=== PATIENT | male | born 1985 | race Caucasian/White ===

== ENCOUNTER → 2016-04-18 | Outpatient (CLI) | payer BC ==
[2016-04-18 08:45] LABS: ALT 65 U/L (21-72); AST 47 U/L (17-59); Alkaline Phosphatase 71 U/L (38-126); Anion Gap 12 mmol/L; Blood Urea Nitrogen 23 mg/dL (9-20); Calcium 9.8 mg/dL (8.4-10.2); Carbon Dioxide 28 mmol/L (22-30); Chloride 102 mmol/L (98-107); Cholesterol 229 mg/dL (<200); Glucose 282 mg/dL (74-99); HDL Cholesterol 98 mg/dL (40-60); Non-African American GFR(MDRD) >60 (>60 ml/min/1.73 sqM); Potassium 5.4 mmol/L (3.5-5.1); Sodium 142 mmol/L (137-145); Total Bilirubin 0.6 mg/dL (0.2-1.3); Total Protein 7.9 g/dL (6.3-8.2); Triglycerides 69 mg/dL (<150)
== END | disposition home or self-care (01) ==
LOC: LABWHC1 08:11
PROVIDERS: ATTEND Internal Medicine Endocrinology, Diabetes & Metabolism
DX: E11.65 Type 2 diabetes mellitus with hyperglycemia (principal); E03.8 Other specified hypothyroidism
CPT/HCPCS: 36415; 80053; 80061; 82043; 84443

== ENCOUNTER → 2016-09-22 | Outpatient (CLI) | payer BC ==
[2016-09-22 08:31] LABS: Basophils # (A) 0.1 k/uL (0-0.2); Basophils % (A) 1 %; CH 29.6; CHCM 33.6; Eosinophils # (A) 0.4 k/uL (0-0.7); Eosinophils % (A) 7 %; HCT 39.9 % (39.0-53.0); HDW 2.81; HGB 13.4 gm/dL (13.0-17.5); Luc # (Auto) 0.16; Luc % (Auto) 3; Lymphocytes # (A) 1.9 k/uL (1.0-4.8); Lymphocytes % (A) 37 %; MCH 29.7 pg (25.0-35.0); MCHC 33.6 g/dL (31.0-37.0); MCV 88.3 fL (80.0-100.0); Mean Platelet Volume 9.1; Monocytes # (A) 0.3 k/uL (0-1.0); Monocytes % (A) 5 %; Neutrophils # (A) 2.3 k/uL (1.3-7.7); Neutrophils % (A) 46 %; RBC 4.52 m/uL (4.30-5.90); RDW 14.9 % (11.5-15.5); WBC (Perox) 4.96
[2016-09-22 08:38] LABS: Amorphous Sediment,Urine Rare /hpf; Appearance,Urine Cloudy (Clear); Bacteria,Urine Rare /hpf; Bilirubin,Urine Negative (Negative); Glucose,Urine (UA) Negative (Negative); Ketones,Urine Negative (Negative); Leukocyte Esterase,Urine Negative (Negative); Mucus,Urine Rare /hpf; Nitrite,Urine Negative (Negative); PH, Urine 5.5 (5.0-8.0); Particle Count 5966; Protein,Urine 2+ (Negative); Specific Gravity,Urine 1.012 (1.001-1.035); Sperm,Urine Few /hpf; UA Billing (MACRO vs. MICRO) MICRO; Urobilinogen,Urine <2.0 mg/dL (<2.0); WBC,Urine 1 /hpf (0-5)
[2016-09-22 10:33] LABS: Urine Creatinine 100.3 mg/dL
[2016-09-22 14:07] LABS: ALT 44 U/L (21-72); AST 28 U/L (17-59); Alkaline Phosphatase 71 U/L (38-126); Anion Gap 9 mmol/L; Blood Urea Nitrogen 21 mg/dL (9-20); Calcium 9.8 mg/dL (8.4-10.2); Carbon Dioxide 27 mmol/L (22-30); Chloride 105 mmol/L (98-107); Cholesterol 176 mg/dL (<200); Glucose 84 mg/dL (74-99); HDL Cholesterol 84 mg/dL (40-60); Iron 70 ug/dL (49-181); Magnesium 2.4 mg/dL (1.6-2.3); Non-African American GFR(MDRD) >60 (>60 ml/min/1.73 sqM); Phosphorous 3.9 mg/dL (2.5-4.5); Potassium 4.7 mmol/L (3.5-5.1); Sodium 141 mmol/L (137-145); Total Bilirubin 0.4 mg/dL (0.2-1.3); Total Protein 7.4 g/dL (6.3-8.2); Triglycerides 50 mg/dL (<150)
[2016-09-22 14:22] LABS: % Iron Saturation 25.1 % (20-50); Total Iron Binding Capacity 279 ug/dL (261-462)
[2016-09-22 19:02] LABS: ANA w/Reflex to Titer NEGATIVE (NEGATIVE)
[2016-09-23 14:06] LABS: C-ANCA <1:20 Titer (<1:20); P-ANCA <1:20 Titer (<1:20)
[2016-09-24 06:10] LABS: Complement Total (CH50) 95 U/mL (42 - 95)
== END | disposition home or self-care (01) ==
LOC: LABWHC1 07:45
PROVIDERS: ATTEND Internal Medicine Nephrology
DX: E11.65 Type 2 diabetes mellitus with hyperglycemia (principal); N18.2 Chronic kidney disease, stage 2 (mild); E11.22 Type 2 diabetes mellitus with diabetic chronic kidney disease; D63.1 Anemia in chronic kidney disease; R80.9 Proteinuria, unspecified; E21.3 Hyperparathyroidism, unspecified; E55.9 Vitamin D deficiency, unspecified; M10.9 Gout, unspecified; N39.0 Urinary tract infection, site not specified
CPT/HCPCS: 36415; 80053; 80061; 81001; 82043; 82306; 82570; 82728; 83516; 83540; 83550; 83735; 83970; 84100; 84165; 84550; 85025; 86038; 86160; 86162; 86225; 86255; 86335

== ENCOUNTER → 2017-04-07 | Outpatient (CLI) | payer BC ==
[2017-04-07 13:27] LABS: Anion Gap 11 mmol/L; Blood Urea Nitrogen 17 mg/dL (9-20); Calcium 9.9 mg/dL (8.4-10.2); Carbon Dioxide 30 mmol/L (22-30); Chloride 101 mmol/L (98-107); Glucose 68 mg/dL (74-99); Magnesium 2.2 mg/dL (1.6-2.3); Sodium 142 mmol/L (137-145)
[2017-04-07 13:35] LABS: Basophils # (A) 0.1 k/uL (0-0.2); Basophils % (A) 1 %; Eosinophils # (A) 0.2 k/uL (0-0.7); Eosinophils % (A) 3 %; HCT 40.7 % (39.0-53.0); Lymphocytes # (A) 1.6 k/uL (1.0-4.8); Lymphocytes % (A) 27 %; MCH 28.8 pg (25.0-35.0); MCHC 31.9 g/dL (31.0-37.0); MCV 90.2 fL (80.0-100.0); Mean Platelet Volume 7.9; Monocytes # (A) 0.3 k/uL (0-1.0); Monocytes % (A) 5 %; Neutrophils # (A) 3.6 k/uL (1.3-7.7); Neutrophils % (A) 62 %; Platelet Count 155 k/uL (150-450); RBC 4.51 m/uL (4.30-5.90); RDW 13.7 % (11.5-15.5); WBC 5.9 k/uL (3.8-10.6)
== END | disposition home or self-care (01) ==
LOC: LABWHC1 12:31
PROVIDERS: ATTEND Nurse Practitioner Family
DX: N18.1 Chronic kidney disease, stage 1 (principal); D64.9 Anemia, unspecified
CPT/HCPCS: 36415; 80048; 83735; 85025

== ENCOUNTER → 2017-09-15 | Outpatient (CLI) | payer BC ==
[2017-09-15 09:39] LABS: Albumin 4.8 g/dL (3.5-5.0); Potassium 4.8 mmol/L (3.5-5.1); Total Bilirubin 0.7 mg/dL (0.2-1.3); Total Protein 7.8 g/dL (6.3-8.2)
[2017-09-15 20:59] LABS: Hemoglobin A1C 10.6 % (4.0-6.0)
== END | disposition home or self-care (01) ==
LOC: LABWHC1 08:21
PROVIDERS: ATTEND Internal Medicine Endocrinology, Diabetes & Metabolism
DX: E10.65 Type 1 diabetes mellitus with hyperglycemia (principal)
CPT/HCPCS: 36415; 80053; 80061; 82043; 82570; 83036; 84443

== ENCOUNTER 2019-11-11 15:13 | Inpatient (IN) | payer BC ==
[2019-11-11 15:25] VITALS: RESP 16
[2019-11-11 15:31] LABS: Glucose,Whole Blood 514 mg/dL (75-99)
[2019-11-11] MEDS ORDERED: SODIUM CHLORIDE 0.9% 2,000 ML IV ONE (15:38)
[2019-11-11 16:00] LABS: VBG PH 7.34 (7.31-7.41)
[2019-11-11 16:05] LABS: ALT 39 U/L (4-49); AST 30 U/L (17-59); African American GFR (CKD) 62 (>60 ml/min/1.73 sqM); Albumin 5.2 g/dL (3.5-5.0); Alkaline Phosphatase 91 U/L (38-126); Anion Gap 20 mmol/L; Blood Urea Nitrogen 33 mg/dL (9-20); Carbon Dioxide 20 mmol/L (22-30); Chloride 92 mmol/L (98-107); Non-African American GFR(CKD) 53 (>60 ml/min/1.73 sqM); Potassium 5.2 mmol/L (3.5-5.1); Sodium 132 mmol/L (137-145); Total Bilirubin 0.9 mg/dL (0.2-1.3); Total Protein 8.1 g/dL (6.3-8.2)
[2019-11-11 16:13] LABS: Basophils # (A) 0.1 k/uL (0-0.2); Basophils % (A) 1 %; Eosinophils % (A) 0 %; HCT 41.3 % (39.0-53.0); HGB 13.1 gm/dL (13.0-17.5); Lymphocytes # (A) 2.4 k/uL (1.0-4.8); Lymphocytes % (A) 22 %; MCHC 31.7 g/dL (31.0-37.0); MCV 88.4 fL (80.0-100.0); Mean Platelet Volume 9.4; Monocytes # (A) 0.5 k/uL (0-1.0); Monocytes % (A) 4 %; Neutrophils # (A) 7.8 k/uL (1.3-7.7); Neutrophils % (A) 72 %; Platelet Count 170 k/uL (150-450); RBC 4.67 m/uL (4.30-5.90); RDW 13.9 % (11.5-15.5); WBC 10.9 k/uL (3.8-10.6)
[2019-11-11 16:14] LABS: Amorphous Sediment,Urine Rare /hpf; Appearance,Urine Clear (Clear); Bilirubin,Urine Negative (Negative); Blood,Urine Small (Negative); Color,Urine Light Yellow; Glucose 550 mg/dL (74-99); Glucose,Urine (UA) 4+ (Negative); Hyaline Casts,Urine 3 /lpf (0-2); Leukocyte Esterase,Urine Negative (Negative); Mucus,Urine Rare /hpf; Nitrite,Urine Negative (Negative); PH, Urine 5.5 (5.0-8.0); Protein,Urine 1+ (Negative); RBC,Urine <1 /hpf (0-5); Specific Gravity,Urine 1.027 (1.001-1.035); Squamous Epithelial Cell,Urine <1 /hpf (0-4); Urobilinogen,Urine <2.0 mg/dL (<2.0); WBC,Urine 1 /hpf (0-5)
[2019-11-11 16:15] LABS: Ketones,Urine 3+ (Negative)
--- NOTE | 2019-11-11 16:21 | ED ---
General Adult HPI - General Chief complaint: Recheck/Abnormal Lab/Rx Stated complaint: high sugar Time Seen by Provider: 11/11/19 15:37 Source: patient, RN notes reviewed Mode of arrival: ambulatory Limitations: no limitations - History of Present Illness Initial comments: 34-year-old male presents emergency Department chief complaint of elevated blood sugar. Patient is blood sugar has consistently elevated. Patient's blood sugar did not read earlier. Patient did give himself some insulin. Patient states that he's had no recent infections denies any fever, chills, cough, URI symptoms he did have an episode nausea vomiting. Patient denies any chest pain, headache or dizziness. 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 Patient is on insulin injections no insulin pump. Review of Systems ROS Statement: Those systems with pertinent positive or pertinent negative responses have been documented in the HPI. ROS Other: All systems not noted in ROS Statement are negative. Past Medical History Past Medical History: Diabetes Mellitus Additional Past Medical History / Comment(s): T1D History of Any Multi-Drug Resistant Organisms: None Reported Past Surgical History: No Surgical Hx Reported Smoking Status: Never smoker Past Alcohol Use History: Rare Past Drug Use History: None Reported General Exam Limitations: no limitations General appearance: alert, in no apparent distress Head exam: Present: atraumatic, normocephalic, normal inspection Eye exam: Present: normal appearance, PERRL, EOMI. Absent: scleral icterus, conjunctival injection, periorbital swelling ENT exam: Present: normal exam, normal oropharynx, mucous membranes moist Neck exam: Present: normal inspection, full ROM. Absent: tenderness, meningismus, lymphadenopathy Respiratory exam: Present: normal lung sounds bilaterally. Absent: respiratory distress, wheezes, rales, rhonchi, stridor Cardiovascular Exam: Present: regular rate, normal rhythm, normal heart sounds. Absent: systolic murmur, diastolic murmur, rubs, gallop, clicks GI/Abdominal exam: Present: soft, normal bowel sounds. Absent: distended, tenderness, guarding, rebound, rigid Neurological exam: Present: alert, oriented X3 Skin exam: Present: warm, dry, intact, normal color. Absent: rash Course Vital Signs 11/11/19 15:23 Temperature 98.0 F Pulse Rate 66 Respiratory 16 Rate Blood Pressure 134/75 O2 Sat by Pulse 99 Oximetry Procedures - [place] Protocol (Time Out) Nurse: Rosa Belle Medical Decision Making - Medical Decision Making Initially med telemetry for DKA. Patient was given fluid bolus, started on insulin drip with repeat labs. - Lab Data Result diagrams: 11/11/19 15:40 11/11/19 15:40 Lab Results 11/11/19 11/11/19 11/11/19 Range/Units 15:30 15:40 15:40 WBC 10.9 H (3.8-10.6) k/uL RBC 4.67 (4.30-5.90) m/uL Hgb 13.1 (13.0-17.5) gm/dL Hct 41.3 (39.0-53.0) % MCV 88.4 (80.0-100.0) fL MCH 28.0 (25.0-35.0) pg MCHC 31.7 (31.0-37.0) g/dL RDW 13.9 (11.5-15.5) % Plt Count 170 (150-450) k/uL Neutrophils % 72 % Lymphocytes % 22 % Monocytes % 4 % Eosinophils % 0 % Basophils % 1 % Neutrophils # 7.8 H (1.3-7.7) k/uL Lymphocytes # 2.4 (1.0-4.8) k/uL Monocytes # 0.5 (0-1.0) k/uL Eosinophils # 0.0 (0-0.7) k/uL Basophils # 0.1 (0-0.2) k/uL VBG pH (7.31-7.41) VBG pCO2 (37-51) mmHg VBG HCO3 (24-28) mmol/L Sodium (137-145) mmol/L Potassium (3.5-5.1) mmol/L Chloride (98-107) mmol/L Carbon Dioxide (22-30) mmol/L Anion Gap mmol/L BUN (9-20) mg/dL Creatinine (0.66-1.25) mg/dL Est GFR (CKD-EPI)AfAm (>60 ml/min/1.73 sqM) Est GFR (CKD-EPI)NonAf (>60 ml/min/1.73 sqM) Glucose (74-99) mg/dL POC Glucose (mg/dL) 514 H (75-99) mg/dL POC Glu Phone Circuit Operator ID Rosa Belle Plasma Lactic Acid Ben (0.7-2.0) mmol/L Calcium (8.4-10.2) mg/dL Total Bilirubin (0.2-1.3) mg/dL AST (17-59) U/L ALT (4-49) U/L Alkaline Phosphatase (38-126) U/L Total Protein (6.3-8.2) g/dL Albumin (3.5-5.0) g/dL Urine Color Light Yellow Urine Appearance Clear (Clear) Urine pH 5.5 (5.0-8.0) Ur Specific [place] 1.027 (1.001-1.035) Urine Protein 1+ H (Negative) Urine Glucose (UA) 4+ H (Negative) Urine Ketones 3+ H (Negative) Urine Blood Small H (Negative) Urine Nitrite Negative (Negative) Urine Bilirubin Negative (Negative) Urine Urobilinogen <2.0 (<2.0) mg/dL Ur Leukocyte Esterase Negative (Negative) Urine RBC <1 (0-5) /hpf Urine WBC 1 (0-5) /hpf Ur Squamous Epith Cells <1 (0-4) /hpf Amorphous Sediment Rare H (None) /hpf Hyaline Casts 3 H (0-2) /lpf Urine Mucus Rare H (None) /hpf Acetone, Qual (Negative) 11/11/19 11/11/19 11/11/19 Range/Units 15:40 15:40 15:40 WBC (3.8-10.6) k/uL RBC (4.30-5.90) m/uL Hgb (13.0-17.5) gm/dL Hct (39.0-53.0) % MCV (80.0-100.0) fL MCH (25.0-35.0) pg MCHC (31.0-37.0) g/dL RDW (11.5-15.5) % Plt Count (150-450) k/uL Neutrophils % % Lymphocytes % % Monocytes % % Eosinophils % % Basophils % % Neutrophils # (1.3-7.7) k/uL Lymphocytes # (1.0-4.8) k/uL Monocytes # (0-1.0) k/uL Eosinophils # (0-0.7) k/uL Basophils # (0-0.2) k/uL VBG pH 7.34 (7.31-7.41) VBG pCO2 42 (37-51) mmHg VBG HCO3 22 L (24-28) mmol/L Sodium 132 L (137-145) mmol/L Potassium 5.2 H (3.5-5.1) mmol/L Chloride 92 L (98-107) mmol/L Carbon Dioxide 20 L (22-30) mmol/L Anion Gap 20 mmol/L BUN 33 H (9-20) mg/dL Creatinine 1.64 H (0.66-1.25) mg/dL Est GFR (CKD-EPI)AfAm 62 (>60 ml/min/1.73 sqM) Est GFR (CKD-EPI)NonAf 53 (>60 ml/min/1.73 sqM) Glucose 550 H* (74-99) mg/dL POC Glucose (mg/dL) (75-99) mg/dL POC Glu Phone Circuit Operator ID Plasma Lactic Acid Ben 1.8 (0.7-2.0) mmol/L Calcium 10.0 (8.4-10.2) mg/dL Total Bilirubin 0.9 (0.2-1.3) mg/dL AST 30 (17-59) U/L ALT 39 (4-49) U/L Alkaline Phosphatase 91 (38-126) U/L Total Protein 8.1 (6.3-8.2) g/dL Albumin 5.2 H (3.5-5.0) g/dL Urine Color Urine Appearance (Clear) Urine pH (5.0-8.0) Ur Specific [place] (1.001-1.035) Urine Protein (Negative) Urine Glucose (UA) (Negative) Urine Ketones (Negative) Urine Blood (Negative) Urine Nitrite (Negative) Urine Bilirubin (Negative) Urine Urobilinogen (<2.0) mg/dL Ur Leukocyte Esterase (Negative) Urine RBC (0-5) /hpf Urine WBC (0-5) /hpf Ur Squamous Epith Cells (0-4) /hpf Amorphous Sediment (None) /hpf Hyaline Casts (0-2) /lpf Urine Mucus (None) /hpf Acetone, Qual Positive (Negative) 11/11/19 Range/Units 16:43 WBC (3.8-10.6) k/uL RBC (4.30-5.90) m/uL Hgb (13.0-17.5) gm/dL Hct (39.0-53.0) % MCV (80.0-100.0) fL MCH (25.0-35.0) pg MCHC (31.0-37.0) g/dL RDW (11.5-15.5) % Plt Count (150-450) k/uL Neutrophils % % Lymphocytes % % Monocytes % % Eosinophils % % Basophils % % Neutrophils # (1.3-7.7) k/uL Lymphocytes # (1.0-4.8) k/uL Monocytes # (0-1.0) k/uL Eosinophils # (0-0.7) k/uL Basophils # (0-0.2) k/uL VBG pH (7.31-7.41) VBG pCO2 (37-51) mmHg VBG HCO3 (24-28) mmol/L Sodium (137-145) mmol/L Potassium (3.5-5.1) mmol/L Chloride (98-107) mmol/L Carbon Dioxide (22-30) mmol/L Anion Gap mmol/L BUN (9-20) mg/dL Creatinine (0.66-1.25) mg/dL Est GFR (CKD-EPI)AfAm (>60 ml/min/1.73 sqM) Est GFR (CKD-EPI)NonAf (>60 ml/min/1.73 sqM) Glucose (74-99) mg/dL POC Glucose (mg/dL) 472 H (75-99) mg/dL POC Glu Phone Circuit Operator ID [place], Rosa Plasma Lactic Acid Ben (0.7-2.0) mmol/L Calcium (8.4-10.2) mg/dL Total Bilirubin (0.2-1.3) mg/dL AST (17-59) U/L ALT (4-49) U/L Alkaline Phosphatase (38-126) U/L Total Protein (6.3-8.2) g/dL Albumin (3.5-5.0) g/dL Urine Color Urine Appearance (Clear) Urine pH (5.0-8.0) Ur Specific [place] (1.001-1.035) Urine Protein (Negative) Urine Glucose (UA) (Negative) Urine Ketones (Negative) Urine Blood (Negative) Urine Nitrite (Negative) Urine Bilirubin (Negative) Urine Urobilinogen (<2.0) mg/dL Ur Leukocyte Esterase (Negative) Urine RBC (0-5) /hpf Urine WBC (0-5) /hpf Ur Squamous Epith Cells (0-4) /hpf Amorphous Sediment (None) /hpf Hyaline Casts (0-2) /lpf Urine Mucus (None) /hpf Acetone, Qual (Negative) Critical Care Time Critical Care Time: Yes Total Critical Care Time: 35 Critical Care Time: Total 35 minutes of critical care time use to initially used to evaluate regan ent, review past month very, or any labs, reviewing old labs or a fluid bolus and insulin drip. Case discussed with admitting physician. Patiently admitted to telemetry. Disposition Clinical Impression: DKA (diabetic ketoacidoses) Disposition: ADMITTED IP TO THIS HOSP Condition: Fair Referrals: Ale Edwards MD [Primary Care Provider] - 1-2 days
[2019-11-11 16:46] LABS: Glucose,Whole Blood 472 mg/dL (75-99)
[2019-11-11] MEDS ORDERED: SODIUM CHLORIDE 0.9% 1,000 ML IV SCH (17:30)
[2019-11-11] MEDS ORDERED: INSULIN REGULAR 100 UNIT in SODIUM CHLORIDE 0.9% 100 ML IV SCH (17:30)
[2019-11-11 17:49] LABS: Glucose,Whole Blood 372 mg/dL (75-99)
[2019-11-11] MEDS ORDERED: D5-0.45% NACL WITH KCL 20MEQ/L 1,000 ML IV SCH (18:30)
[2019-11-11 19:11] LABS: Glucose,Whole Blood 296 mg/dL (75-99)
[2019-11-11] MEDS ORDERED: ACETAMINOPHEN TAB 325 MG TAB PO PRN (19:27)
[2019-11-11] MEDS ORDERED: NALOXONE 0.4 MG/ML 1 ML VIAL IV PRN (19:27)
[2019-11-11 19:56] LABS: Glucose,Whole Blood 228 mg/dL (75-99)
[2019-11-11] MEDS: HEPARIN SODIUM,PORCINE 5,000 UNIT/ML 1 ML VIAL SQ SCH (20:53)
[2019-11-11 21:08] LABS: Glucose,Whole Blood 221 mg/dL (75-99)
[2019-11-11 21:10] LABS: Potassium 4.2 mmol/L (3.5-5.1)
[2019-11-11] MEDS: DEXTROSE 5%-0.45% NACL 1,000 ML IV SCH (21:26)
[2019-11-11 22:00] LABS: Glucose,Whole Blood 232 mg/dL (75-99)
[2019-11-11 23:03] LABS: Glucose,Whole Blood 192 mg/dL (75-99)
[2019-11-11 23:58] LABS: Glucose,Whole Blood 192 mg/dL (75-99)
[2019-11-12 00:57] LABS: Calcium 8.6 mg/dL (8.4-10.2); Phosphorus 2.9 mg/dL (2.5-4.5); Potassium 4.2 mmol/L (3.5-5.1)
[2019-11-12 01:03] LABS: Glucose,Whole Blood 115 mg/dL (75-99)
[2019-11-12] MEDS ORDERED: INSULIN DETEMIR (LEVEMIR) 100 UNIT/ML SYR SQ SCH (01:19)
[2019-11-12] MEDS: DEXTROSE 5%-0.45% NACL 1,000 ML IV SCH (01:33)
[2019-11-12] MEDS ORDERED: LEVOTHYROXINE 125 MCG TAB PO SCH (06:30)
[2019-11-12 06:49] LABS: Basophils # (A) 0.1 k/uL (0-0.2); Basophils % (A) 1 %; Eosinophils # (A) 0.1 k/uL (0-0.7); Eosinophils % (A) 1 %; HCT 35.1 % (39.0-53.0); HGB 11.4 gm/dL (13.0-17.5); Lymphocytes # (A) 2.1 k/uL (1.0-4.8); Lymphocytes % (A) 34 %; MCH 27.9 pg (25.0-35.0); MCHC 32.5 g/dL (31.0-37.0); MCV 85.9 fL (80.0-100.0); Monocytes # (A) 0.4 k/uL (0-1.0); Monocytes % (A) 6 %; Neutrophils # (A) 3.5 k/uL (1.3-7.7); Neutrophils % (A) 55 %; Platelet Count 154 k/uL (150-450); RBC 4.08 m/uL (4.30-5.90); RDW 14.3 % (11.5-15.5); WBC 6.3 k/uL (3.8-10.6)
[2019-11-12 06:57] LABS: Albumin 3.8 g/dL (3.5-5.0); Calcium 8.8 mg/dL (8.4-10.2); Potassium 4.5 mmol/L (3.5-5.1); Total Bilirubin 0.6 mg/dL (0.2-1.3); Total Protein 6.3 g/dL (6.3-8.2)
[2019-11-12 07:06] LABS: Glucose,Whole Blood 55 mg/dL (75-99)
[2019-11-12] MEDS: INSULIN ASPART (NovoLOG) 100 UNIT/ML VIAL SQ SCH ×2 (07:09→12:56)
[2019-11-12 07:23] LABS: Glucose,Whole Blood 73 mg/dL (75-99)
[2019-11-12] MEDS ORDERED: PRAVASTATIN SODIUM 20 MG TAB PO SCH (09:00)
--- NOTE | 2019-11-12 09:10 | P.HPIM ---
History of Present Illness H&P Date: 11/11/19 34-year-old male with PMH of hypothyroidism, type 1 diabetes mellitus presents to [facility] for nausea and vomiting. Patient states this morning he felt nausea and had one episode of vomiting. He also endorsed abdominal bloating. He attempted to check his blood sugar which his glucometer was not registering. He gave himself 8 units of insulin prior to coming to the ED. Denies any other symptoms. States that his sugars are usually under control. He denies any headache, lower extremity edema, nausea or vomiting, fever chills, cough, chest pain, shortness of breath, palpitations, changes in urination or bowel habits. No changes in appetite away. He denies any dizzines s, numbness/weakness/tingling of extremities. In the ED, his vital signs are stable. CBC showed leukocytosis of 10.9. VBG showed pH of 7.34, pCO2 of 42, bicarb of 22. CMP showed sodium 132, potassium 5.2, chloride 92, bicarb 20, BUN 33, creatinine 1.64, glucose 550. Lactic acid was negative. Urinalysis showed 3+ ketones. Acetone was negative. Patient is admitted for DKA. Review of Systems Pertinent positives and negatives as discussed in HPI, a complete review of systems was performed and all other systems are negative. Past Medical History Past Medical History: Diabetes Mellitus Additional Past Medical History / Comment(s): T1D History of Any Multi-Drug Resistant Organisms: None Reported Past Surgical History: No Surgical Hx Reported Smoking Status: Never smoker Past Alcohol Use History: Rare Past Drug Use History: None Reported - Past Family History Father Family Medical History: Myocardial Infarction (MS) Additional Family Medical History / Comment(s): of a heart attack Medications and Allergies Home Medications Medication Instructions Recorded Confirmed Type INSULIN ASPART (NovoLOG) [NovoLOG 2 units SQ AC-LUNCH 11/11/19 11/11/19 History (formulary)] INSULIN ASPART (NovoLOG) [NovoLOG 3 units SQ AC-BID 11/11/19 11/11/19 History (formulary)] INSULIN ASPART (NovoLOG) [NovoLOG 8 unit SQ ONCE 11/11/19 11/11/19 History (formulary)] Insulin Glargine [Lantus] 16 - 20 units PO HS 11/11/19 11/11/19 History Levothyroxine Sodium [Synthroid] 125 mcg PO QAM 11/11/19 11/11/19 History Mv-Mn/C/Glutamin/Lysin/[id number] 2 tab PO BID 11/11/19 11/11/19 History [Airborne Gummies] Pravastatin Sodium [Pravachol] 10 mg PO QAM 11/11/19 11/11/19 History guaiFENesin-DM 100-10MG/5ML 400 mg PO Q6H PRN 11/11/19 11/11/19 History [Robitussin DM] Allergies Allergy/AdvReac Type Severity Reaction Status Date / Time No Known Allergies Allergy Verified 11/11/19 18:02 Physical Exam Vitals: Vital Signs Temp Pulse Resp BP Pulse Ox 11/11/19 18:01 76 16 118/77 99 11/11/19 15:23 98.0 F 66 16 134/75 99 Intake and Output 11/11/19 11/11/19 11/11/19 06:59 14:59 22:59 Intake Total 7.991 Balance 7.991 Intake: Intake, IV Titration 7.991 Amount Insulin Regular 100 unit 7.991 In Sodium Chloride 0.9% 100 ml @ 0.1 UNITS/KG/HR 7.376 mls/hr IV .[id number] [facility] Rx#:[id number] Other: Weight 73.028 kg General: [non toxic], [no distress], [appears at stated age] Derm: [warm], [dry] Head: [atraumatic], [normocephalic], [symmetric] Eyes: [EOMI], [no lid lag], [anicteric sclera] Mouth: [no lip lesion], [mucus membranes moist] Cardiovascular: [S1S2 reg], [no murmur], [positive posterior tibial pulse bilateral], Lungs: [CTA bilateral], [no rhonchi, no rales] , [no accessory muscle use] Abdominal: [soft], [ nontender to palpation], [no guarding], [no appreciable organomegaly] Ext: [no gross muscle atrophy], [no edema], [no contractures] Neuro: [ CN II-XI grossly intact], [no focal neuro deficits] Psych: [Alert], [oriented], [appropriate affect] Results CBC & Chem 7: 11/12/19 06:16 11/12/19 06:16 Labs: Abnormal Lab Results - Last 24 Hours (Table) 11/11/19 11/11/19 11/11/19 Range/Units 15:30 15:40 15:40 WBC 10.9 H (3.8-10.6) k/uL Neutrophils # 7.8 H (1.3-7.7) k/uL VBG HCO3 (24-28) mmol/L Sodium (137-145) mmol/L Potassium (3.5-5.1) mmol/L Chloride (98-107) mmol/L Carbon Dioxide (22-30) mmol/L BUN (9-20) mg/dL Creatinine (0.66-1.25) mg/dL Glucose (74-99) mg/dL POC Glucose (mg/dL) 514 H (75-99) mg/dL Albumin (3.5-5.0) g/dL Urine Protein 1+ H (Negative) Urine Glucose (UA) 4+ H (Negative) Urine Ketones 3+ H (Negative) Urine Blood Small H (Negative) Amorphous Sediment Rare H (None) /hpf Hyaline Casts 3 H (0-2) /lpf Urine Mucus Rare H (None) /hpf 11/11/19 11/11/19 11/11/19 Range/Units 15:40 15:40 16:43 WBC (3.8-10.6) k/uL Neutrophils # (1.3-7.7) k/uL VBG HCO3 22 L (24-28) mmol/L Sodium 132 L (137-145) mmol/L Potassium 5.2 H (3.5-5.1) mmol/L Chloride 92 L (98-107) mmol/L Carbon Dioxide 20 L (22-30) mmol/L BUN 33 H (9-20) mg/dL Creatinine 1.64 H (0.66-1.25) mg/dL Glucose 550 H* (74-99) mg/dL POC Glucose (mg/dL) 472 H (75-99) mg/dL Albumin 5.2 H (3.5-5.0) g/dL Urine Protein (Negative) Urine Glucose (UA) (Negative) Urine Ketones (Negative) Urine Blood (Negative) Amorphous Sediment (None) /hpf Hyaline Casts (0-2) /lpf Urine Mucus (None) /hpf 11/11/19 Range/Units 17:44 WBC (3.8-10.6) k/uL Neutrophils # (1.3-7.7) k/uL VBG HCO3 (24-28) mmol/L Sodium (137-145) mmol/L Potassium (3.5-5.1) mmol/L Chloride (98-107) mmol/L Carbon Dioxide (22-30) mmol/L BUN (9-20) mg/dL Creatinine (0.66-1.25) mg/dL Glucose (74-99) mg/dL POC Glucose (mg/dL) 372 H (75-99) mg/dL Albumin (3.5-5.0) g/dL Urine Protein (Negative) Urine Glucose (UA) (Negative) Urine Ketones (Negative) Urine Blood (Negative) Amorphous Sediment (None) /hpf Hyaline Casts (0-2) /lpf Urine Mucus (None) /hpf Assessment and Plan Assessment: DKA Leukocytosis Pseudohyponatremia Hyperkalemia Acute kidney injury Hypertension Hypothyroidism Patient appears to be in DKA. He will be started on insulin drip. Patient to be started on D5 half-normal saline at 125 mL per hour. BMP will be repeated every 4 hours. Transition to subcutaneous insulin when anion gap and bicarb normalizes. Telemetry monitoring. Diabetic diet. Diabetic education. Follow A1c. Likely related to the above process. No signs of infection. Plan: Repeat CBC tomorrow morning. Likely related to elevated blood glucose. Plans: Repeat BMP tomorrow morning. Creatinine 1.64. Likely related to dehydration. Plans: IV hydration as above. Repeat BMP tomorrow morning. Avoid nephrotoxins. BP 118/77. Plans: Monitor vitals, adjust medications if necessary. Plans: Restart Synthroid. Patient will be full code.
[2019-11-12] MEDS: HEPARIN SODIUM,PORCINE 5,000 UNIT/ML 1 ML VIAL SQ SCH (09:44)
--- NOTE | 2019-11-12 10:00 | P.DS ---
Providers Date of admission: 11/11/19 17:17 Expected date of discharge: 11/12/19 Attending physician: Camilo Tamez MD [facility] Course: 34-year-old male with PMH of hypothyroidism, type 1 diabetes mellitus presents to [facility] for nausea and vomiting. Patient states this morning he felt nausea and had one episode of vomiting. He also endorsed abdominal bloating. He attempted to check his blood sugar which his glucometer was not registering. He gave himself 8 units of insulin prior to coming to the ED. Denies any other symptoms. States that his sugars are usually under control. He denies any headache, lower extremity edema, nausea or vomiting, fever chills, cough, chest pain, shortness of breath, palpitations, changes in urination or bowel habits. No changes in appetite away. He denies any dizziness, numbness/weakness/tingling of extremities. In the ED, his vital signs are stable. CBC showed leukocytosis of 10.9. VBG showed pH of 7.34, pCO2 of 42, bicarb of 22. CMP showed sodium 132, potassium 5.2, chloride 92, bicarb 20, BUN 33, creatinine 1.64, glucose 550. Lactic acid was negative. Urinalysis showed 3+ ketones. Acetone was negative. Patient is admitted for DKA. Patient was initially started on an insulin drip and D5 half-normal saline. BMP was repeated until electrolytes normalized. He was transitioned to subcutaneous insulin. His anion gap and bicarb normalized. He did have an episode of hypoglycemia for which he was asymptomatic. Patient was seen and examined. No acute events overnight. Patient reports feeling well. He denies any chest pain, shortness breath or palpitations. No nausea or vomiting. No fever chills. No abdominal pain. Wanting to go home. General: [non toxic], [no distress], [appears at stated age] Derm: [warm], [dry] Head: [atraumatic], [normocephalic], [symmetric] Eyes: [EOMI], [no lid lag], [anicteric sclera] Mouth: [no lip lesion], [mucus membranes moist] Cardiovascular: [S1S2 reg], [no murmur], [positive DP pulse bilateral], Lungs: [CTA bilateral], [no rhonchi, no rales] , [no accessory muscle use] Abdominal: [soft], [ nontender to palpation], [no guarding], [no appreciable organomegaly] Ext: [no gross muscle atrophy], [no edema], [no contractures] Neuro: [no focal neuro deficits] Psych: [Alert], [oriented], [appropriate affect] DKA Acute kidney injury Hypertension Hypothyroidism Resolved: Leukocytosis, pseudohyponatremia, hyperkalemia Patient's DKA is resolved. Anion gap normalized. Bicarb normal. Tolerating diet well. Transition to subcutaneous insulin. A1c pending. Creatinine 1.26. Likely related to dehydration. Plans: Encourage hydration by mouth. Avoid nephrotoxins. BP 105/58. Plans: Monitor vitals, adjust medications if necessary. Plans: Restart Synthroid. [DKA has resolved. Patient feeling well. Anticipate DC home today. Has diabetic supplies at home. Complex discharge took about 35 minutes to complete.] Patient Condition at Discharge: Stable Plan - Discharge Summary Discharge Rx Participant: No New Discharge Prescriptions: Continue INSULIN ASPART (NovoLOG) [NovoLOG (formulary)] 3 units SQ AC-BID Pravastatin Sodium [Pravachol] 10 mg PO QAM Levothyroxine Sodium [Synthroid] 125 mcg PO QAM Insulin Glargine [Lantus] 16 - 20 units PO HS #6 vial INSULIN ASPART (NovoLOG) [NovoLOG (formulary)] 2 units SQ AC-LUNCH #3 vial Discontinued Mv-Mn/C/Glutamin/Lysin/Lbvk896 [Airborne Gummies] 2 tab PO BID guaiFENesin-DM 100-10MG/5ML [Robitussin DM] 400 mg PO Q6H PRN PRN Reason: Cough INSULIN ASPART (NovoLOG) [NovoLOG (formulary)] 8 unit SQ ONCE Discharge Medication List INSULIN ASPART (NovoLOG) [NovoLOG (formulary)] 3 units SQ AC-BID 11/11/19 [History] Levothyroxine Sodium [Synthroid] 125 mcg PO QAM 11/11/19 [History] Pravastatin Sodium [Pravachol] 10 mg PO QAM 11/11/19 [History] INSULIN ASPART (NovoLOG) [NovoLOG (formulary)] 2 units SQ AC-LUNCH #3 vial 11/12/19 [Rx] Insulin Glargine [Lantus] 16 - 20 units PO HS #6 vial 11/12/19 [Rx] Follow up Appointment(s)/Referral(s): Ale Edwards MD [Primary Care Provider] - 1-2 days Tamy Pendleton MD [STAFF PHYSICIAN] - 1 Week Activity/Diet/Wound Care/Special Instructions: Diet: Diabetic Follow-up PCP within 3 days of discharge. Follow-up with your mailroom courier within 1 week of discharge. Take all medications as advised. Resume home dose of insulin. Check your blood sugars on a regular basis. Come back to the ED or call 911 for worsening chest pain, shortness breath, palpitations, dizziness, intractable abdominal pain, intractable nausea and vomiting. Discharge Disposition: HOME SELF-CARE
[2019-11-12 11:17] VITALS: BP 118/73; TEMP 98
[2019-11-12 11:36] VITALS: BMI 27.1
[2019-11-12 12:10] LABS: Glucose,Whole Blood 185 mg/dL (75-99)
[2019-11-12 14:20] VITALS: PULSE 91
[2019-11-12 20:55] LABS: Hemoglobin A1C 8.9 % (4.0-6.0)
== END 2019-11-12 14:41 | disposition home or self-care (01) | DRG 638 ==
LOC: EC 15:13 → 3SCARD 17:17
PROVIDERS: ADMIT Family Medicine; ATTEND Family Medicine
DX: E10.10 Type 1 diabetes mellitus with ketoacidosis without coma (principal); N17.9 Acute kidney failure, unspecified; E87.5 Hyperkalemia; E86.0 Dehydration; I10 Essential (primary) hypertension; E03.9 Hypothyroidism, unspecified; D72.829 Elevated white blood cell count, unspecified; Z82.49 Family history of ischemic heart disease and other diseases of the circulatory system; Z79.4 Long term (current) use of insulin; Z79.890 Hormone replacement therapy
CPT/HCPCS: 36415; 80048; 80051; 80053; 81001; 82009; 82565; 82803; 82947; 83036; 83605; 83735; 84100; 84520; 85025; 96361; 96365; 99285

== ENCOUNTER → 2020-02-13 | Outpatient (CLI) | payer BC ==
[2020-02-13 16:01] LABS: Urine Creatinine 85.6 mg/dL
[2020-02-13 16:16] LABS: Chol/HDL Ratio 2.86; Cholesterol 220 mg/dL (0-200); Triglycerides <50.0 mg/dL (0.0-149.0)
[2020-02-13 20:32] LABS: Hemoglobin A1C 6.3 % (4.0-6.0)
== END | disposition home or self-care (01) ==
LOC: LABWHC1 08:03
PROVIDERS: ATTEND Internal Medicine
DX: E10.9 Type 1 diabetes mellitus without complications (principal); E03.9 Hypothyroidism, unspecified
CPT/HCPCS: 36415; 80061; 82043; 82570; 83036; 84439; 84443

== ENCOUNTER 2022-05-16 13:44 | Emergency (ER) | payer BC ==
[2022-05-16 13:55] VITALS: RESP 18; TEMP 97.6
[2022-05-16 14:02] LABS: Glucose,Whole Blood 32 mg/dL (70-110)
[2022-05-16] MEDS ORDERED: DEXTROSE 50% SYRINGE 50 ML IVP STA (14:07)
--- NOTE | 2022-05-16 14:17 | ED ---
General Adult HPI - General Chief complaint: Dizziness Stated complaint: hypoglycemia Time Seen by Provider: 05/16/22 14:01 Source: patient, EMS, RN notes reviewed Mode of arrival: EMS Limitations: no limitations - History of Present Illness Initial comments: Patient is a 36-year-old male presenting to the emergency room via EMS with complaints of just not feeling right and when he checked his glucose levels his level was found to be severely low at 53. He denies any loss of consciousness but he did have cold clammy sensation with some nausea and vomiting. He took his insulin this morning of Lantus 16 units along with 2 units of NovoLog and did report eating breakfast this morning prior to going to work. He has not had issues with hypoglycemia in some time but he was having issues with hyperglycemia during the night which resulted in splitting his Lantus dose since his split dosing he has been doing overall well from a glucose standpoint. He denies any other complaints or concerns including any chest pain, shortness of breath, abdominal pain, altered mental status, focal neurological deficits, fevers or chills. He is a type I diabetic with a continuous glucose monitor on insulin injections. He denies any sick other significant past medical history. - Related Data Home Medications Medication Instructions Recorded Confirmed Levothyroxine Sodium [Synthroid] 125 mcg PO DAILY 11/11/19 05/16/22 Insulin Aspart [NovoLOG Flexpen] See Protocol SQ AC-TID 05/16/22 05/16/22 Insulin Glargine,Hum.rec.anlog 16 units SQ BID 05/16/22 05/16/22 [Lantus Solostar Pen] Allergies Allergy/AdvReac Type Severity Reaction Status Date / Time No Known Allergies Allergy Verified 05/16/22 14:51 Review of Systems ROS Statement: Those systems with pertinent positive or pertinent negative responses have been documented in the HPI. ROS Other: All systems not noted in ROS Statement are negative. Past Medical History Past Medical History: Diabetes Mellitus Additional Past Medical History / Comment(s): T1D History of Any Multi-Drug Resistant Organisms: None Reported Past Surgical History: Tonsillectomy Past Psychological History: No Psychological Hx Reported Smoking Status: Never smoker Past Alcohol Use History: Rare Past Drug Use History: None Reported - Past Family History Father Family Medical History: Myocardial Infarction ([place]) Additional Family Medical History / Comment(s): of a heart attack General Exam - General Exam Comments Initial Comments: GENERAL: No acute distress, well developed, well nourished. Appears fatigued HEENT: Normocephalic, atraumatic. Pupils equal, round, reactive to light. Moist mucous membranes. LUNGS: No respiratory distress. Clear to auscultation, no adventitious sounds, no use of accessory muscles. HEART: Regular rate and rhythm without murmur, rub, or gallop. ABDOMEN: Normal bowel sounds. Soft, non-tender, non-distended. BACK: Normal inspection. EXTREMITIES: No edema. No tenderness. Moves all extremities. NEUROLOGIC: Alert & oriented x 3. CN II-XII grossly intact. PSYCHIATRIC: Normal affect and behavior. DERMATOLOGIC: Skin intact, without rashes or lesions noted. Limitations: no limitations Course Vital Signs 05/16/22 05/16/22 13:48 16:06 Temperature 97.6 F Pulse Rate 96 94 Respiratory 18 18 Rate Blood Pressure 141/81 134/84 O2 Sat by Pulse 95 96 Oximetry Medical Decision Making - Medical Decision Making Was pt. sent in by a medical professional or institution (, PA, VIDEOTAPE SALES REPRESENTATIVE, urgent care, hospital, or care home...) When possible be specific @ -No Did you speak to anyone other than the patient for history (EMS, parent, family, police, friend...)? What history was obtained from this source @ -EMS and sister Did you review nursing and triage notes (agree or disagree)? Why? @ -I reviewed and agree with nursing and triage notes Were old charts reviewed (outside hosp., previous admission, EMS record, old EKG, old radiological studies, urgent care reports/EKG's, care home records)? Report findings @ -No old charts were reviewed Differential Diagnosis (chest pain, altered mental status, abdominal pain women, abdominal pain men, vaginal bleeding, weakness, fever, dyspnea, syncope, headache, dizziness, GI bleed, back pain, seizure, CVA, palpatations, mental health, musculoskeletal)? @ -Differential Weakness: Hypoglycemia, shock, sepsis, hyponatremia, anemia, infection, NC, ETOH, adverse medicine reaction, overdose, stroke, this is not meant to be an all-inclusive list. EKG interpreted by me (3pts min.). @ -None done X-rays interpreted by me (1pt min.). @ -None done CT interpreted by me (1pt min.). @ -None done U/S interpreted by me (1pt. min.). @ -None done What testing was considered but not performed or refused? (CT, X-rays, U/S, labs)? Why? @ -None What meds were considered but not given or refused? Why? @ -Continuous dextrose infusion considered but deferred due to response from 1 amp D50 along with tolerated oral intake. Did you discuss the management of the patient with other professionals (professionals i.e. , PA, VIDEOTAPE SALES REPRESENTATIVE, lab, RT, psych nurse, social studies teacher, cad drafter, teacher, program officer, case resource manager)? Give summary @ -No Was smoking cessation discussed for >3mins.? @ -No Was critical care preformed (if so, how long)? @ -No Were there social determinants of health that impacted care today? How? (Homelessness, low income, unemployed, alcoholism, drug addiction, transportation, low edu. Level, literacy, decrease access to med. care, residential, rehab)? @ -No Was there de-escalation of care discussed even if they declined (Discuss DNR or withdrawal of care, Hospice)? DNR status @ -No What co-morbidities impacted this encounter? (DM, HTN, Smoking, COPD, CAD, Cancer, CVA, ARF, Chemo, Hep., AIDS, mental health diagnosis, sleep apnea, morbid obesity)? @ -None Was patient admitted / discharged? Hospital course, mention meds given and route, prescriptions, significant lab abnormalities, going to OR and other pertinent info. @ -[age]-year-old male presenting to the emergency room with generalized unwell feeling and feeling off with known hypoglycemia according his prescription to his continuous glucose monitor. EMS gave juice which he tolerated his glucose continues to be low at 32 upon arrival 1 amp of glucose given. Will monitor closely and if continued low glucose readings will need dextrose infusion. Will obtain laboratory studies of CBC CMP and urinalysis to rule out electrolyte derailment, infection and ketosis. Will monitor blood sugars every 30 minutes or more frequently if needed. Will give juice and food as tolerated as well. CBC unremarkable without abnormalities CMP demonstrates hypoglycemia otherwise no abnormalities. Urinalysis with +2 protein, +3 glucose, rare mucus rare, amorphous sediment, no leukocyte Estrace, bacteria, nitrates or ketones. Repeat glucose close levels trending upwards and maintaining with glucose reading of 81 and then 96 no episodes of rebound hypoglycemia. No indication for further diagnostic imaging or laboratory studies. Findings discussed with patient at length. Encouraged follow-up with primary care provider and practicing urologist for possible adjustment of insulin regimen if needed. Questions and concerns answe red. Strict return parameters to the emergency room discussed. Will discharge home in stable condition after treatment for hypoglycemia and a type I diabetic advising follow-up with practicing urologist and primary care provider. Undiagnosed new problem with uncertain prognosis? @ -No Drug Therapy requiring intensive monitoring for toxicity (Heparin, Nitro, Insulin, Cardizem)? @ -No Were any procedures done? @ -No Diagnosis/symptom? @ -Hypoglycemia and a type I diabetic Acute, or Chronic, or Acute on Chronic? @ -Acute on chronic Uncomplicated (without systemic symptoms) or Complicated (systemic symptoms)? @ -Uncomplicated Side effects of treatment? @ -No Exacerbation, Progression, or Severe Exacerbation? @ -No Poses a threat to life or bodily function? How? (Chest pain, USA, [place], pneumonia, PE, COPD, DKA, ARF, appy, cholecystitis, CVA, Diverticulitis, Homicidal, Suicidal, threat to staff... and all critical care pts) @ -Yes, potential threat however glucose levels stabilize no threat upon discharge. Case discussed with Dr. Roche. - Lab Data Result diagrams: 05/16/22 14:00 05/16/22 14:00 Lab Results 05/16/22 05/16/22 05/16/22 Range/Units 13:59 14:00 14:00 WBC 6.1 (3.8-10.6) k/uL RBC 5.14 (4.30-5.90) m/uL Hgb 14.6 (13.0-17.5) gm/dL Hct 44.9 (39.0-53.0) % MCV 87.4 (80.0-100.0) fL MCH 28.5 (25.0-35.0) pg MCHC 32.6 (31.0-37.0) g/dL RDW 14.2 (11.5-15.5) % Plt Count 151 (150-450) k/uL MPV 9.2 Neutrophils % 57 % Lymphocytes % 30 % Monocytes % 6 % Eosinophils % 5 % Basophils % 1 % Neutrophils # 3.4 (1.3-7.7) k/uL Lymphocytes # 1.8 (1.0-4.8) k/uL Monocytes # 0.3 (0-1.0) k/uL Eosinophils # 0.3 (0-0.7) k/uL Basophils # 0.0 (0-0.2) k/uL Sodium 139 (137-145) mmol/L Potassium 4.8 (3.5-5.1) mmol/L Chloride 102 (98-107) mmol/L Carbon Dioxide 28 (22-30) mmol/L Anion Gap 9 mmol/L BUN 17 (9-20) mg/dL Creatinine 1.24 (0.66-1.25) mg/dL Est GFR (CKD-EPI)AfAm 86 (>60 ml/min/1.73 sqM) Est GFR (CKD-EPI)NonAf 74 (>60 ml/min/1.73 sqM) Glucose 28 L* (74-99) mg/dL POC Glucose (mg/dL) 32 L (70-110) mg/dL POC Glu Dictaphone Transcriber ID Ken Genao Calcium 9.1 (8.4-10.2) mg/dL Total Bilirubin 0.5 (0.2-1.3) mg/dL AST 42 (17-59) U/L ALT 39 (4-49) U/L Alkaline Phosphatase 59 (38-126) U/L Total Protein 7.8 (6.3-8.2) g/dL Albumin 4.6 (3.5-5.0) g/dL Urine Color Urine Appearance (Clear) Urine pH (5.0-8.0) Ur Specific [place] (1.001-1.035) Urine Protein (Negative) Urine Glucose (UA) (Negative) Urine Ketones (Negative) Urine Blood (Negative) Urine Nitrite (Negative) Urine Bilirubin (Negative) Urine Urobilinogen (<2.0) mg/dL Ur Leukocyte Esterase (Negative) Urine WBC (0-5) /hpf Ur Squamous Epith Cells (0-4) /hpf Amorphous Sediment (None) /hpf Urine Mucus (None) /hpf 05/16/22 05/16/22 05/16/22 Range/Units 14:19 15:18 16:03 WBC (3.8-10.6) k/uL RBC (4.30-5.90) m/uL Hgb (13.0-17.5) gm/dL Hct (39.0-53.0) % MCV (80.0-100.0) fL MCH (25.0-35.0) pg MCHC (31.0-37.0) g/dL RDW (11.5-15.5) % Plt Count (150-450) k/uL MPV Neutrophils % % Lymphocytes % % Monocytes % % Eosinophils % % Basophils % % Neutrophils # (1.3-7.7) k/uL Lymphocytes # (1.0-4.8) k/uL Monocytes # (0-1.0) k/uL Eosinophils # (0-0.7) k/uL Basophils # (0-0.2) k/uL Sodium (137-145) mmol/L Potassium (3.5-5.1) mmol/L Chloride (98-107) mmol/L Carbon Dioxide (22-30) mmol/L Anion Gap mmol/L BUN (9-20) mg/dL Creatinine (0.66-1.25) mg/dL Est GFR (CKD-EPI)AfAm (>60 ml/min/1.73 sqM) Est GFR (CKD-EPI)NonAf (>60 ml/min/1.73 sqM) Glucose (74-99) mg/dL POC Glucose (mg/dL) 81 96 (70-110) mg/dL POC Glu Dictaphone Transcriber Ken Pickard John Calcium (8.4-10.2) mg/dL Total Bilirubin (0.2-1.3) mg/dL AST (17-59) U/L ALT (4-49) U/L Alkaline Phosphatase (38-126) U/L Total Protein (6.3-8.2) g/dL Albumin (3.5-5.0) g/dL Urine Color Light Yellow Urine Appearance Clear (Clear) Urine pH 7.0 (5.0-8.0) Ur Specific [place] 1.012 (1.001-1.035) Urine Protein 2+ H (Negative) Urine Glucose (UA) 3+ H (Negative) Urine Ketones Negative (Negative) Urine Blood Negative (Negative) Urine Nitrite Negative (Negative) Urine Bilirubin Negative (Negative) Urine Urobilinogen <2.0 (<2.0) mg/dL Ur Leukocyte Esterase Negative (Negative) Urine WBC <1 (0-5) /hpf Ur Squamous Epith Cells 1 (0-4) /hpf Amorphous Sediment Rare H (None) /hpf Urine Mucus Rare H (None) /hpf Disposition Clinical Impression: Hypoglycemia due to type 1 diabetes mellitus Disposition: HOME SELF-CARE Condition: Stable Instructions (If sedation given, give patient instructions): Hypoglycemia in a Person with Diabetes (ED) Is patient prescribed a controlled substance at d/c from ED?: No Referrals: Jose Espinoza MD [Primary Care Provider] - 1-2 days Time of Disposition: 15:48
[2022-05-16 14:50] LABS: Basophils % (A) 1 %; Eosinophils # (A) 0.3 k/uL (0-0.7); Eosinophils % (A) 5 %; HCT 44.9 % (39.0-53.0); HGB 14.6 gm/dL (13.0-17.5); Lymphocytes # (A) 1.8 k/uL (1.0-4.8); Lymphocytes % (A) 30 %; MCH 28.5 pg (25.0-35.0); MCHC 32.6 g/dL (31.0-37.0); MCV 87.4 fL (80.0-100.0); Mean Platelet Volume 9.2; Monocytes # (A) 0.3 k/uL (0-1.0); Monocytes % (A) 6 %; Neutrophils # (A) 3.4 k/uL (1.3-7.7); Neutrophils % (A) 57 %; Platelet Count 151 k/uL (150-450); RBC 5.14 m/uL (4.30-5.90); RDW 14.2 % (11.5-15.5); WBC 6.1 k/uL (3.8-10.6)
[2022-05-16 14:55] LABS: Amorphous Sediment,Urine Rare /hpf; Appearance,Urine Clear (Clear); Bilirubin,Urine Negative (Negative); Blood,Urine Negative (Negative); Color,Urine Light Yellow; Glucose,Urine (UA) 3+ (Negative); Ketones,Urine Negative (Negative); Leukocyte Esterase,Urine Negative (Negative); Mucus,Urine Rare /hpf; Nitrite,Urine Negative (Negative); Protein,Urine 2+ (Negative); Specific Gravity,Urine 1.012 (1.001-1.035); Squamous Epithelial Cell,Urine 1 /hpf (0-4); Urobilinogen,Urine <2.0 mg/dL (<2.0); WBC,Urine <1 /hpf (0-5)
[2022-05-16 15:05] LABS: Albumin 4.6 g/dL (3.5-5.0); Calcium 9.1 mg/dL (8.4-10.2); Potassium 4.8 mmol/L (3.5-5.1); Total Bilirubin 0.5 mg/dL (0.2-1.3); Total Protein 7.8 g/dL (6.3-8.2)
[2022-05-16 15:20] LABS: Glucose,Whole Blood 81 mg/dL (70-110)
[2022-05-16 16:06] LABS: Glucose,Whole Blood 96 mg/dL (70-110)
[2022-05-16 16:07] VITALS: BP 134/84; PULSE 94
== END 2022-05-16 16:14 | disposition home or self-care (01) ==
LOC: EC 13:44
DX: E10.649 Type 1 diabetes mellitus with hypoglycemia without coma (principal); Z79.4 Long term (current) use of insulin; Z90.89 Acquired absence of other organs
CPT/HCPCS: 36415; 80053; 81001; 85025; 96374; 99284

== ENCOUNTER 2023-02-14 12:23 | Inpatient (IN) | payer BC ==
[2023-02-14] MEDS ORDERED: FAMOTIDINE 20 MG/2 ML VIAL IV STA (13:03)
[2023-02-14] MEDS ORDERED: SODIUM CHLORIDE 0.9% 1,000 ML IV STA (13:03)
[2023-02-14] MEDS ORDERED: ONDANSETRON 4 MG/2 ML VIAL IVP STA (13:03)
[2023-02-14 13:06] LABS: Glucose,Whole Blood 429 mg/dL (70-110)
--- NOTE | 2023-02-14 13:08 | ED ---
General Adult HPI - General Chief complaint: Recheck/Abnormal Lab/Rx Stated complaint: high blood sugar vomiting Time Seen by Provider: 02/14/23 12:53 Source: patient, RN notes reviewed Mode of arrival: ambulatory Limitations: no limitations - History of Present Illness Initial comments: Patient is a pleasant 37-year-old male presenting to the emergency department with concerns for nausea and vomiting. Onset was 5 days ago. Patient has also had a cough for a week. No dyspnea. Patient tested negative at home for COVID- 19 infection. No fevers. Patient's blood sugar has been running high, 400 today. - Related Data Home Medications Medication Instructions Recorded Confirmed Levothyroxine Sodium [Synthroid] 125 mcg PO DAILY 11/11/19 05/16/22 Insulin Aspart [NovoLOG Flexpen] See Protocol SQ AC-TID 05/16/22 05/16/22 Insulin Glargine,Hum.rec.anlog 16 units SQ BID 05/16/22 05/16/22 [Lantus Solostar Pen] Allergies Allergy/AdvReac Type Severity Reaction Status Date / Time No Known Allergies Allergy Verified 02/14/23 12:31 Review of Systems ROS Statement: Those systems with pertinent positive or pertinent negative responses have been documented in the HPI. ROS Other: All systems not noted in ROS Statement are negative. Constitutional: Denies: fever Eyes: Denies: eye pain ENT: Denies: ear pain Respiratory: Reports: cough. Denies: dyspnea Cardiovascular: Denies: chest pain Endocrine: Reports: fatigue, polydipsia Gastrointestinal: Reports: nausea, vomiting. Denies: abdominal pain Genitourinary: Denies: urgency, dysuria Past Medical History Past Medical History: Diabetes Mellitus Additional Past Medical History / Comment(s): T1D History of Any Multi-Drug Resistant Organisms: None Reported Past Surgical History: Tonsillectomy Past Psychological History: No Psychological Hx Reported Smoking Status: Never smoker Past Alcohol Use History: Rare Past Drug Use History: None Reported - Past Family History Father Family Medical History: Myocardial Infarction ([place]) Additional Family Medical History / Comment(s): of a heart attack General Exam Limitations: no limitations General appearance: alert, in no apparent distress Head exam: Present: normocephalic Eye exam: Present: normal appearance ENT exam: Present: mucous membranes dry Neck exam: Present: normal inspection Respiratory exam: Present: normal lung sounds bilaterally Cardiovascular Exam: Present: regular rate, normal rhythm GI/Abdominal exam: Present: soft. Absent: tenderness Extremities exam: Present: normal inspection Neurological exam: Present: alert Psychiatric exam: Present: normal affect, normal mood Skin exam: Present: normal color Course Vital Signs 02/14/23 02/14/23 12:29 14:25 Temperature 98.6 F Pulse Rate 73 85 Respiratory 20 18 Rate Blood Pressure 110/66 95/76 O2 Sat by Pulse 99 98 Oximetry Medical Decision Making - Medical Decision Making Was pt. sent in by a medical professional or institution (, PA, [employer] MK 2 ADVANCED OPERATOR, urgent care, hospital, or [place] health care facility...) When possible be specific @ -No Did you speak to anyone other than the patient for history (EMS, parent, family, police, friend...)? What history was obtained from this source @ -No Did you review nursing and triage notes (agree or disagree)? Why? @ -I reviewed and agree with nursing and triage notes Were old charts reviewed (outside hosp., previous admission, EMS record, old EKG, old radiological studies, urgent care reports/EKG's, [place] health [facility] facility records)? Report findings @ -Previous labs reviewed, especially renal function and creatinine Differential Diagnosis (chest pain, altered mental status, abdominal pain women, abdominal pain men, vaginal bleeding, weakness, fever, dyspnea, syncope, headach e, dizziness, GI bleed, back pain, seizure, CVA, palpatations, mental health, musculoskeletal)? @ -Differential Abdominal Pain Men: Appendicitis, cholecystitis, diverticulosis, ischemic bowel, pancreatitis, hepatitis, UTI, gastroenteritis, AAA, incarcerated hernia, bowel obstruction, constipation, inflammatory bowel, hepatitis, peptic ulcer disease, splenic infarction, perforated viscus, testicular torsion, this is not meant to be an all-inclusive list EKG interpreted by me (3pts min.). @ -As above X-rays interpreted by me (1pt min.). @ -Chest x-ray has questionable right lower lobe infiltrate CT interpreted by me (1pt min.). @ -None done U/S interpreted by me (1pt. min.). @ -None done What testing was considered but not performed or refused? (CT, X-rays, U/S, labs)? Why? @ -None What meds were considered but not given or refused? Why? @ -Patient has influenza and chest x-ray findings are consistent with viral pneumonia. Tamiflu started. Did you discuss the management of the patient with other professionals (narcisa leslie i.e. , PA, [employer] ADVANCED OPERATOR, lab, RT, psych nurse, drug abuse social worker, plastic extruding machine operator, teacher, armed security officer, test case developer)? Give summary @ -Case was discussed with Dr. Torres, who will admit covering for Dr. Knott Was smoking cessation discussed for >3mins.? @ -No Was critical care preformed (if so, how long)? @ -31 minutes care time. Were there social determinants of health that impacted care today? How? (Homelessness, low income, unemployed, alcoholism, drug addiction, transportation, low edu. Level, literacy, decrease access to med. care, skilled nursing, rehab)? @ -No Was there de-escalation of care discussed even if they declined (Discuss DNR or withdrawal of care, Hospice)? DNR status @ -No What co-morbidities impacted this encounter? (DM, HTN, Smoking, COPD, CAD, Cancer, CVA, ARF, Chemo, Hep., AIDS, mental health diagnosis, sleep apnea, morbid obesity)? @ -None Was patient admitted / discharged? Hospital course, mention meds given and route, prescriptions, significant lab abnormalities, going to OR and other pertinent info. @ -Patient reevaluated. Patient is updated on results and plan. Patient has no acute kidney injury and influenza. Patient will be admitted with nephrology consult and further evaluation and IV fluids. Undiagnosed new problem with uncertain prognosis? @ -No Drug Therapy requiring intensive monitoring for toxicity (Heparin, Nitro, Insulin, Cardizem)? @ -No Were any procedures done? @ -No Diagnosis/symptom? @ -Acute kidney injury, influenza Acute, or Chronic, or Acute on Chronic? @ -Acute, acute Uncomplicated (without systemic symptoms) or Complicated (systemic symptoms)? @ -default Side effects of treatment? @ -No Exacerbation, Progression, or Severe Exacerbation? @ -No Poses a threat to life or bodily function? How? (Chest pain, [place], [place], pneumonia, PE, COPD, DKA, ARF, appy, cholecystitis, CVA, Diverticulitis, Homicidal, Suicidal, threat to staff... and all critical care pts) @ -No - Lab Data Result diagrams: 02/14/23 13:07 02/14/23 13:07 Lab Results 02/14/23 02/14/23 02/14/23 Range/Units 12:56 13:07 13:07 WBC 5.6 (3.8-10.6) k/uL RBC 3.87 L (4.30-5.90) m/uL Hgb 11.8 L (13.0-17.5) gm/dL Hct 34.7 L (39.0-53.0) % MCV 89.8 (80.0-100.0) fL MCH 30.5 (25.0-35.0) pg MCHC 34.0 (31.0-37.0) g/dL RDW 14.1 (11.5-15.5) % Plt Count 149 L (150-450) k/uL MPV 9.4 Neutrophils % 79 % Lymphocytes % 15 % Monocytes % 5 % Eosinophils % 0 % Basophils % 0 % Neutrophils # 4.4 (1.3-7.7) k/uL Lymphocytes # 0.8 L (1.0-4.8) k/uL Monocytes # 0.3 (0-1.0) k/uL Eosinophils # 0.0 (0-0.7) k/uL Basophils # 0.0 (0-0.2) k/uL Sodium (137-145) mmol/L Potassium (3.5-5.1) mmol/L Chloride (98-107) mmol/L Carbon Dioxide (22-30) mmol/L Anion Gap mmol/L BUN (9-20) mg/dL Creatinine (0.66-1.25) mg/dL Est GFR (CKD-EPI)AfAm (>60 ml/min/1.73 sqM) Est GFR (CKD-EPI)NonAf (>60 ml/min/1.73 sqM) Glucose (74-99) mg/dL POC Glucose (mg/dL) 429 H (70-110) mg/dL POC Glu Carbon Rod Inserter CHARLES Bryanon Sejal Calcium (8.4-10.2) mg/dL Total Bilirubin (0.2-1.3) mg/dL AST (17-59) U/L ALT (4-49) U/L Alkaline Phosphatase (38-126) U/L Total Protein (6.3-8.2) g/dL Albumin (3.5-5.0) g/dL Amylase (30-110) U/L Lipase (23-300) U/L Urine Color Urine Appearance (Clear) Urine pH (5.0-8.0) Ur Specific [place] (1.001-1.035) Urine Protein (Negative) Urine Glucose (UA) (Negative) Urine Ketones (Negative) Urine Blood (Negative) Urine Nitrite (Negative) Urine Bilirubin (Negative) Urine Urobilinogen (<2.0) mg/dL Ur Leukocyte Esterase (Negative) Urine RBC (0-5) /hpf Urine WBC (0-5) /hpf Amorphous Sediment (None) /hpf Urine Bacteria (None) /hpf Influenza Type A (PCR) Detected A (Not Detectd) Influenza Type B (PCR) Not Detected (Not Detectd) RSV (PCR) Not Detected (Not Detectd) SARS-CoV-2 (PCR) Not Detected (Not Detectd) 02/14/23 02/14/23 02/14/23 Range/Units 13:07 13:07 14:24 WBC (3.8-10.6) k/uL RBC (4.30-5.90) m/uL Hgb (13.0-17.5) gm/dL Hct (39.0-53.0) % MCV (80.0-100.0) fL MCH (25.0-35.0) pg MCHC (31.0-37.0) g/dL RDW (11.5-15.5) % Plt Count (150-450) k/uL MPV Neutrophils % % Lymphocytes % % Monocytes % % Eosinophils % % Basophils % % Neutrophils # (1.3-7.7) k/uL Lymphocytes # (1.0-4.8) k/uL Monocytes # (0-1.0) k/uL Eosinophils # (0-0.7) k/uL Basophils # (0-0.2) k/uL Sodium 130 L (137-145) mmol/L Potassium 4.9 (3.5-5.1) mmol/L Chloride 93 L (98-107) mmol/L Carbon Dioxide 15 L (22-30) mmol/L Anion Gap 22 mmol/L BUN 95 H (9-20) mg/dL Creatinine 9.35 H* (0.66-1.25) mg/dL Est GFR (CKD-EPI)AfAm 7 (>60 ml/min/1.73 sqM) Est GFR (CKD-EPI)NonAf 6 (>60 ml/min/1.73 sqM) Glucose 395 H (74-99) mg/dL POC Glucose (mg/dL) 234 H (70-110) mg/dL POC Glu Carbon Rod Inserter ID Zafar Paul Calcium 7.8 L (8.4-10.2) mg/dL Total Bilirubin 0.7 (0.2-1.3) mg/dL AST 36 (17-59) U/L ALT 53 H (4-49) U/L Alkaline Phosphatase 65 (38-126) U/L Total Protein 6.8 (6.3-8.2) g/dL Albumin 3.9 (3.5-5.0) g/dL Amylase 56 (30-110) U/L Lipase 57 (23-300) U/L Urine Color Colorless Urine Appearance Clear (Clear) Urine pH 5.5 (5.0-8.0) Ur Specific [place] 1.005 (1.001-1.035) Urine Protein 1+ H (Negative) Urine Glucose (UA) 4+ H (Negative) Urine Ketones Trace H (Negative) Urine Blood Small H (Negative) Urine Nitrite Negative (Negative) Urine Bilirubin Negative (Negative) Urine Urobilinogen <2.0 (<2.0) mg/dL Ur Leukocyte Esterase Negative (Negative) Urine RBC <1 (0-5) /hpf Urine WBC 1 (0-5) /hpf Amorphous Sediment Rare H (None) /hpf Urine Bacteria Rare H (None) /hpf Influenza Type A (PCR) (Not Detectd) Influenza Type B (PCR) (Not Detectd) RSV (PCR) (Not Detectd) SARS-CoV-2 (PCR) (Not Detectd) Critical Care Time Critical Care Time: Yes Total Critical Care Time: 31 Disposition Clinical Impression: KIMMIE (acute kidney injury), Influenza Disposition: ADMITTED IP TO THIS HOSP Is patient prescribed a controlled substance at d/c from ED?: No Referrals: Jose Espinoza MD [Primary Care Provider] - 1-2 days Time of Disposition: 14:50
[2023-02-14 13:36] LABS: Basophils % (A) 0 %; Eosinophils % (A) 0 %; HCT 34.7 % (39.0-53.0); HGB 11.8 gm/dL (13.0-17.5); Lymphocytes # (A) 0.8 k/uL (1.0-4.8); Lymphocytes % (A) 15 %; MCH 30.5 pg (25.0-35.0); MCV 89.8 fL (80.0-100.0); Mean Platelet Volume 9.4; Monocytes # (A) 0.3 k/uL (0-1.0); Monocytes % (A) 5 %; Neutrophils # (A) 4.4 k/uL (1.3-7.7); Neutrophils % (A) 79 %; Platelet Count 149 k/uL (150-450); RBC 3.87 m/uL (4.30-5.90); RDW 14.1 % (11.5-15.5); WBC 5.6 k/uL (3.8-10.6)
[2023-02-14 13:44] LABS: ALT 53 U/L (4-49); AST 36 U/L (17-59); African American GFR (CKD) 7 (>60 ml/min/1.73 sqM); Albumin 3.9 g/dL (3.5-5.0); Alkaline Phosphatase 65 U/L (38-126); Amylase 56 U/L (30-110); Anion Gap 22 mmol/L; Blood Urea Nitrogen 95 mg/dL (9-20); Calcium 7.8 mg/dL (8.4-10.2); Carbon Dioxide 15 mmol/L (22-30); Chloride 93 mmol/L (98-107); Glucose 395 mg/dL (74-99); Lipase 57 U/L (23-300); Non-African American GFR(CKD) 6 (>60 ml/min/1.73 sqM); Potassium 4.9 mmol/L (3.5-5.1); Sodium 130 mmol/L (137-145); Total Bilirubin 0.7 mg/dL (0.2-1.3); Total Protein 6.8 g/dL (6.3-8.2)
[2023-02-14] MEDS ORDERED: INSULIN REGULAR 100 UNIT/ML VIAL (IV) IV ONE (13:44)
[2023-02-14 13:45] LABS: Amorphous Sediment,Urine Rare /hpf; Appearance,Urine Clear (Clear); Bacteria,Urine Rare /hpf; Bilirubin,Urine Negative (Negative); Blood,Urine Small (Negative); Color,Urine Colorless; Glucose,Urine (UA) 4+ (Negative); Ketones,Urine Trace (Negative); Leukocyte Esterase,Urine Negative (Negative); Nitrite,Urine Negative (Negative); PH, Urine 5.5 (5.0-8.0); Protein,Urine 1+ (Negative); RBC,Urine <1 /hpf (0-5); Specific Gravity,Urine 1.005 (1.001-1.035); Urobilinogen,Urine <2.0 mg/dL (<2.0); WBC,Urine 1 /hpf (0-5)
--- NOTE | 2023-02-14 13:57 | XR ---
EXAMINATION TYPE: XR chest 2V DATE OF EXAM: 02/14/2023 1:28 PM CLINICAL INDICATION:Male, 37 years old with history of cough; [facility] COMPARISON: Chest radiographs from 11/03/2013 TECHNIQUE: XR chest 2V Frontal and lateral views of the chest. FINDINGS: Lungs/Pleura: Increased airspace opacities in the right middle lobe. There is no evidence of pleural effusion, focal consolidation, or pneumothorax. Pulmonary vascularity: Unremarkable. Heart/mediastinum: Cardiomediastinal silhouette is unremarkable. Musculoskeletal: No acute osseous pathology. Other findings: None IMPRESSION: Right middle lobe airspace opacities correlate for pneumonia.
[2023-02-14 14:25] LABS: Glucose,Whole Blood 234 mg/dL (70-110)
[2023-02-14] MEDS ORDERED: IBUPROFEN 400 MG TAB PO PRN (14:50)
[2023-02-14] MEDS ORDERED: NALOXONE 0.4 MG/ML 1 ML VIAL IV PRN (14:50)
[2023-02-14] MEDS ORDERED: ACETAMINOPHEN TAB 325 MG TAB PO PRN (14:50)
[2023-02-14] MEDS ORDERED: SODIUM CHLORIDE 0.9% 1,000 ML IV SCH (15:00)
[2023-02-14] MEDS ORDERED: OSELTAMIVIR 60 MG/10 ML ORAL SYRINGE PO SCH (15:00)
[2023-02-14] MEDS: PANTOPRAZOLE 40 MG/10 ML VIAL IV SCH (15:03)
--- NOTE | 2023-02-14 16:18 | P.HPIM ---
History of Present Illness H&P Date: 02/14/23 Patient is a 37-year-old male with history of hypertension, dyslipidemia, type 1 diabetes, hypothyroidism presenting with nausea and vomiting. He's also been having cough for about 1 week as well. His and his children are also having upper respiratory symptoms. Tested negative for COVID-19 at home. He claims that he's been having about 5 emesis per day but has been urinating and drinking water well. She has not been able to eat much. He denies any other GI symptoms. He denies any lightheadedness, shortness of breath, chest pain, or travel history. In the ED, temperature was 98.6, respiratory rate 73, blood pressure 110/66, saturating at 99% on room air. WBC 5.6, hemoglobin 11.8, platelet 149, sodium 1:30, chloride 93, bicarbonate 15, creatinine 9.35, BUN 95, blood sugars 429, urinalysis shows 4+ glucose, negative nitrites and leukocyte esterase, acetone negative, influenza A positive. Chest x-ray independently interpreted, no significant opacities noted. Patient being admitted for acute kidney injury and influenza infection. Nephrology has been consulted. Pertinent positives and negatives as discussed in HPI, a complete review of systems was performed and all other systems are negative. Patient seen and examined at bedside. Vital signs reviewed General: nontoxic, no distress, appears at stated age Derm: warm, dry Head: atraumatic, normocephalic, symmetric Eyes: EOMI, no lid lag, anicteric sclera, pupils equal round reactive to light ENT: Nose and ears atraumatic Neck: No thyromegaly, supple Mouth: no lip lesion, mucus membranes dry Cardiovascular: S1S2 reg, no murmur, no edema Lungs: clear to auscultation bilateral, no rhonchi, no rales, no wheeze, no accessory muscle use Abdominal: soft, nontender to palpation, no guarding, no appreciable organomegaly Ext: no gross muscle atrophy, muscle strength muscle strength 5 out of 5 in all 4 extremities, no contractures Neuro: CN II-XII grossly intact Psych: Alert, oriented, appropriate affect Assessment/Plan: Active: Severe acute kidney injury Metabolic acidosis, anion gap Severe dehydration Nausea and vomiting Acute influenza infection -Continue hydration with LR 1 30 mL an hour -bladder scan and renal US -Nephrology consulted -Repeat BMP tomorrow -Zofran 4 mg IV every 8 hours as needed -Due to creatinine clearance less than 10, Tamiflu discontinued -Currently on room air -Hold lisinopril Type 1 diabetes with hyperglycemia -Continue Lantus 15 units daily, sliding scale insulin, monitor for hypoglycemia -Ketone negative Chronic: Dyslipidemia Hypothyroidism The patient is admitted with an anticipated greater than 2 midnight stay as inpatient status for evaluation of KIMMIE. Surrogate decision-maker: CODE STATUS: Full code DVT prophylaxis: Subcu heparin Anticipated discharge date: Pending clinical course Anticipated discharge place: Pending clinical course A total of 55 minutes was spent on the care of this complex patient more than 50% of the time was spent in counseling and care coordination. Past Medical History Past Medical History: Diabetes Mellitus Additional Past Medical History / Comment(s): T1D History of Any Multi-Drug Resistant Organisms: None Reported Past Surgical History: Tonsillectomy Past Anesthesia/Blood Transfusion Reactions: No Reported Reaction Past Psychological History: No Psychological Hx Reported Smoking Status: Never smoker Past Alcohol Use History: Rare Past Drug Use History: None Reported - Past Family History Father Family Medical History: Myocardial Infarction ([place]) Additional Family Medical History / Comment(s): of a heart attack Medications and Allergies Home Medications Medication Instructions Recorded Confirmed Type Insulin Aspart [NovoLOG Flexpen] 3 units SQ TID-W/MEALS 05/16/22 02/14/23 History Insulin Glargine,Hum.rec.anlog 15 units SQ DAILY 05/16/22 02/14/23 History [Lantus Solostar Pen] Azithromycin [Zithromax] See Taper PO DIRECTED 02/14/23 02/14/23 History Glucagon Emergency Kit 1 mg SQ ONCE PRN 02/14/23 02/14/23 History Levothyroxine Sodium [Synthroid] 175 mcg PO DAILY 02/14/23 02/14/23 History Lisinopril (Unknown Strength) 1 dose PO DAILY 02/14/23 02/14/23 History Rosuvastatin Calcium 5 mg PO DAILY 02/14/23 02/14/23 History Allergies Allergy/AdvReac Type Severity Reaction Status Date / Time No Known Allergies Allergy Verified 02/14/23 12:31 Physical Exam Vitals: Vital Signs Temp Pulse Resp BP Pulse Ox 02/14/23 15:39 99.0 F 90 18 92/65 96 02/14/23 14:25 85 18 95/76 98 02/14/23 12:29 98.6 F 73 20 110/66 99 Intake and Output 02/14/23 02/14/23 02/14/23 06:59 14:59 22:59 Other: Weight 73.936 kg 73.936 kg Results CBC & Chem 7: 02/14/23 13:07 02/14/23 13:07 Labs: Abnormal Lab Results - Last 24 Hours (Table) 02/14/23 02/14/23 02/14/23 Range/Units 12:56 13:07 13:07 RBC 3.87 L (4.30-5.90) m/uL Hgb 11.8 L (13.0-17.5) gm/dL Hct 34.7 L (39.0-53.0) % Plt Count 149 L (150-450) k/uL Lymphocytes # 0.8 L (1.0-4.8) k/uL Sodium (137-145) mmol/L Chloride (98-107) mmol/L Carbon Dioxide (22-30) mmol/L BUN (9-20) mg/dL Creatinine (0.66-1.25) mg/dL Glucose (74-99) mg/dL POC Glucose (mg/dL) 429 H (70-110) mg/dL Calcium (8.4-10.2) mg/dL ALT (4-49) U/L Urine Protein (Negative) Urine Glucose (UA) (Negative) Urine Ketones (Negative) Urine Blood (Negative) Amorphous Sediment (None) /hpf Urine Bacteria (None) /hpf Influenza Type A (PCR) Detected A (Not Detectd) 02/14/23 02/14/23 02/14/23 Range/Units 13:07 13:07 14:24 RBC (4.30-5.90) m/uL Hgb (13.0-17.5) gm/dL Hct (39.0-53.0) % Plt Count (150-450) k/uL Lymphocytes # (1.0-4.8) k/uL Sodium 130 L (137-145) mmol/L Chloride 93 L (98-107) mmol/L Carbon Dioxide 15 L (22-30) mmol/L BUN 95 H (9-20) mg/dL Creatinine 9.35 H* (0.66-1.25) mg/dL Glucose 395 H (74-99) mg/dL POC Glucose (mg/dL) 234 H (70-110) mg/dL Calcium 7.8 L (8.4-10.2) mg/dL ALT 53 H (4-49) U/L Urine Protein 1+ H (Negative) Urine Glucose (UA) 4+ H (Negative) Urine Ketones Trace H (Negative) Urine Blood Small H (Negative) Amorphous Sediment Rare H (None) /hpf Urine Bacteria Rare H (None) /hpf Influenza Type A (PCR) (Not Detectd) Thrombosis Risk Factor Assmnt - Choose All That Apply Any of the Below Risk Factors Present?: No Other Risk Factors: No Thrombosis Risk Factor Assessment Level: Very Low Risk
[2023-02-14] MEDS: LACTATED RINGERS 1,000 ML IV SCH (16:46)
--- NOTE | 2023-02-14 17:40 | US ---
EXAMINATION TYPE: US kidneys/renal and bladder DATE OF EXAM: 02/14/2023 COMPARISON: NONE CLINICAL INDICATION: Male, 37 years old with history of kimmie; KIMMIE, Covid EXAM MEASUREMENTS: Right Kidney: 8.8 x 5.4 x 4.6 cm Left Kidney: 10.3 x 5.1 x 6.2 cm Right Kidney: smaller in size, otherwise wnl Left Kidney: tiny anechoic area on superior pole measuring 1.0 x 0.9 x 0.9cm Bladder: not fully distended There is no evidence for hydronephrosis at this point in time. No nephrolithiasis is seen. No rand s are identified IMPRESSION: No hydronephrosis, renal calcification or solid renal mass. Limited evaluation of the urinary bladder dimension.
[2023-02-14 20:26] LABS: Glucose,Whole Blood 83 mg/dL (70-110)
[2023-02-15] MEDS: LACTATED RINGERS 1,000 ML IV SCH ×2 (00:22→09:22)
[2023-02-15 05:09] LABS: Glucose,Whole Blood 366 mg/dL (70-110)
[2023-02-15 05:29] LABS: Basophils % (A) 1 %; Eosinophils % (A) 0 %; HGB 10.3 gm/dL (13.0-17.5); Lymphocytes # (A) 1.7 k/uL (1.0-4.8); Lymphocytes % (A) 31 %; MCH 30.1 pg (25.0-35.0); MCHC 33.4 g/dL (31.0-37.0); MCV 90.3 fL (80.0-100.0); Mean Platelet Volume 9.6; Monocytes # (A) 0.3 k/uL (0-1.0); Monocytes % (A) 6 %; Neutrophils # (A) 3.4 k/uL (1.3-7.7); Neutrophils % (A) 60 %; Platelet Count 142 k/uL (150-450); RBC 3.43 m/uL (4.30-5.90); RDW 14.2 % (11.5-15.5); WBC 5.7 k/uL (3.8-10.6)
[2023-02-15 05:39] LABS: ALT 24 U/L (4-49); AST 26 U/L (17-59); African American GFR (CKD) 7 (>60 ml/min/1.73 sqM); Albumin 3.1 g/dL (3.5-5.0); Albumin/Globulin Ratio 1.1; Alkaline Phosphatase 63 U/L (38-126); Anion Gap 14 mmol/L; Blood Urea Nitrogen 85 mg/dL (9-20); Calcium 7.1 mg/dL (8.4-10.2); Carbon Dioxide 16 mmol/L (22-30); Chloride 98 mmol/L (98-107); Globulin 2.7 g/dL; Glucose 328 mg/dL (74-99); Magnesium 2.6 mg/dL (1.6-2.3); Non-African American GFR(CKD) 6 (>60 ml/min/1.73 sqM); Phosphorus 6.1 mg/dL (2.5-4.5); Sodium 128 mmol/L (137-145); Total Bilirubin 0.6 mg/dL (0.2-1.3); Total Protein 5.8 g/dL (6.3-8.2)
[2023-02-15] MEDS: INSULIN DETEMIR (LEVEMIR) 100 UNIT/ML SYR SQ SCH (06:28)
[2023-02-15] MEDS: LEVOTHYROXINE 88 MCG TAB PO SCH (06:28)
[2023-02-15] MEDS ORDERED: SODIUM BICARB 8.4% 50 ML SYR (1 MEQ/ML) IV STA (08:28)
[2023-02-15] MEDS ORDERED: CALCIUM GLUCONATE IN NACL 2 GM in SALINE 1 100ML.BAG IVPB ONE (08:45)
[2023-02-15] MEDS ORDERED: SODIUM ZIRCONIUM CYCLOSILICATE 10 GM PACKET PO ONE (08:45)
[2023-02-15] MEDS: PANTOPRAZOLE 40 MG/10 ML VIAL IV SCH (09:04)
[2023-02-15] MEDS: ATORVASTATIN 10 MG TAB PO SCH (09:05)
[2023-02-15] MEDS: SODIUM BICARBONATE TAB 650 MG TAB PO SCH ×3 (09:05→21:16)
--- NOTE | 2023-02-15 11:30 | P.NPCON ---
History of Present Illness - Reason for Consult acute renal failure - History of Present Illness Patient is a 37-year-old male with history of type 1 diabetes for about 25 years who is admitted to the hospital with complaints of nausea and vomiting and increased weakness for the past 5-6 days. Patient denies any abdominal pain or diarrhea. Serum creatinine was 9.3 mg/dL yesterday and it is 9.7 today. Previous creatinine was 1.7 on 06/05/2022 and 1.2 on 05/16/2022. Patient admitted to use of Advil recently. He is maintained on lisinopril at home. Blood pressure has not been significantly low with low as blood pressure at 100/64. Patient states he has been voiding well. Ultrasound shows no evidence of hydronephrosis. Potassium was 6.0 today. CO2 is 16. Blood sugar was elevated at 429 on initial admission. Serum acetone was negative. Patient tested positive for influenza A. Review of Systems As per HPI Past Medical History Past Medical History: Diabetes Mellitus Additional Past Medical History / Comment(s): T1D History of Any Multi-Drug Resistant Organisms: None Reported Past Surgical History: Tonsillectomy Past Anesthesia/Blood Transfusion Reactions: No Reported Reaction Past Psychological History: No Psychological Hx Reported Smoking Status: Never smoker Past Alcohol Use History: Rare Past Drug Use History: None Reported - Past Family History Father Family Medical History: Myocardial Infarction ([place]) Additional Family Medical History / Comment(s): of a heart attack Medications and Allergies Home Medications Medication Instructions Recorded Confirmed Type Insulin Aspart [NovoLOG Flexpen] 3 units SQ TID-W/MEALS 05/16/22 02/14/23 History Insulin Glargine,Hum.rec.anlog 15 units SQ DAILY 05/16/22 02/14/23 History [Lantus Solostar Pen] Azithromycin [Zithromax] See Taper PO DIRECTED 02/14/23 02/14/23 History Glucagon Emergency Kit 1 mg SQ ONCE PRN 02/14/23 02/14/23 History Levothyroxine Sodium [Synthroid] 175 mcg PO DAILY 02/14/23 02/14/23 History Lisinopril (Unknown Strength) 1 dose PO DAILY 02/14/23 02/14/23 History Rosuvastatin Calcium 5 mg PO DAILY 02/14/23 02/14/23 History Allergies Allergy/AdvReac Type Severity Reaction Status Date / Time No Known Allergies Allergy Verified 02/14/23 12:31 Physical Exam Vitals: Vital Signs Temp Pulse Pulse Resp BP BP Pulse Ox 02/15/23 10:08 89 20 02/15/23 07:35 98.1 F 89 19 115/73 93 L 02/15/23 01:00 98.0 F 75 18 100/64 94 L 02/14/23 19:00 98.0 F 84 18 108/65 95 02/14/23 15:55 98.1 F 67 20 107/73 97 02/14/23 15:39 99.0 F 90 18 92/65 96 02/14/23 14:25 85 18 95/76 98 02/14/23 12:29 98.6 F 73 20 110/66 99 Intake and Output 02/14/23 02/15/23 02/15/23 22:59 06:59 14:59 Intake Total 500 1560 Output Total 90 600 Balance 410 960 Intake: Intake, IV Titration 500 1560 Amount Lactated Ringers 1,000 ml 500 1560 @ 130 mls/hr IV .Q7H42M [facility] Rx#:[id number] Output: Urine 90 600 Other: Voiding Method Urinal Urinal # Voids 1 1 Weight 73.936 kg Patient is awake, comfortable, no acute distress Alert oriented 3 Examination of the heart S1 and S2 Examination of the lungs bilateral breath sounds are heard Abdomen is soft nontender Examination of lower extremity shows no significant edema 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 Acute kidney injury ATN currently nonoliguric. UA is fairly benign with 1+ protein small blood and no WBCs or RBCs. Ultrasound shows no evidence of obstruction. Patient will be started on IV fluids. 2. Hyperkalemia associated with acute kidney injury metabolic acidosis and use of JOON inhibitor as prior to admission along with NSAIDs. 3. Anion gap metabolic acidosis secondary to acute kidney injury. No DKA noted. 4. Hyponatremia, hypovolemic and associated with acute kidney injury. 5. Hyperphosphatemia associated with acute kidney injury 6. Chronic kidney disease NKF stage IIIa with previous creatinine as low as 1.2 in April 2022. UA shows 1+ proteins suggesting underlying diabetic kidney disease. 7. Nausea and vomiting possibly related to uremia versus influenza infection 8. Influenza A infection Plan: Aggressive IV hydration Repeat labs in a.m. If renal function is not improved patient will be dialyzed. Patient is agreeable. No asterixis noted. Continue off of JOON inhibitor's Continue to avoid NSAIDs Add PhosLo Check 25 hydroxy vitamin D Avoid any other nephrotoxic agents. Repeat labs this evening next Thank you for the consultation. We will continue to follow the patient with you during his hospitalization
[2023-02-15 11:39] LABS: Glucose,Whole Blood 518 mg/dL (70-110)
[2023-02-15] MEDS ORDERED: DEXTROSE 50% SYRINGE 50 ML IVP PRN ×2 (11:52)
[2023-02-15] MEDS: INSULIN ASPART (NovoLOG) 100 UNIT/ML VIAL SQ SCH ×3 (12:27→21:16)
[2023-02-15] MEDS: CALCIUM ACETATE 667 MG TAB PO SCH ×2 (12:30→17:13)
[2023-02-15] MEDS: DEXTROSE 5% IN WATER 1,000 ML with SODIUM BICARB (1 MEQ/ML) 150 ML IV SCH ×2 (14:09→17:13)
--- NOTE | 2023-02-15 14:14 | P.PN ---
Subjective Progress Note Date: 02/15/23 Hospital Course: 37-year-old male with history of hypertension, dyslipidemia, type 1 diabetes, hypothyroidism presenting with nausea and vomiting. In the ED, temperature was 98.6, respiratory rate 73, blood pressure 110/66, saturating at 99% on room air. WBC 5.6, hemoglobin 11.8, platelet 149, sodium 1:30, chloride 93, bicarbonate 15, creatinine 9.35, BUN 95, blood sugars 429, urinalysis shows 4+ glucose, negative nitrites and leukocyte esterase, acetone negative, influenza A posit emre. Chest x-ray independently interpreted, no significant opacities noted. Patient being admitted for acute kidney injury and influenza infection. Nephrology has been consulted. On IV fluids. Subjective: Patient is seen and examined at bedside. No acute events overnight. Patient feeling nauseous, and slightly lethargic. Pertinent positives and negatives as discussed above, a complete review of systems was performed and all other systems are negative. Vitals Signs Reviewed. General: nontoxic, no distress, appears at stated age Derm: warm, dry Head: atraumatic, normocephalic, symmetric Eyes: EOMI, no lid lag, anicteric sclera Mouth: no lip lesion, mucus membranes moist Cardiovascular: S1S2 reg, no murmur Lungs: CTA bilateral, no rhonchi, no rales , no accessory muscle use Abdominal: soft, nontender to palpation, no guarding, no appreciable organomegaly Ext: no gross muscle atrophy, no edema, no contractures Neuro: CN II-XI grossly intact, no focal neuro deficits Psych: Alert, oriented, appropriate affect Data Reviewed Today: Pertinent Labs: Hemoglobin 10.3, WBC 4.7, platelet 142, sodium 128, potassium 6.0, bicarb 16, anion gap 14, BUN 85, creatinine 9.7, blood sugars range between 83-328, phosphorus 6.1, calcium 7.1, magnesium 2.6 Imaging: Renal ultrasound showed no hydronephrosis Assessment and Plan: Patient is critically ill. May need dialysis. Severe acute kidney injury Metabolic acidosis, high anion gap Nausea and vomitting 2/2 uremia Severe dehydration Nausea and vomiting Hypovolemic hyponatremia Hyperkalemia Hypocalcemia Acute influenza infection -Nephro note reviewed, on sodium bicarb 150 cc/hr, started on phoslo -Repeat BMP this afternoon -Zofran 4 mg IV every 8 hours as needed -calcium gluconate 2g given -loklma and oral bicarb 650 PO TID given -Due to creatinine clearance less than 10, Tamiflu discontinued -Currently on room air -Hold lisinopril Type 1 diabetes with hyperglycemia -Continue Lantus 15 units daily, sliding scale insulin, monitor for hypoglycemia -Ketone negative Chronic: Dyslipidemia Hypothyroidism DVT ppx: heparin sq Code status: Anticipated discharge place: pending clinical course Anticipated discharge time: pending clinical course Objective - Vital Signs Vital signs: Vital Signs Temp 98.1 F 02/15/23 07:35 Pulse 89 02/15/23 10:08 Resp 20 02/15/23 10:08 BP 115/73 02/15/23 07:35 Pulse Ox 93 L 02/15/23 07:35 FiO2 Intake & Output 02/14/23 02/15/23 02/15/23 18:59 06:59 18:59 Intake Total 500 1560 Output Total 690 Balance 500 870 Weight 73.936 kg Intake: Intake, IV Titration 500 1560 Amount Lactated Ringers 1,000 ml 500 1560 @ 130 mls/hr IV .Q7H42M [facility] Rx#:[id number] Output: Urine 690 Other: Voiding Method Urinal Urinal # Voids 1 - Labs CBC & Chem 7: 02/15/23 04:37 02/15/23 04:37 Labs: Abnormal Lab Results - Last 24 Hours (Table) 02/14/23 02/14/23 02/14/23 Range/Units 13:07 13:07 14:24 RBC (4.30-5.90) m/uL Hgb (13.0-17.5) gm/dL Hct (39.0-53.0) % Plt Count (150-450) k/uL Sodium 130 L (137-145) mmol/L Potassium (3.5-5.1) mmol/L Chloride 93 L (98-107) mmol/L Carbon Dioxide 15 L (22-30) mmol/L BUN 95 H (9-20) mg/dL Creatinine 9.35 H* (0.66-1.25) mg/dL Glucose 395 H (74-99) mg/dL POC Glucose (mg/dL) 234 H (70-110) mg/dL Calcium 7.8 L (8.4-10.2) mg/dL Phosphorus (2.5-4.5) mg/dL Magnesium (1.6-2.3) mg/dL ALT 53 H (4-49) U/L Total Protein (6.3-8.2) g/dL Albumin (3.5-5.0) g/dL Influenza Type A (PCR) Detected A (Not Detectd) 02/15/23 02/15/23 02/15/23 Range/Units 04:37 04:37 05:08 RBC 3.43 L (4.30-5.90) m/uL Hgb 10.3 L (13.0-17.5) gm/dL Hct 31.0 L (39.0-53.0) % Plt Count 142 L (150-450) k/uL Sodium 128 L (137-145) mmol/L Potassium 6.0 H (3.5-5.1) mmol/L Chloride (98-107) mmol/L Carbon Dioxide 16 L (22-30) mmol/L BUN 85 H (9-20) mg/dL Creatinine 9.70 H* (0.66-1.25) mg/dL Glucose 328 H (74-99) mg/dL POC Glucose (mg/dL) 366 H (70-110) mg/dL Calcium 7.1 L (8.4-10.2) mg/dL Phosphorus 6.1 H (2.5-4.5) mg/dL Magnesium 2.6 H (1.6-2.3) mg/dL ALT (4-49) U/L Total Protein 5.8 L (6.3-8.2) g/dL Albumin 3.1 L (3.5-5.0) g/dL Influenza Type A (PCR) (Not Detectd) 02/15/23 Range/Units 11:37 RBC (4.30-5.90) m/uL Hgb (13.0-17.5) gm/dL Hct (39.0-53.0) % Plt Count (150-450) k/uL Sodium (137-145) mmol/L Potassium (3.5-5.1) mmol/L Chloride (98-107) mmol/L Carbon Dioxide (22-30) mmol/L BUN (9-20) mg/dL Creatinine (0.66-1.25) mg/dL Glucose (74-99) mg/dL POC Glucose (mg/dL) 518 H (70-110) mg/dL Calcium (8.4-10.2) mg/dL Phosphorus (2.5-4.5) mg/dL Magnesium (1.6-2.3) mg/dL ALT (4-49) U/L Total Protein (6.3-8.2) g/dL Albumin (3.5-5.0) g/dL Influenza Type A (PCR) (Not Detectd)
[2023-02-15 14:19] LABS: Glucose,Whole Blood 337 mg/dL (70-110)
[2023-02-15 16:56] LABS: African American GFR (CKD) 7 (>60 ml/min/1.73 sqM); Anion Gap 17 mmol/L; Blood Urea Nitrogen 88 mg/dL (9-20); Calcium 7.9 mg/dL (8.4-10.2); Carbon Dioxide 18 mmol/L (22-30); Chloride 98 mmol/L (98-107); Glucose 315 mg/dL (74-99); Non-African American GFR(CKD) 6 (>60 ml/min/1.73 sqM); Potassium 5.2 mmol/L (3.5-5.1); Sodium 133 mmol/L (137-145)
[2023-02-15 17:10] LABS: Glucose,Whole Blood 286 mg/dL (70-110)
[2023-02-15 20:25] LABS: Glucose,Whole Blood 168 mg/dL (70-110)
[2023-02-16] MEDS: DEXTROSE 5% IN WATER 1,000 ML with SODIUM BICARB (1 MEQ/ML) 150 ML IV SCH ×4 (01:21→23:42)
[2023-02-16 05:54] LABS: Glucose,Whole Blood 213 mg/dL (70-110)
[2023-02-16] MEDS: CALCIUM ACETATE 667 MG TAB PO SCH ×3 (07:03→17:59)
[2023-02-16] MEDS: INSULIN DETEMIR (LEVEMIR) 100 UNIT/ML SYR SQ SCH (07:03)
[2023-02-16] MEDS: LEVOTHYROXINE 88 MCG TAB PO SCH (07:03)
[2023-02-16] MEDS: INSULIN ASPART (NovoLOG) 100 UNIT/ML VIAL SQ SCH ×4 (07:03→21:36)
[2023-02-16] MEDS: SODIUM BICARBONATE TAB 650 MG TAB PO SCH ×3 (08:10→22:06)
[2023-02-16] MEDS: PANTOPRAZOLE 40 MG/10 ML VIAL IV SCH (08:10)
[2023-02-16] MEDS: ATORVASTATIN 10 MG TAB PO SCH (08:10)
[2023-02-16 09:00] LABS: Basophils # (A) 0.03 X 10*3/uL (0.00-0.10); Basophils % (A) 0.5 %; Eosinophils # (A) 0.08 X 10*3/uL (0.04-0.35); Eosinophils % (A) 1.3 %; HCT 29.4 % (39.6-50.0); Lymphocytes # (A) 1.83 X 10*3/uL (0.90-5.00); Lymphocytes % (A) 29.8 %; MCH 29.2 pg (27.0-32.0); MCV 85.7 FL (80.0-97.0); Mean Platelet Volume 11.7 FL (9.5-12.2); Monocytes # (A) 0.39 X 10*3/uL (0.20-1.00); Monocytes % (A) 6.4 %; NRBC Per 100 WBC 0 X 10*3/uL (0.00-0.01); Neutrophils # (A) 3.78 X 10*3/uL (1.80-7.70); Neutrophils % (A) 61.5 %; Platelet Count 166 X 10*3/uL (140-440); RBC 3.43 X 10*6/uL (4.40-5.60); RDW 13.9 % (11.5-14.5); WBC 6.14 X 10*3/uL (4.50-10.00)
--- NOTE | 2023-02-16 11:23 | P.PN ---
Subjective Patient is seen for follow-up for acute kidney injury. He was admitted to the hospital with complaints of nausea and increased weakness. Patient tested positive for influenza A. Serum creatinine was significantly elevated at 9.3 and increased to 10.1 yesterday. Previous creatinine 1.2 on 05/16/2022 and 1.7 on 06/05/2022. Patient continues to have nausea. He has had good urine output. 24 hour output documented at 2 L. Discussed renal replacement therapy and patient is agreeable to start dialysis. Hopefully this will be temporary as he has good urine output and we will continue to monitor for recovery of renal function. Objective - Vital Signs Vital signs: Vital Signs Temp 98.9 F 02/16/23 07:39 Pulse 80 02/16/23 07:39 Resp 20 02/16/23 07:39 BP 123/81 02/16/23 07:39 Pulse Ox 94 L 02/16/23 07:39 FiO2 Intake & Output 02/15/23 02/16/23 02/16/23 18:59 06:59 18:59 Intake Total 1800 Output Total 1800 800 Balance -1800 1000 Intake: Intake, IV Titration 1800 Amount Dextrose 5% in Water 1, 1800 000 ml @ 150 mls/hr IV . 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 No asterixis - Labs CBC & Chem 7: 02/16/23 04:26 02/15/23 15:59 Labs: Abnormal Lab Results - Last 24 Hours (Table) 02/15/23 02/15/23 02/15/23 Range/Units 04:37 11:37 14:17 RBC (4.40-5.60) X 10*6/uL Hgb (13.0-17.0) g/dL Hct (39.6-50.0) % Sodium (137-145) mmol/L Potassium (3.5-5.1) mmol/L Carbon Dioxide (22-30) mmol/L BUN (9-20) mg/dL Creatinine (0.66-1.25) mg/dL Glucose (74-99) mg/dL POC Glucose (mg/dL) 518 H 337 H (70-110) mg/dL Hemoglobin A1c (<=6.0) % Calcium (8.4-10.2) mg/dL Magnesium (1.5-2.4) mg/dL Vitamin D 25-Hydroxy 13.5 L (30.0-100.0) ng/mL 02/15/23 02/15/23 02/15/23 Range/Units 15:59 17:09 20:24 RBC (4.40-5.60) X 10*6/uL Hgb (13.0-17.0) g/dL Hct (39.6-50.0) % Sodium 133 L (137-145) mmol/L Potassium 5.2 H (3.5-5.1) mmol/L Carbon Dioxide 18 L (22-30) mmol/L BUN 88 H (9-20) mg/dL Creatinine 10.14 H* (0.66-1.25) mg/dL Glucose 315 H (74-99) mg/dL POC Glucose (mg/dL) 286 H 168 H (70-110) mg/dL Hemoglobin A1c (<=6.0) % Calcium 7.9 L (8.4-10.2) mg/dL Magnesium (1.5-2.4) mg/dL Vitamin D 25-Hydroxy (30.0-100.0) ng/mL 02/16/23 02/16/23 02/16/23 Range/Units 04:26 04:26 04:26 RBC 3.43 L (4.40-5.60) X 10*6/uL Hgb 10.0 L (13.0-17.0) g/dL Hct 29.4 L (39.6-50.0) % Sodium (137-145) mmol/L Potassium (3.5-5.1) mmol/L Carbon Dioxide (22-30) mmol/L BUN (9-20) mg/dL Creatinine (0.66-1.25) mg/dL Glucose (74-99) mg/dL POC Glucose (mg/dL) (70-110) mg/dL Hemoglobin A1c 9.6 H (<=6.0) % Calcium (8.4-10.2) mg/dL Magnesium 2.6 H (1.5-2.4) mg/dL Vitamin D 25-Hydroxy (30.0-100.0) ng/mL 02/16/23 Range/Units 05:53 RBC (4.40-5.60) X 10*6/uL Hgb (13.0-17.0) g/dL Hct (39.6-50.0) % Sodium (137-145) mmol/L Potassium (3.5-5.1) mmol/L Carbon Dioxide (22-30) mmol/L BUN (9-20) mg/dL Creatinine (0.66-1.25) mg/dL Glucose (74-99) mg/dL POC Glucose (mg/dL) 213 H (70-110) mg/dL Hemoglobin A1c (<=6.0) % Calcium (8.4-10.2) mg/dL Magnesium (1.5-2.4) mg/dL Vitamin D 25-Hydroxy (30.0-100.0) ng/mL Assessment and Plan Assessment: 1. Acute kidney injury ATN currently nonoliguric. UA is fairly benign with 1+ protein small blood and no WBCs or RBCs. Ultrasound shows no evidence of obstruction. Maintained on IV fluids with no significant improvement in renal function. We will proceed with renal replacement therapy as patient is symptomatic. 2. Hyperkalemia associated with acute kidney injury metabolic acidosis and use of JOON inhibitor as prior to admission along with NSAIDs. 3. Anion gap metabolic acidosis secondary to acute kidney injury. No DKA noted. 4. Hyponatremia, hypovolemic and associated with acute kidney injury. 5. Hyperphosphatemia associated with acute kidney injury 6. Chronic kidney disease NKF stage IIIa with previous creatinine as low as 1.2 in April 2022. UA shows 1+ proteins suggesting underlying diabetic kidney disease. 7. Nausea and vomiting possibly related to uremia versus influenza infection 8. Influenza A infection Plan: Proceed with starting renal replacement therapy. Consult vascular surgery and we will plan for first treatment today.
[2023-02-16 11:25] LABS: Glucose,Whole Blood 166 mg/dL (70-110)
--- NOTE | 2023-02-16 14:28 | P.GSCN ---
History of Present Illness History of present illness: 37-year-old white male patient came with nausea vomiting with acute chronic renal failure with high potassium and and creatinine creatinine is increasing 2 0.1 patient has history of diabetes no history of coronary disease Medical history history of diabetes chronic renal failure Neck is supple no bruit appreciated Chest is clear good and both lungs first second sound present Abdomen soft nontender Femorals are 1+ and graft plan is placement of a dialysis catheter risk and complication discussed Past Medical History Past Medical History: Diabetes Mellitus Additional Past Medical History / Comment(s): T1D History of Any Multi-Drug Resistant Organisms: None Reported Past Surgical History: Tonsillectomy Past Anesthesia/Blood Transfusion Reactions: No Reported Reaction Past Psychological History: No Psychological Hx Reported Smoking Status: Never smoker Past Alcohol Use History: Rare Past Drug Use History: None Reported - Past Family History Father Family Medical History: Myocardial Infarction ([place]) Additional Family Medical History / Comment(s): of a heart attack Medications and Allergies Home Medications Medication Instructions Recorded Confirmed Type Insulin Aspart [NovoLOG Flexpen] 3 units SQ TID-W/MEALS 05/16/22 02/14/23 History Insulin Glargine,Hum.rec.anlog 15 units SQ DAILY 05/16/22 02/14/23 History [Lantus Solostar Pen] Azithromycin [Zithromax] See Taper PO DIRECTED 02/14/23 02/14/23 History Glucagon Emergency Kit 1 mg SQ ONCE PRN 02/14/23 02/14/23 History Levothyroxine Sodium [Synthroid] 175 mcg PO DAILY 02/14/23 02/14/23 History Rosuvastatin Calcium 5 mg PO DAILY 02/14/23 02/14/23 History lisinopriL [Zestril] 5 mg PO DAILY 02/16/23 02/16/23 History Allergies Allergy/AdvReac Type Severity Reaction Status Date / Time No Known Allergies Allergy Verified 02/14/23 12:31 Surgical - Exam Vital Signs Temp Pulse Resp BP Pulse Ox 98.6 F 73 20 110/66 99 02/14/23 12:29 02/14/23 12:29 02/14/23 12:29 02/14/23 12:29 02/14/23 12:29 Results - Labs 02/16/23 04:26 02/15/23 15:59 Abnormal Lab Results - Last 24 Hours (Table) 02/15/23 02/15/23 02/15/23 Range/Units 04:37 14:17 15:59 RBC (4.40-5.60) X 10*6/uL Hgb (13.0-17.0) g/dL Hct (39.6-50.0) % Sodium 133 L (137-145) mmol/L Potassium 5.2 H (3.5-5.1) mmol/L Carbon Dioxide 18 L (22-30) mmol/L BUN 88 H (9-20) mg/dL Creatinine 10.14 H* (0.66-1.25) mg/dL Glucose 315 H (74-99) mg/dL POC Glucose (mg/dL) 337 H (70-110) mg/dL Hemoglobin A1c (<=6.0) % Calcium 7.9 L (8.4-10.2) mg/dL Magnesium (1.5-2.4) mg/dL Vitamin D 25-Hydroxy 13.5 L (30.0-100.0) ng/mL 02/15/23 02/15/23 02/16/23 Range/Units 17:09 20:24 04:26 RBC (4.40-5.60) X 10*6/uL Hgb (13.0-17.0) g/dL Hct (39.6-50.0) % Sodium (137-145) mmol/L Potassium (3.5-5.1) mmol/L Carbon Dioxide (22-30) mmol/L BUN (9-20) mg/dL Creatinine (0.66-1.25) mg/dL Glucose (74-99) mg/dL POC Glucose (mg/dL) 286 H 168 H (70-110) mg/dL Hemoglobin A1c 9.6 H (<=6.0) % Calcium (8.4-10.2) mg/dL Magnesium (1.5-2.4) mg/dL Vitamin D 25-Hydroxy (30.0-100.0) ng/mL 02/16/23 02/16/23 02/16/23 Range/Units 04:26 04:26 05:53 RBC 3.43 L (4.40-5.60) X 10*6/uL Hgb 10.0 L (13.0-17.0) g/dL Hct 29.4 L (39.6-50.0) % Sodium (137-145) mmol/L Potassium (3.5-5.1) mmol/L Carbon Dioxide (22-30) mmol/L BUN (9-20) mg/dL Creatinine (0.66-1.25) mg/dL Glucose (74-99) mg/dL POC Glucose (mg/dL) 213 H (70-110) mg/dL Hemoglobin A1c (<=6.0) % Calcium (8.4-10.2) mg/dL Magnesium 2.6 H (1.5-2.4) mg/dL Vitamin D 25-Hydroxy (30.0-100.0) ng/mL 02/16/23 Range/Units 11:24 RBC (4.40-5.60) X 10*6/uL Hgb (13.0-17.0) g/dL Hct (39.6-50.0) % Sodium (137-145) mmol/L Potassium (3.5-5.1) mmol/L Carbon Dioxide (22-30) mmol/L BUN (9-20) mg/dL Creatinine (0.66-1.25) mg/dL Glucose (74-99) mg/dL POC Glucose (mg/dL) 166 H (70-110) mg/dL Hemoglobin A1c (<=6.0) % Calcium (8.4-10.2) mg/dL Magnesium (1.5-2.4) mg/dL Vitamin D 25-Hydroxy (30.0-100.0) ng/mL Diabetes panel 02/15/23 02/16/23 Range/Units 15:59 04:26 Sodium 133 L (137-145) mmol/L Potassium 5.2 H (3.5-5.1) mmol/L Chloride 98 (98-107) mmol/L Carbon Dioxide 18 L (22-30) mmol/L BUN 88 H (9-20) mg/dL Creatinine 10.14 H* (0.66-1.25) mg/dL Glucose 315 H (74-99) mg/dL Hemoglobin A1c 9.6 H (<=6.0) % Calcium 7.9 L (8.4-10.2) mg/dL Calcium panel 02/15/23 Range/Units 15:59 Calcium 7.9 L (8.4-10.2) mg/dL Pituitary panel 02/15/23 Range/Units 15:59 Sodium 133 L (137-145) mmol/L Potassium 5.2 H (3.5-5.1) mmol/L Chloride 98 (98-107) mmol/L Carbon Dioxide 18 L (22-30) mmol/L BUN 88 H (9-20) mg/dL Creatinine 10.14 H* (0.66-1.25) mg/dL Glucose 315 H (74-99) mg/dL Calcium 7.9 L (8.4-10.2) mg/dL Adrenal panel 02/15/23 Range/Units 15:59 Sodium 133 L (137-145) mmol/L Potassium 5.2 H (3.5-5.1) mmol/L Chloride 98 (98-107) mmol/L Carbon Dioxide 18 L (22-30) mmol/L BUN 88 H (9-20) mg/dL Creatinine 10.14 H* (0.66-1.25) mg/dL Glucose 315 H (74-99) mg/dL Calcium 7.9 L (8.4-10.2) mg/dL
[2023-02-16 15:27] LABS: ALT 25 U/L (10-49); AST 20 U/L (14-35); Albumin 3.2 g/dL (3.8-4.9); Albumin/Globulin Ratio 1.33 Ratio (1.60-3.17); Alkaline Phosphatase 56 U/L (41-126); BUN/Creat Ratio 8.22 Ratio (12.00-20.00); Blood Urea Nitrogen 81.4 mg/dL (9.0-27.0); Calcium 8.1 mg/dL (8.7-10.3); Carbon Dioxide 22.3 mmol/L (21.6-31.8); Chloride 96 mmol/L (96-109); Globulin 2.4 g/dL (1.6-3.3); Glucose 196 mg/dL (70-110); Potassium 4.5 mmol/L (3.5-5.5); Sodium 138 mmol/L (135-145); Total Bilirubin 0.3 mg/dL (0.3-1.2); Total Protein 5.6 g/dL (6.2-8.2)
[2023-02-16] MEDS ORDERED: SODIUM CHLORIDE 0.9% 250 ML IV ONE (16:19)
[2023-02-16] MEDS: LIDOCAINE 1% INJ 10MG/ML (20 ML MDV) SQ ONE ×2 (16:28→16:38)
[2023-02-16] MEDS ORDERED: MIDAZOLAM 2 MG/2 ML VIAL IVP ONE (16:28)
[2023-02-16] MEDS ORDERED: fentaNYL (PF) 50 MCG/ML 2 ML AMP IVP ONE (16:30)
--- NOTE | 2023-02-16 17:14 | P.PN ---
Subjective Progress Note Date: 02/16/23 (tamanna charting seen at 1130) Patient is a 29-year-old male with type 1 diabetes, dyslipidemia, hypertension, and hypothyroidism who initially presented to the ER with nausea and vomiting. Patient was ultimately found to be influenza A positive and had significant acute renal failure. Patient seen and examined at bedside. He is having some nausea and overall body aches. He has a slight cough. He denies any fever. We discussed the plan for dialysis today and he has no additional questions. Vital signs reviewed General: nontoxic, no distress, appears at stated age Cardiovascular: S1S2 reg, no murmur, positive posterior tibial pulse bilateral, Lungs: CTA bilateral, no rhonchi, no rales , no accessory muscle use Abdominal: soft, nontender to palpation, no guarding, no appreciable organomegaly Ext: no gross muscle atrophy, no edema b/l lower extremities, no contractures Neuro: CN II-XI grossly intact, no focal neuro deficits Psych: Alert, oriented, appropriate affect Assessment/Plan: Influenza A infection Acute kidney injury on chronic kidney disease stage IIIA High anion gap metabolic acidosis, hyperphosphatemia Nausea and vomiting secondary to uremia Severe dehydration Vitamin D deficiency - Neurology note reviewed. Plan is for hemodialysis today. Vascular surgery has been consulted for permacath placement. -Asymptomatic from influenza A infection. Continue with supportive care. -PhosLo 667 mg oral 3 times daily with meals -Sodium bicarb 650 mg oral daily with meals -Hold JOON inhibitor DM 1 -Hemoglobin A1c 9.6 -Given that patient will be starting dialysis will continue Levemir 15 units daily and sliding scale. We'll review blood sugars tomorrow and if they continue to be greater than 200 will make appropriate adjustments. Dyslipidemia-continue with statin Hypothyroidism -Continue with Synthroid 175 g daily Results: Hyponatremia Hyperkalemia Hypocalcemia Imaging: None new Data Review: Labs reviewed from today include CBC and basic metabolic profile which are remarkable for BUN 81, creatinine 9.9, magnesium 2.6. DVT prophylaxis:start heparin Anticipated discharge date: Pending Clinical Course Anticipated discharge place: Pending Clinical Course This dictation was prepared using [employer] voice recognition software. Though every attempt is made to correct errors during dictation some may still exist. Objective - Vital Signs Vital signs: Vital Signs Temp 98.6 F 02/16/23 12:50 Pulse 63 02/16/23 12:50 Resp 18 02/16/23 12:50 BP 102/65 02/16/23 12:50 Pulse Ox 92 L 02/16/23 12:50 FiO2 Intake & Output 02/15/23 02/16/23 02/16/23 18:59 06:59 18:59 Intake Total 1800 50 Output Total 1800 800 625 Balance -1800 1000 -575 Intake: IV 50 Intake, IV Titration 1800 Amount Dextrose 5% in Water 1, 1800 000 ml @ 150 mls/hr IV . Q7H40M FAVIAN with Sodium Bicarb (1 Meq/ml) 150 ml Rx#:[id number] Output: Urine 1200 800 625 Post Void Residual 600 Other: Voiding Method Urinal Urinal Urinal # Voids 1 - Labs CBC & Chem 7: 02/16/23 04:26 02/16/23 04:26 Labs: Abnormal Lab Results - Last 24 Hours (Table) 02/15/23 02/15/23 02/16/23 Range/Units 15:59 20:24 04:26 RBC (4.40-5.60) X 10*6/uL Hgb (13.0-17.0) g/dL Hct (39.6-50.0) % Sodium 133 L (137-145) mmol/L Potassium 5.2 H (3.5-5.1) mmol/L Carbon Dioxide 18 L (22-30) mmol/L Anion Gap (4.00-12.00) mmol/L BUN 88 H (9-20) mg/dL Creatinine 10.14 H* (0.66-1.25) mg/dL Est GFR (CKD-EPI) (>=60) BUN/Creatinine Ratio (12.00-20.00) Ratio Glucose 315 H (74-99) mg/dL POC Glucose (mg/dL) 168 H (70-110) mg/dL Hemoglobin A1c 9.6 H (<=6.0) % Calcium 7.9 L (8.4-10.2) mg/dL Magnesium (1.5-2.4) mg/dL Total Protein (6.2-8.2) g/dL Albumin (3.8-4.9) g/dL Albumin/Globulin Ratio (1.60-3.17) Ratio 02/16/23 02/16/23 02/16/23 Range/Units 04:26 04:26 04:26 RBC 3.43 L (4.40-5.60) X 10*6/uL Hgb 10.0 L (13.0-17.0) g/dL Hct 29.4 L (39.6-50.0) % Sodium (137-145) mmol/L Potassium (3.5-5.1) mmol/L Carbon Dioxide (22-30) mmol/L Anion Gap 19.70 H (4.00-12.00) mmol/L BUN 81.4 H (9-20) mg/dL Creatinine 9.9 A* (0.66-1.25) mg/dL Est GFR (CKD-EPI) 6 L (>=60) BUN/Creatinine Ratio 8.22 L (12.00-20.00) Ratio Glucose 196 H (74-99) mg/dL POC Glucose (mg/dL) (70-110) mg/dL Hemoglobin A1c (<=6.0) % Calcium 8.1 L (8.4-10.2) mg/dL Magnesium 2.6 H (1.5-2.4) mg/dL Total Protein 5.6 L (6.2-8.2) g/dL Albumin 3.2 L (3.8-4.9) g/dL Albumin/Globulin Ratio 1.33 L (1.60-3.17) Ratio 02/16/23 02/16/23 Range/Units 05:53 11:24 RBC (4.40-5.60) X 10*6/uL Hgb (13.0-17.0) g/dL Hct (39.6-50.0) % Sodium (137-145) mmol/L Potassium (3.5-5.1) mmol/L Carbon Dioxide (22-30) mmol/L Anion Gap (4.00-12.00) mmol/L BUN (9-20) mg/dL Creatinine (0.66-1.25) mg/dL Est GFR (CKD-EPI) (>=60) BUN/Creatinine Ratio (12.00-20.00) Ratio Glucose (74-99) mg/dL POC Glucose (mg/dL) 213 H 166 H (70-110) mg/dL Hemoglobin A1c (<=6.0) % Calcium (8.4-10.2) mg/dL Magnesium (1.5-2.4) mg/dL Total Protein (6.2-8.2) g/dL Albumin (3.8-4.9) g/dL Albumin/Globulin Ratio (1.60-3.17) Ratio
[2023-02-16 17:15] LABS: Glucose,Whole Blood 108 mg/dL (70-110)
--- NOTE | 2023-02-16 18:30 | XR ---
EXAMINATION TYPE: XR chest 1V confirm line [facility] DATE OF EXAM: 02/16/2023 COMPARISON: 02/14/2023 INDICATION: Right line placement TECHNIQUE: Single frontal view of the chest is obtained. FINDINGS: The heart size is normal. The pulmonary vasculature is normal. The lungs are clear. No pneumothorax is evident. Right double-lumen catheter has tips within the proximal right atrium. IMPRESSION: 1. No acute pulmonary process. 2. No pneumothorax post right-sided catheter placement, tips within the proximal right atrium.
[2023-02-16 20:30] LABS: Glucose,Whole Blood 117 mg/dL (70-110)
--- NOTE | 2023-02-16 22:35 | OP ---
OPERATIVE REPORT DATE OF SERVICE : PREOPERATIVE DIAGNOSIS: Acute on chronic renal failure. POSTOPERATIVE DIAGNOSIS: Acute on chronic renal failure. PROCEDURE PERFORMED: Ultrasound-guided 23 cm dialysis catheter placed through right jugular approach. DESCRIPTION OF PROCEDURE: The patient was brought to the clinical laboratory aides teacher. Right side of the neck and chest was prepped and drapes applied in a sterile manner. 1% lidocaine was infiltrated with IV sedation. Ultrasound-guided micropuncture introduced in right jugular vein, micropuncture guidewire was passed and 4-Moz[place]ican dilator on the top of the guidewire. Then we created a tunnel. Through the tunnel, we brought 23 cm dialysis catheter. Dilator was advanced on top of the guidewire, then we placed a sheath under fluoroscopic control on the top of the guidewire. Through the sheath, we introduced the dialysis catheter. Tip of the catheter in superior vena junction flushed with heparin saline and hep- locked, secured with 3-0 nylon. Dressing applied. The patient tolerated the procedure well. MMODL / IJN: [id number] /
[2023-02-16] MEDS: HEPARIN SODIUM,PORCINE 5,000 UNIT/ML 1 ML VIAL SQ SCH (23:42)
[2023-02-17 04:27] LABS: Hepatitis B Surface Antigen Nonreactive
[2023-02-17 04:38] LABS: HCT 32.7 % (39.0-53.0); MCHC 33.7 g/dL (31.0-37.0); MCV 89.1 fL (80.0-100.0); Mean Platelet Volume 9.7; Platelet Count 190 k/uL (150-450); RBC 3.67 m/uL (4.30-5.90); WBC 5.5 k/uL (3.8-10.6)
[2023-02-17 04:49] LABS: African American GFR (CKD) 11 (>60 ml/min/1.73 sqM); Anion Gap 8 mmol/L; Blood Urea Nitrogen 45 mg/dL (9-20); Calcium 7.9 mg/dL (8.4-10.2); Carbon Dioxide 32 mmol/L (22-30); Chloride 95 mmol/L (98-107); Glucose 209 mg/dL (74-99); Non-African American GFR(CKD) 9 (>60 ml/min/1.73 sqM); Potassium 4.4 mmol/L (3.5-5.1); Sodium 135 mmol/L (137-145)
[2023-02-17 04:50] LABS: Hepatitis B Surface AB- Quant 3.5 mIU/mL
[2023-02-17 06:36] LABS: Glucose,Whole Blood 235 mg/dL (70-110)
[2023-02-17] MEDS: CALCIUM ACETATE 667 MG TAB PO SCH ×3 (06:56→17:11)
[2023-02-17] MEDS: DEXTROSE 5% IN WATER 1,000 ML with SODIUM BICARB (1 MEQ/ML) 150 ML IV SCH (06:56)
[2023-02-17] MEDS: INSULIN ASPART (NovoLOG) 100 UNIT/ML VIAL SQ SCH ×4 (06:56→21:06)
[2023-02-17] MEDS: LEVOTHYROXINE 88 MCG TAB PO SCH (06:56)
[2023-02-17] MEDS: INSULIN DETEMIR (LEVEMIR) 100 UNIT/ML SYR SQ SCH (06:56)
[2023-02-17] MEDS: HEPARIN SODIUM,PORCINE 5,000 UNIT/ML 1 ML VIAL SQ SCH ×3 (09:05→21:21)
[2023-02-17] MEDS: ATORVASTATIN 10 MG TAB PO SCH (09:05)
[2023-02-17] MEDS: ONDANSETRON 4 MG/2 ML VIAL IVP PRN ×2 (09:05→17:14)
[2023-02-17] MEDS: PANTOPRAZOLE 40 MG/10 ML VIAL IV SCH (09:05)
[2023-02-17] MEDS: SODIUM BICARBONATE TAB 650 MG TAB PO SCH (09:05)
--- NOTE | 2023-02-17 09:09 | IR ---
EXAMINATION TYPE: IR cvc insert central tunneled DATE OF EXAM: 02/16/2023 COMPARISON: NONE HISTORY: Fluoroscopy time. Fluoroscopy was provided to the referring clinician.
[2023-02-17 11:07] LABS: Glucose,Whole Blood 155 mg/dL (70-110)
--- NOTE | 2023-02-17 11:44 | P.PN ---
Subjective Patient is seen for follow-up for acute kidney injury. He was admitted to the hospital with complaints of nausea and increased weakness. Patient tested positive for influenza A. Serum creatinine was significantly elevated at 9.3 and increased to 10.1 . Previous creatinine 1.2 on 05/16/2022 and 1.7 on 06/05/2022. 24 hour output documented at 2 L. Started hemodialysis 02/16/2023. Patient tolerated his first treatment well. He is seen receiving hemodialysis currently. Patient states nausea has improved. No other complaints today. Objective - Vital Signs Vital signs: Vital Signs Temp 98.2 F 02/17/23 07:27 Pulse 73 02/17/23 07:27 Resp 18 02/17/23 07:27 BP 133/84 02/17/23 07:27 Pulse Ox 91 L 02/17/23 07:27 FiO2 Intake & Output 02/16/23 02/17/23 02/17/23 18:59 06:59 18:59 Intake Total 50 [id number] Output Total 1275 750 Balance -1225 316111 Intake: IV 50 Intake, IV Titration 090861 Amount Dextrose 5% in Water 1, 919272 000 ml @ 150 mls/hr IV . 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 exam grossly intact No asterixis - Labs CBC & Chem 7: 02/17/23 04:17 02/17/23 04:17 Labs: Abnormal Lab Results - Last 24 Hours (Table) 02/16/23 02/16/23 02/17/23 Range/Units 04:26 20:29 04:17 RBC 3.67 L (4.30-5.90) m/uL Hgb 11.0 L (13.0-17.5) gm/dL Hct 32.7 L (39.0-53.0) % Sodium (137-145) mmol/L Chloride (98-107) mmol/L Carbon Dioxide (22-30) mmol/L Anion Gap 19.70 H (4.00-12.00) mmol/L BUN 81.4 H (9.0-27.0) mg/dL Creatinine 9.9 A* (0.6-1.5) mg/dL Est GFR (CKD-EPI) 6 L (>=60) BUN/Creatinine Ratio 8.22 L (12.00-20.00) Ratio Glucose 196 H (70-110) mg/dL POC Glucose (mg/dL) 117 H (70-110) mg/dL Calcium 8.1 L (8.7-10.3) mg/dL Total Protein 5.6 L (6.2-8.2) g/dL Albumin 3.2 L (3.8-4.9) g/dL Albumin/Globulin Ratio 1.33 L (1.60-3.17) Ratio 02/17/23 02/17/23 02/17/23 Range/Units 04:17 06:34 11:05 RBC (4.30-5.90) m/uL Hgb (13.0-17.5) gm/dL Hct (39.0-53.0) % Sodium 135 L (137-145) mmol/L Chloride 95 L (98-107) mmol/L Carbon Dioxide 32 H (22-30) mmol/L Anion Gap (4.00-12.00) mmol/L BUN 45 H (9.0-27.0) mg/dL Creatinine 6.76 H (0.6-1.5) mg/dL Est GFR (CKD-EPI) (>=60) BUN/Creatinine Ratio (12.00-20.00) Ratio Glucose 209 H (70-110) mg/dL POC Glucose (mg/dL) 235 H 155 H (70-110) mg/dL Calcium 7.9 L (8.7-10.3) mg/dL Total Protein (6.2-8.2) g/dL Albumin (3.8-4.9) g/dL Albumin/Globulin Ratio (1.60-3.17) Ratio Assessment and Plan Assessment: 1. Acute kidney injury ATN currently nonoliguric. UA is fairly benign with 1+ protein small blood and no WBCs or RBCs. Ultrasound shows no evidence of obstruction. Maintained on IV fluids with no significant improvement in renal function. Started hemodialysis on 02/16/2023 due to symptoms of uremia and worsening renal function. Urine output at about 2 L. Currently maintained on IV fluids. 2. Hyperkalemia associated with acute kidney injury metabolic acidosis and use of JOON inhibitor as prior to admission along with NSAIDs. 3. Anion gap metabolic acidosis secondary to acute kidney injury. No DKA noted. 4. Hyponatremia, hypovolemic and associated with acute kidney injury. 5. Hyperphosphatemia associated with acute kidney injury 6. Chronic kidney disease NKF stage IIIa with previous creatinine as low as 1.2 in April 2022. UA shows 1+ proteins suggesting underlying diabetic kidney disease. 7. Nausea and vomiting possibly related to uremia versus influenza infection 8. Influenza A infection Plan: Repeat hemodialysis in a.m. DC bicarb drip Add normal saline at 70 mL an hour. Continue to avoid nephrotoxic agents.
[2023-02-17] MEDS: SODIUM CHLORIDE 0.9% 1,000 ML IV SCH (11:52)
--- NOTE | 2023-02-17 14:21 | P.PN ---
Subjective Progress Note Date: 02/17/23 (tamanna charting seen at 1015) Patient is a 37-year-old male with type 1 diabetes, dyslipidemia, hypertension, and hypothyroidism who initially presented to the ER with nausea and vomiting. Department he underwent an extensive evaluation. On arrival his vital signs were within normal limits. Laboratory analysis was remarkable for hemoglobin 11.8, sodium 130, bicarb 15, creatinine 9.35, BUN 95, and blood sugar of 429. Patient was ultimately found to be influenza A positive and had significant acute renal failure. Arrangements were made for admission. Patient was started on IV fluids and nephrology was consulted area despite aggressive fluid resuscitation the patient continued to have worsening renal function. Patient had a permacath placed on 02/16/23 and underwent his first round of hemodialysis. Patient seen and examined at bedside. He reports he is feeling okay. He continues to have an intermittent cough. No shortness of breath which was painful lightheadedness, dizziness, or nausea. He tolerated his first 2 rounds of dialysis with some fatigue but otherwise well. Vital signs reviewed General: nontoxic, no distress, appears at stated age Cardiovascular: S1S2 reg, no murmur, positive posterior tibial pulse bilateral, Lungs: CTA bilateral, no rhonchi, no rales , no accessory muscle use Abdominal: soft, nontender to palpation, no guarding, no appreciable organomegaly Ext: no gross muscle atrophy, no edema b/l lower extremities, no contractures Neuro: CN II-XI grossly intact, no focal neuro deficits Psych: Alert, oriented, appropriate affect Assessment/Plan: Influenza A infection Acute kidney injury on chronic kidney disease stage IIIA High anion gap metabolic acidosis, hyperphosphatemia Nausea and vomiting secondary to uremia Severe dehydration Vitamin D deficiency -Nephrology note reviewed: Repeat hemodialysis again on 02/18. Off bicarb drip. Add normal saline at 70 mL/h. Avoid nephrotoxic agents. -Asymptomatic from influenza A infection. Continue with supportive care. -PhosLo 667 mg oral 3 times daily with meals -Sodium bicarb 650 mg oral daily with meals -Hold JOON inhibitor DM 1 -Hemoglobin A1c 9.6 -Given that patient will be starting dialysis will Increase Levemir to 16 units daily and sliding scale. Continue to follow blood sugars. Dyslipidemia-continue with statin Hypothyroidism -Continue with Synthroid 175 g daily Results: Hyponatremia Hyperkalemia Hypocalcemia Imaging: None new Data Review: Labs reviewed from today include CBC and basic metabolic profile which are remarkable for hemoglobin 11 with sodium 135, BUN 45, creatinine 6.76, and blood sugar 209. DVT prophylaxis:start heparin Anticipated discharge date: Pending Clinical Course Anticipated discharge place: Pending Clinical Course This dictation was prepared using [employer] voice recognition software. Though every attempt is made to correct errors during dictation some may still exist. Objective - Vital Signs Vital signs: Vital Signs Temp 98.2 F 02/17/23 13:15 Pulse 65 02/17/23 13:15 Resp 19 02/17/23 13:15 BP 127/89 02/17/23 13:15 Pulse Ox 91 L 02/17/23 07:27 FiO2 Intake & Output 02/16/23 02/17/23 02/17/23 18:59 06:59 18:59 Intake Total 50 672981 400 Output Total 1275 750 400 Balance -1225 392409 0 Intake: IV 50 Intake, IV Titration 061066 Amount Dextrose 5% in Water 1, 966090 000 ml @ 150 mls/hr IV . Q7H40M FAVIAN with Sodium Bicarb (1 Meq/ml) 150 ml Rx#:[id number] Hemodialysis 400 Output: Urine 1275 750 Hemodialysis 400 Other: Voiding Method Urinal Urinal # Voids 2 - Labs CBC & Chem 7: 02/17/23 04:17 02/17/23 04:17 Labs: Abnormal Lab Results - Last 24 Hours (Table) 02/16/23 02/16/23 02/17/23 Range/Units 04:26 20:29 04:17 RBC 3.67 L (4.30-5.90) m/uL Hgb 11.0 L (13.0-17.5) gm/dL Hct 32.7 L (39.0-53.0) % Sodium (137-145) mmol/L Chloride (98-107) mmol/L Carbon Dioxide (22-30) mmol/L Anion Gap 19.70 H (4.00-12.00) mmol/L BUN 81.4 H (9.0-27.0) mg/dL Creatinine 9.9 A* (0.6-1.5) mg/dL Est GFR (CKD-EPI) 6 L (>=60) BUN/Creatinine Ratio 8.22 L (12.00-20.00) Ratio Glucose 196 H (70-110) mg/dL POC Glucose (mg/dL) 117 H (70-110) mg/dL Calcium 8.1 L (8.7-10.3) mg/dL Total Protein 5.6 L (6.2-8.2) g/dL Albumin 3.2 L (3.8-4.9) g/dL Albumin/Globulin Ratio 1.33 L (1.60-3.17) Ratio 02/17/23 02/17/23 02/17/23 Range/Units 04:17 06:34 11:05 RBC (4.30-5.90) m/uL Hgb (13.0-17.5) gm/dL Hct (39.0-53.0) % Sodium 135 L (137-145) mmol/L Chloride 95 L (98-107) mmol/L Carbon Dioxide 32 H (22-30) mmol/L Anion Gap (4.00-12.00) mmol/L BUN 45 H (9.0-27.0) mg/dL Creatinine 6.76 H (0.6-1.5) mg/dL Est GFR (CKD-EPI) (>=60) BUN/Creatinine Ratio (12.00-20.00) Ratio Glucose 209 H (70-110) mg/dL POC Glucose (mg/dL) 235 H 155 H (70-110) mg/dL Calcium 7.9 L (8.7-10.3) mg/dL Total Protein (6.2-8.2) g/dL Albumin (3.8-4.9) g/dL Albumin/Globulin Ratio (1.60-3.17) Ratio
[2023-02-17 16:10] VITALS: BMI 29.8
[2023-02-17 16:35] LABS: Glucose,Whole Blood 70 mg/dL (70-110)
[2023-02-17] MEDS: CHOLECALCIFEROL 25 MCG (1000 IU) TABLET PO SCH (17:11)
[2023-02-17 21:12] LABS: Glucose,Whole Blood 94 mg/dL (70-110)
[2023-02-18] MEDS: SODIUM CHLORIDE 0.9% 1,000 ML IV SCH ×2 (00:41→09:08)
[2023-02-18] MEDS: ONDANSETRON 4 MG/2 ML VIAL IVP PRN (01:05)
[2023-02-18 06:20] LABS: Glucose,Whole Blood 117 mg/dL (70-110)
[2023-02-18] MEDS: INSULIN ASPART (NovoLOG) 100 UNIT/ML VIAL SQ SCH ×4 (06:25→22:15)
[2023-02-18] MEDS: CALCIUM ACETATE 667 MG TAB PO SCH ×3 (06:35→17:42)
[2023-02-18] MEDS: LEVOTHYROXINE 88 MCG TAB PO SCH (06:35)
[2023-02-18] MEDS ORDERED: INSULIN DETEMIR (LEVEMIR) 100 UNIT/ML SYR SQ SCH (07:00)
[2023-02-18 09:20] LABS: HCT 31.8 % (39.6-50.0); HGB 10.4 g/dL (13.0-17.0); MCH 29.5 pg (27.0-32.0); MCHC 32.7 g/dL (32.0-37.0); MCV 90.1 FL (80.0-97.0); Mean Platelet Volume 12.5 FL (9.5-12.2); NRBC Per 100 WBC 0 X 10*3/uL (0.00-0.01); Platelet Count 229 X 10*3/uL (140-440); RBC 3.53 X 10*6/uL (4.40-5.60); RDW 13.6 % (11.5-14.5); WBC 5.98 X 10*3/uL (4.50-10.00)
[2023-02-18 09:22] LABS: BUN/Creat Ratio 4.06 Ratio (12.00-20.00); Blood Urea Nitrogen 21.5 mg/dL (9.0-27.0); Calcium 8.2 mg/dL (8.7-10.3); Chloride 102 mmol/L (96-109); Glucose 96 mg/dL (70-110); Potassium 4.4 mmol/L (3.5-5.5); Sodium 141 mmol/L (135-145)
[2023-02-18 10:59] LABS: Glucose,Whole Blood 177 mg/dL (70-110)
[2023-02-18] MEDS: ATORVASTATIN 10 MG TAB PO SCH (12:16)
[2023-02-18] MEDS: CHOLECALCIFEROL 25 MCG (1000 IU) TABLET PO SCH (12:16)
[2023-02-18] MEDS: HEPARIN SODIUM,PORCINE 5,000 UNIT/ML 1 ML VIAL SQ SCH ×3 (12:18→22:16)
[2023-02-18] MEDS: METOCLOPRAMIDE 5 MG/ML 2 ML VIAL IVP SCH ×2 (12:18→18:37)
[2023-02-18] MEDS: PANTOPRAZOLE 40 MG/10 ML VIAL IV SCH (12:18)
--- NOTE | 2023-02-18 12:39 | P.PN ---
Subjective Patient is seen for follow-up for acute kidney injury. He was admitted to the hospital with complaints of nausea and increased weakness. Patient tested positive for influenza A. Serum creatinine was significantly elevated at 9.3 and increased to 10.1 . Previous creatinine 1.2 on 05/16/2022 and 1.7 on 06/05/2022. Started hemodialysis 02/16/2023. Receiving third treatment today. Patient is seen on hemodialysis. Tolerating his treatment well. Patient states nausea persists. Possible underlying diabetic gastroparesis. is present at bedside. Urine output at 2.3 L for 24 hours. Objective - Vital Signs Vital signs: Vital Signs Temp 97.6 F 02/18/23 12:27 Pulse 68 02/18/23 12:27 Resp 18 02/18/23 12:27 BP 148/94 02/18/23 12:27 Pulse Ox 96 02/18/23 07:21 FiO2 Intake & Output 02/17/23 02/18/23 02/18/23 18:59 06:59 18:59 Intake Total 400 900 Output Total 1600 1150 900 Balance -1200 -1150 0 Weight 73.936 kg Intake: Hemodialysis 400 900 Output: Urine 1200 1150 Hemodialysis 400 900 Other: Voiding Method Urinal - Exam Patient is awake, comfortable, no acute distress Examination of the heart S1 and S2 Examination of the lungs bilateral breath sounds are heard Abdomen is soft nontender Examination of lower extremities shows no significant edema 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 No asterixis - Labs CBC & Chem 7: 02/18/23 04:24 02/18/23 04:24 Labs: Abnormal Lab Results - Last 24 Hours (Table) 02/18/23 02/18/23 02/18/23 Range/Units 04:24 04:24 06:19 RBC 3.53 L (4.40-5.60) X 10*6/uL Hgb 10.4 L (13.0-17.0) g/dL Hct 31.8 L (39.6-50.0) % MPV 12.5 H (9.5-12.2) FL Creatinine 5.3 H (0.6-1.5) mg/dL Est GFR (CKD-EPI) 13 L (>=60) BUN/Creatinine Ratio 4.06 L (12.00-20.00) Ratio POC Glucose (mg/dL) 117 H (70-110) mg/dL Calcium 8.2 L (8.7-10.3) mg/dL 02/18/23 Range/Units 10:57 RBC (4.40-5.60) X 10*6/uL Hgb (13.0-17.0) g/dL Hct (39.6-50.0) % MPV (9.5-12.2) FL Creatinine (0.6-1.5) mg/dL Est GFR (CKD-EPI) (>=60) BUN/Creatinine Ratio (12.00-20.00) Ratio POC Glucose (mg/dL) 177 H (70-110) mg/dL Calcium (8.7-10.3) mg/dL Assessment and Plan Assessment: 1. Acute kidney injury ATN currently nonoliguric. UA is fairly benign with 1+ protein small blood and no WBCs or RBCs. Ultrasound shows no evidence of obstru ction. Maintained on IV fluids with no significant improvement in renal function. Started hemodialysis on 02/16/2023 due to symptoms of uremia and worsening renal function. Urine output at about 2 L. Currently maintained on IV fluids. 2. Hyperkalemia associated with acute kidney injury metabolic acidosis and use of JOON inhibitor as prior to admission along with NSAIDs. 3. Anion gap metabolic acidosis secondary to acute kidney injury. No DKA noted. 4. Hyponatremia, hypovolemic and associated with acute kidney injury. 5. Hyperphosphatemia associated with acute kidney injury 6. Chronic kidney disease NKF stage IIIa with previous creatinine as low as 1.2 in April 2022. UA shows 1+ proteins suggesting underlying diabetic kidney disease. 7. Nausea and vomiting possibly related to uremia versus influenza infection versus diabetic gastroparesis 8. Influenza A infection Plan: Hold hemodialysis in a.m. and monitor for recovery of renal function Continue IV fluids at 70 mL an hour. Continue to avoid nephrotoxic agents. repeat labs in a.m. Agree with Jerrod
[2023-02-18 14:39] LABS: Glucose,Whole Blood 391 mg/dL (70-110)
--- NOTE | 2023-02-18 15:28 | P.PN ---
Subjective Progress Note Date: 02/18/23 (delayed charting seen at 1030) Patient is a 37-year-old male with type 1 diabetes, dyslipidemia, hypertension, and hypothyroidism who initially presented to the ER with nausea and vomiting. Department he underwent an extensive evaluation. On arrival his vital signs were within normal limits. Laboratory analysis was remarkable for hemoglobin 11.8, sodium 130, bicarb 15, creatinine 9.35, BUN 95, and blood sugar of 429. Patient was ultimately found to be influenza A positive and had significant acute renal failure. Arrangements were made for admission. Patient was started on IV fluids and nephrology was consulted area despite aggressive fluid resuscitation the patient continued to have worsening renal function. Patient had a permacath placed on 02/16/23 and underwent his first round of hemodialysis. Patient seen and examined at bedside. present at bedside. Updated on course of care. Patient is still having intermittent nausea and vomiting. No abdominal pain. Cough is better. No shortness of breath. N abdominal pain, no diarrhea, no constipation. Vital signs reviewed General: nontoxic, no distress, appears at stated age Cardiovascular: S1S2 reg, no murmur, positive posterior tibial pulse bilateral, Lungs: CTA bilateral, no rhonchi, no rales , no accessory muscle use Abdominal: soft, nontender to palpation, no guarding, no appreciable organomegaly Ext: no gross muscle atrophy, no edema b/l lower extremities, no contractures Neuro: CN II-XI grossly intact, no focal neuro deficits Psych: Alert, oriented, appropriate affect Assessment/Plan: Influenza A infection Acute kidney injury on chronic kidney disease stage IIIA Requiring dialysis High anion gap metabolic acidosis, hyperphosphatemia Nausea and vomiting- initially thought to be secondary to uremia and now concerns of diabetic gastroparesis Vitamin D deficiency -Case was discussed with Dr. Harp. He will undergo his third round of hemodia lysis today. He will then have a dialysis holiday as we reassess his renal function. -Asymptomatic from influenza A infection. Continue with supportive care. -PhosLo 667 mg oral 3 times daily with meals -Sodium bicarb 650 mg oral daily with meals -Hold JOON inhibitor - start regaln 5 mg IV TID DM 1 -Hemoglobin A1c 9.6 Blood sugars are slightly lower today with an a.m. fasting blood sugar of 96, 1045 blood sugar of 177. We'll continue to monitor and adjust insulin appropriately. Dyslipidemia-continue with statin Hypothyroidism -Continue with Synthroid 175 g daily Resolved: Hyponatremia Hyperkalemia Hypocalcemia Severe dehydration Imaging: None new Data Review: Labs reviewed included CBC and basic metabolic profile which are remarkable for hemoglobin 10.4 and creatinine 5.3. DVT prophylaxis:start heparin Anticipated discharge date: Pending Clinical Course Anticipated discharge place: Pending Clinical Course This dictation was prepared using [employer] voice recognition software. Though every attempt is made to correct errors during dictation some may still exist. Objective - Vital Signs Vital signs: Vital Signs Temp 98.9 F 02/18/23 14:32 Pulse 84 02/18/23 14:32 Resp 16 02/18/23 14:32 BP 115/75 02/18/23 14:32 Pulse Ox 97 02/18/23 14:32 FiO2 Intake & Output 02/17/23 02/18/23 02/18/23 18:59 06:59 18:59 Intake Total 400 900 Output Total 1600 1150 1300 Balance -1200 -1150 -400 Weight 73.936 kg Intake: Hemodialysis 400 900 Output: Urine 1200 1150 400 Hemodialysis 400 900 Other: Voiding Method Urinal - Labs CBC & Chem 7: 02/18/23 04:24 02/18/23 04:24 Labs: Abnormal Lab Results - Last 24 Hours (Table) 02/18/23 02/18/23 02/18/23 Range/Units 04:24 04:24 06:19 RBC 3.53 L (4.40-5.60) X 10*6/uL Hgb 10.4 L (13.0-17.0) g/dL Hct 31.8 L (39.6-50.0) % MPV 12.5 H (9.5-12.2) FL Creatinine 5.3 H (0.6-1.5) mg/dL Est GFR (CKD-EPI) 13 L (>=60) BUN/Creatinine Ratio 4.06 L (12.00-20.00) Ratio POC Glucose (mg/dL) 117 H (70-110) mg/dL Calcium 8.2 L (8.7-10.3) mg/dL 02/18/23 02/18/23 Range/Units 10:57 14:37 RBC (4.40-5.60) X 10*6/uL Hgb (13.0-17.0) g/dL Hct (39.6-50.0) % MPV (9.5-12.2) FL Creatinine (0.6-1.5) mg/dL Est GFR (CKD-EPI) (>=60) BUN/Creatinine Ratio (12.00-20.00) Ratio POC Glucose (mg/dL) 177 H 391 H (70-110) mg/dL Calcium (8.7-10.3) mg/dL
[2023-02-18] MEDS ORDERED: INSULIN DETEMIR (LEVEMIR) 100 UNIT/ML SYR SQ ONE (15:30)
[2023-02-18 16:30] LABS: Glucose,Whole Blood 415 mg/dL (70-110)
[2023-02-18 21:08] LABS: Glucose,Whole Blood 250 mg/dL (70-110)
[2023-02-19] MEDS: SODIUM CHLORIDE 0.9% 1,000 ML IV SCH ×2 (00:31→15:42)
[2023-02-19] MEDS: METOCLOPRAMIDE 5 MG/ML 2 ML VIAL IVP SCH ×3 (00:39→17:17)
[2023-02-19 05:26] LABS: Glucose,Whole Blood 293 mg/dL (70-110)
[2023-02-19] MEDS: INSULIN DETEMIR (LEVEMIR) 100 UNIT/ML SYR SQ SCH (06:06)
[2023-02-19] MEDS: LEVOTHYROXINE 88 MCG TAB PO SCH (06:07)
[2023-02-19] MEDS: INSULIN ASPART (NovoLOG) 100 UNIT/ML VIAL SQ SCH ×4 (06:07→21:45)
[2023-02-19] MEDS: CALCIUM ACETATE 667 MG TAB PO SCH ×3 (06:07→17:17)
[2023-02-19] MEDS: ATORVASTATIN 10 MG TAB PO SCH (10:01)
[2023-02-19] MEDS: HEPARIN SODIUM,PORCINE 5,000 UNIT/ML 1 ML VIAL SQ SCH ×2 (10:01→15:41)
[2023-02-19] MEDS: PANTOPRAZOLE 40 MG/10 ML VIAL IV SCH (10:01)
[2023-02-19] MEDS: CHOLECALCIFEROL 25 MCG (1000 IU) TABLET PO SCH (10:01)
[2023-02-19 11:08] LABS: Glucose,Whole Blood 364 mg/dL (70-110)
[2023-02-19 12:11] LABS: African American GFR (CKD) 18 (>60 ml/min/1.73 sqM); Anion Gap 15 mmol/L; Blood Urea Nitrogen 23 mg/dL (9-20); Carbon Dioxide 25 mmol/L (22-30); Chloride 95 mmol/L (98-107); Glucose 353 mg/dL (74-99); Non-African American GFR(CKD) 16 (>60 ml/min/1.73 sqM); Potassium 4.8 mmol/L (3.5-5.1); Sodium 135 mmol/L (137-145)
--- NOTE | 2023-02-19 14:16 | P.PN ---
Subjective Patient is seen for follow-up for acute kidney injury. He was admitted to the hospital with complaints of nausea and increased weakness. Patient tested positive for influenza A. Serum creatinine was significantly elevated at 9.3 and increased to 10.1 . Previous creatinine 1.2 on 05/16/2022 and 1.7 on 06/05/2022. Started hemodialysis 02/16/2023. Status post 3 consecutive treatments. Hemodialysis on hold today. Patient continues to have good urine output. 2.2 L started for 24 hours. Nausea has improved. Objective - Vital Signs Vital signs: Vital Signs Temp 99.6 F 02/19/23 12:27 Pulse 74 02/19/23 12:27 Resp 16 02/19/23 12:27 BP 129/80 02/19/23 12:27 Pulse Ox 96 02/19/23 12:27 FiO2 Intake & Output 02/18/23 02/19/23 02/19/23 18:59 06:59 18:59 Intake Total 900 Output Total 2775 400 Balance -1875 -400 Intake: Hemodialysis 900 Output: Urine 1875 400 Hemodialysis 900 Other: Voiding Method Urinal # Voids 2 - Exam Patient is awake, comfortable, no acute distress Examination of the heart S1 and S2 Examination of the lungs bilateral breath sounds are heard Abdomen is soft nontender Examination of lower extremities shows no significant edema NET WASHER exam grossly intact No asterixis - Labs CBC & Chem 7: 02/18/23 04:24 02/19/23 11:11 Labs: Abnormal Lab Results - Last 24 Hours (Table) 02/18/23 02/18/23 02/18/23 Range/Units 14:37 16:28 20:57 Sodium (137-145) mmol/L Chloride (98-107) mmol/L BUN (9-20) mg/dL Creatinine (0.66-1.25) mg/dL Glucose (74-99) mg/dL POC Glucose (mg/dL) 391 H 415 H 250 H (70-110) mg/dL Calcium (8.4-10.2) mg/dL 02/19/23 02/19/23 02/19/23 Range/Units 05:24 11:06 11:11 Sodium 135 L (137-145) mmol/L Chloride 95 L (98-107) mmol/L BUN 23 H (9-20) mg/dL Creatinine 4.48 H (0.66-1.25) mg/dL Glucose 353 H (74-99) mg/dL POC Glucose (mg/dL) 293 H 364 H (70-110) mg/dL Calcium 8.0 L (8.4-10.2) mg/dL Assessment and Plan Assessment: 1. Acute kidney injury ATN currently nonoliguric. UA is fairly benign with 1+ protein small blood and no WBCs or RBCs. Ultrasound shows no evidence of obst ruction. Maintained on IV fluids with no significant improvement in renal function. Started hemodialysis on 02/16/2023 due to symptoms of uremia and worsening renal function. Urine output at about 2 L. Currently maintained on IV fluids. 2. Hyperkalemia associated with acute kidney injury metabolic acidosis and use of JOON inhibitor as prior to admission along with NSAIDs. 3. Anion gap metabolic acidosis secondary to acute kidney injury. No DKA noted. 4. Hyponatremia, hypovolemic and associated with acute kidney injury. 5. Hyperphosphatemia associated with acute kidney injury 6. Chronic kidney disease NKF stage IIIa with previous creatinine as low as 1.2 in April 2022. UA shows 1+ proteins suggesting underlying diabetic kidney disease. 7. Nausea and vomiting possibly related to uremia versus influenza infection versus diabetic gastroparesis 8. Influenza A infection Plan: Hold hemodialysis and monitor for recovery of renal function Continue IV fluids at 70 mL an hour. Continue to avoid nephrotoxic agents. repeat labs in a.m. Continue with Jerrod
[2023-02-19 16:13] LABS: Glucose,Whole Blood 364 mg/dL (70-110)
--- NOTE | 2023-02-19 19:22 | P.PN ---
Subjective Progress Note Date: 02/19/23 Hospital course: Patient is a 37-year-old male with type 1 diabetes, dyslipidemia, hypertension, and hypothyroidism who initially presented to the ER with nausea and vomiting. Department he underwent an extensive evaluation. On arrival his vital signs were within normal limits. Laboratory analysis was remarkable for hemoglobin 11.8, sodium 130, bicarb 15, creatinine 9.35, BUN 95, and blood sugar of 429. Patient was ultimately found to be influenza A positive and had significant acute renal failure. Arrangements were made for admission. Patient was started on IV fluids and nephrology was consulted area despite aggressive fluid resuscitation the patient continued to have worsening renal function. Patient had a permacath placed on 02/16/23 and underwent his first round of hemodialysis. Physical exam: Patient seen and examined at bedside with also at bedside visiting. Discussed importance of long acting insulin and improving blood glucose levels. Patient continues to refuse long-acting insulin. Patient has been educated on risks of continued uncontrolled blood glucose levels. Patient completed 3 day course of dialysis and plan is for dialysis holiday today and reassessing renal function tomorrow. General: non toxic, no distress, appears at stated age Derm: warm, dry Head: atraumatic, normocephalic, symmetric Eyes: EOMI, no lid lag, anicteric sclera Mouth: no lip lesion, mucus membranes moist Cardiovascular: S1S2 reg, no murmur, positive posterior tibial pulse bilateral, Lungs: CTA bilateral, no rhonchi, no rales , no accessory muscle use Abdominal: soft, nontender to palpation, no guarding, no appreciable organomegaly Ext: no gross muscle atrophy, no edema, no contractures Neuro: CN II-XI grossly intact, no focal neuro deficits Psych: Alert, oriented, appropriate affect Assessment and plan of care: Influenza A infection Acute kidney injury on chronic kidney disease stage IIIA Requiring dialysis High anion gap metabolic acidosis, hyperphosphatemia Nausea and vomiting- initially thought to be secondary to uremia and now concerns of diabetic gastroparesis Vitamin D deficiency -Case was discussed with Dr. Harp. Patient to have a dialysis holiday daily as we reassess his renal functionTomorrow. -Asymptomatic from influenza A infection. Continue with supportive care. -Continue PhosLo 667 mg oral 3 times daily with meals and Sodium bicarb 650 mg oral daily with meals -Hold JOON inhibitor -Continue Reglan 5 mg IV TID Type 1 diabetes mellitus with hyperglycemia, poorly controlled with hemoglobin A1c of 9.6%. -Hemoglobin A1c 9.6 -Blood glucose elevated at 353 this morning. Patient continuing to refuse long- acting insulin at this time. Again patient educated on importance of maintaining tighter glycemic control and risks of persistently uncontrolled hyperglycemia. Hyperlipidemia Continue daily medication regimen with atorvastatin 10 mg nightly. Hypothyroidism -Continue daily medication regimen with Synthroid 175 g daily Hyponatremia, resolved Hyperkalemia, resolved Hypocalcemia , resolved Severe dehydration, resolved Data and imaging reviewed: Labs completed and reviewed. BUN 23, creatinine 4.48, and GFR 16. Blood pressure 116/75, heart rate 75, respiratory rate 16, temp 98.1F, SpO2 of 96% on room air. DVT prophylaxis:start heparin Anticipated discharge date: Pending Clinical Course Anticipated discharge place: Pending Clinical Course Patient was seen independently by Nurse Pracitioner. This document was prepared using [employer] dictation software. Please allow for errors in manager agriculture, while rare they do occur. I reviewed the documentation as provided by the ENA above, who is the original author of this note. I agree with the documented assessment and plan, with the following changes: none Objective - Vital Signs Vital signs: Vital Signs Temp 98.1 F 02/19/23 07:20 Pulse 75 02/19/23 07:20 Resp 16 02/19/23 07:20 BP 116/75 02/19/23 07:20 Pulse Ox 96 02/19/23 07:20 FiO2 Intake & Output 02/18/23 02/19/23 02/19/23 18:59 06:59 18:59 Intake Total 900 Output Total 2775 400 Balance -1875 -400 Intake: Hemodialysis 900 Output: Urine 1875 400 Hemodialysis 900 Other: Voiding Method Urinal # Voids 2 - Labs CBC & Chem 7: 02/20/23 06:51 02/20/23 13:17 Labs: Abnormal Lab Results - Last 24 Hours (Table) 02/18/23 02/18/23 02/18/23 Range/Units 04:24 10:57 14:37 Creatinine 5.3 H (0.6-1.5) mg/dL Est GFR (CKD-EPI) 13 L (>=60) BUN/Creatinine Ratio 4.06 L (12.00-20.00) Ratio POC Glucose (mg/dL) 177 H 391 H (70-110) mg/dL Calcium 8.2 L (8.7-10.3) mg/dL 02/18/23 02/18/23 02/19/23 Range/Units 16:28 20:57 05:24 Creatinine (0.6-1.5) mg/dL Est GFR (CKD-EPI) (>=60) BUN/Creatinine Ratio (12.00-20.00) Ratio POC Glucose (mg/dL) 415 H 250 H 293 H (70-110) mg/dL Calcium (8.7-10.3) mg/dL
[2023-02-19 20:28] LABS: Glucose,Whole Blood 346 mg/dL (70-110)
[2023-02-20] MEDS: HEPARIN SODIUM,PORCINE 5,000 UNIT/ML 1 ML VIAL SQ SCH ×3 (01:39→17:43)
[2023-02-20] MEDS: METOCLOPRAMIDE 5 MG/ML 2 ML VIAL IVP SCH ×3 (01:39→17:30)
[2023-02-20 05:33] LABS: Glucose,Whole Blood 127 mg/dL (70-110)
[2023-02-20] MEDS: INSULIN ASPART (NovoLOG) 100 UNIT/ML VIAL SQ SCH ×4 (06:57→20:20)
[2023-02-20] MEDS: CALCIUM ACETATE 667 MG TAB PO SCH ×3 (07:00→17:43)
[2023-02-20] MEDS: INSULIN DETEMIR (LEVEMIR) 100 UNIT/ML SYR SQ SCH (07:00)
[2023-02-20] MEDS: LEVOTHYROXINE 88 MCG TAB PO SCH (07:00)
[2023-02-20 07:32] LABS: African American GFR (CKD) 15 (>60 ml/min/1.73 sqM); Anion Gap 11 mmol/L; Blood Urea Nitrogen 24 mg/dL (9-20); Calcium 8.2 mg/dL (8.4-10.2); Carbon Dioxide 25 mmol/L (22-30); Chloride 102 mmol/L (98-107); Glucose 176 mg/dL (74-99); Non-African American GFR(CKD) 13 (>60 ml/min/1.73 sqM); Potassium 4.7 mmol/L (3.5-5.1); Sodium 138 mmol/L (137-145)
[2023-02-20] MEDS: SODIUM CHLORIDE 0.9% 1,000 ML IV SCH ×2 (08:11→20:21)
[2023-02-20] MEDS: ATORVASTATIN 10 MG TAB PO SCH (10:00)
[2023-02-20] MEDS: CHOLECALCIFEROL 25 MCG (1000 IU) TABLET PO SCH (10:00)
[2023-02-20] MEDS: PANTOPRAZOLE 40 MG/10 ML VIAL IV SCH (10:18)
[2023-02-20 10:59] LABS: HCT 32.6 % (39.6-50.0); HGB 10.3 g/dL (13.0-17.0); MCH 29.3 pg (27.0-32.0); MCHC 31.6 g/dL (32.0-37.0); MCV 92.6 FL (80.0-97.0); Mean Platelet Volume 12.2 FL (9.5-12.2); NRBC Per 100 WBC 0 X 10*3/uL (0.00-0.01); Platelet Count 300 X 10*3/uL (140-440); RBC 3.52 X 10*6/uL (4.40-5.60); RDW 13.3 % (11.5-14.5)
[2023-02-20 12:12] LABS: Glucose,Whole Blood 211 mg/dL (70-110)
--- NOTE | 2023-02-20 12:40 | P.PN ---
Subjective Patient is seen for follow-up for acute kidney injury. He was admitted to the hospital with complaints of nausea and increased weakness. Patient tested positive for influenza A. Serum creatinine was significantly elevated at 9.3 and increased to 10.1 . Previous creatinine 1.2 on 05/16/2022 and 1.7 on 06/05/2022. Started hemodialysis 02/16/2023. Status post 3 consecutive treatments. Hemodialysis on hold to assess recovery of renal function. Patient continues to have good urine output. About 2 L for 24 hours. Nausea has improved. Serum creatinine at 5.2 today from or 0.4 yesterday. Objective - Vital Signs Vital signs: Vital Signs Temp 98.5 F 02/20/23 07:25 Pulse 68 02/20/23 07:25 Resp 18 02/20/23 07:25 BP 138/85 02/20/23 07:25 Pulse Ox 93 L 02/20/23 07:25 FiO2 Intake & Output 02/19/23 02/20/23 02/20/23 18:59 06:59 18:59 Output Total 1000 Balance -1000 Output: Urine 1000 Other: Voiding Method Urinal # Voids 3 - Exam Patient is awake, comfortable, no acute distress Examination of the heart S1 and S2 Examination of the lungs bilateral breath sounds are heard Abdomen is soft nontender Examination of lower extremities shows no significant edema HOME HEALTH REGISTERED NURSE exam grossly intact No asterixis - Labs CBC & Chem 7: 02/20/23 06:51 02/20/23 06:51 Labs: Abnormal Lab Results - Last 24 Hours (Table) 02/19/23 02/19/23 02/20/23 Range/Units 16:10 20:26 05:30 RBC (4.40-5.60) X 10*6/uL Hgb (13.0-17.0) g/dL Hct (39.6-50.0) % MCHC (32.0-37.0) g/dL BUN (9-20) mg/dL Creatinine (0.66-1.25) mg/dL Glucose (74-99) mg/dL POC Glucose (mg/dL) 364 H 346 H 127 H (70-110) mg/dL Calcium (8.4-10.2) mg/dL 02/20/23 02/20/23 02/20/23 Range/Units 06:51 06:51 12:08 RBC 3.52 L (4.40-5.60) X 10*6/uL Hgb 10.3 L (13.0-17.0) g/dL Hct 32.6 L (39.6-50.0) % MCHC 31.6 L (32.0-37.0) g/dL BUN 24 H (9-20) mg/dL Creatinine 5.26 H (0.66-1.25) mg/dL Glucose 176 H (74-99) mg/dL POC Glucose (mg/dL) 211 H (70-110) mg/dL Calcium 8.2 L (8.4-10.2) mg/dL Assessment and Plan Assessment: 1. Acute kidney injury ATN currently nonoliguric. UA is fairly benign with 1+ protein small blood and no WBCs or RBCs. Ultrasound shows no evidence of obstruction. Maintained on IV fluids with no significant improvement in renal function. Started hemodialysis on 02/16/2023 due to symptoms of uremia and worsening renal function. Urine output at about 2 L. Currently maintained on IV fluids. 2. Hyperkalemia associated with acute kidney injury metabolic acidosis and use of JOON inhibitor as prior to admission along with NSAIDs. 3. Anion gap metabolic acidosis secondary to acute kidney injury. No DKA noted. 4. Hyponatremia, hypovolemic and associated with acute kidney injury. 5. Hyperphosphatemia associated with acute kidney injury 6. Chronic kidney disease NKF stage IIIa with previous creatinine as low as 1.2 in April 2022. UA shows 1+ proteins suggesting underlying diabetic kidney disease. 7. Nausea and vomiting possibly related to uremia versus influenza infection versus diabetic gastroparesis 8. Influenza A infection Plan: Hold hemodialysis and monitor for recovery of renal function Continue IV fluids at 70 mL an hour. Continue to avoid nephrotoxic agents. repeat labs in a.m. Continue with Jerrod
[2023-02-20 13:59] LABS: African American GFR (CKD) 13 (>60 ml/min/1.73 sqM); Anion Gap 11 mmol/L; Blood Urea Nitrogen 25 mg/dL (9-20); Calcium 8.3 mg/dL (8.4-10.2); Carbon Dioxide 27 mmol/L (22-30); Chloride 101 mmol/L (98-107); Glucose 241 mg/dL (74-99); Non-African American GFR(CKD) 12 (>60 ml/min/1.73 sqM); Potassium 4.6 mmol/L (3.5-5.1); Sodium 139 mmol/L (137-145)
[2023-02-20 16:33] LABS: Glucose,Whole Blood 278 mg/dL (70-110)
--- NOTE | 2023-02-20 17:08 | P.PN ---
Subjective Progress Note Date: 02/20/23 Hospital course: Patient is a 37-year-old male with type 1 diabetes, dyslipidemia, hypertension, and hypothyroidism who initially presented to the ER with nausea and vomiting. Department he underwent an extensive evaluation. On arrival his vital signs were within normal limits. Laboratory analysis was remarkable for hemoglobin 11.8, sodium 130, bicarb 15, creatinine 9.35, BUN 95, and blood sugar of 429. Patient was ultimately found to be influenza A positive and had significant acute renal failure. Arrangements were made for admission. Patient was started on IV fluids and nephrology was consulted area despite aggressive fluid resuscitation the patient continued to have worsening renal function. Patient had a permacath placed on 02/16/23 and completed 3 days of consecutive dialysis and currently on day 2 of rest. Physical exam: Patient seen and fully evaluated at bedside this morning. Patient updated that we are taking a second day with no dialysis and we'll reevaluate renal function tomorrow as today creatinine is 5.26 General: non toxic, no distress, appears at stated age Derm: warm, dry Head: atraumatic, normocephalic, symmetric Eyes: EOMI, no lid lag, anicteric sclera Mouth: no lip lesion, mucus membranes moist Cardiovascular: S1S2 reg, no murmur, positive posterior tibial pulse bilateral, Lungs: CTA bilateral, no rhonchi, no rales , no accessory muscle use Abdominal: soft, nontender to palpation, no guarding, no appreciable organomegaly Ext: no gross muscle atrophy, no edema, no contractures Neuro: CN II-XI grossly intact, no focal neuro deficits Psych: Alert, oriented, appropriate affect Assessment and plan of care: Influenza A infection Acute kidney injury on chronic kidney disease stage IIIA Requiring dialysis High anion gap metabolic acidosis, hyperphosphatemia Anemia of chronic disease, secondary to stage III CKD Nausea and vomiting- initially thought to be secondary to uremia and now concerns of diabetic gastroparesis Vitamin D deficiency -Case was discussed with Dr. Harp. Patient to have a second dialysis holiday today and would like to reassess his renal function Tomorrow. -Asymptomatic from influenza A infection. Continue with supportive care. -Continue PhosLo 667 mg oral 3 times daily with meals and Sodium bicarb 650 mg oral daily with meals -Hold JOON inhibitor -Continue Reglan 5 mg IV TID for diabetic gastroparesis Type 1 diabetes mellitus with hyperglycemia, poorly controlled with hemoglobin A1c of 9.6%. -Hemoglobin A1c 9.6 -Blood glucose elevated at 176 this morning. After long discussion on import ance of adherence to insulin regimen and obtain tighter glycemic control patient was willing to take long-acting insulin 15 units daily this morning. Hyperlipidemia Continue daily medication regimen with atorvastatin 10 mg nightly. Hypothyroidism -Continue daily medication regimen with Synthroid 175 g daily Hyponatremia, resolved Hyperkalemia, resolved Hypocalcemia , resolved Severe dehydration, resolved Data and imaging reviewed: Labs completed and reviewed. CBC showing stable normocytic anemia with hemoglobin of 10.3. BMP revealing BUN of 24, creatinine 5.26, and GFR of 13. Vital signs reviewed. Blood pressure 138/85, heart rate 68, respiratory rate 18, temperature 98.5F, SpO2 of 93% on room air. DVT prophylaxis:start heparin Anticipated discharge date: Pending Clinical Course Anticipated discharge place: Pending Clinical Course Patient was seen independently by Nurse Pracitioner. This document was prepared using [employer] dictation software. Please allow for errors in multicut line operator, while rare they do occur. I reviewed the documentation as provided by the ENA above, who is the original author of this note. I agree with the documented assessment and plan, with the following changes: none Objective - Vital Signs Vital signs: Vital Signs Temp 98.5 F 02/20/23 07:25 Pulse 68 02/20/23 07:25 Resp 18 02/20/23 07:25 BP 138/85 02/20/23 07:25 Pulse Ox 93 L 02/20/23 07:25 FiO2 Intake & Output 02/19/23 02/20/23 02/20/23 18:59 06:59 18:59 Output Total 1000 Balance -1000 Weight 73.936 kg Output: Urine 1000 Other: Voiding Method Urinal # Voids 3 - Labs CBC & Chem 7: 02/20/23 06:51 02/20/23 13:17 Labs: Abnormal Lab Results - Last 24 Hours (Table) 02/19/23 02/19/23 02/20/23 Range/Units 16:10 20:26 05:30 RBC (4.40-5.60) X 10*6/uL Hgb (13.0-17.0) g/dL Hct (39.6-50.0) % MCHC (32.0-37.0) g/dL BUN (9-20) mg/dL Creatinine (0.66-1.25) mg/dL Glucose (74-99) mg/dL POC Glucose (mg/dL) 364 H 346 H 127 H (70-110) mg/dL Calcium (8.4-10.2) mg/dL 02/20/23 02/20/23 02/20/23 Range/Units 06:51 06:51 12:08 RBC 3.52 L (4.40-5.60) X 10*6/uL Hgb 10.3 L (13.0-17.0) g/dL Hct 32.6 L (39.6-50.0) % MCHC 31.6 L (32.0-37.0) g/dL BUN 24 H (9-20) mg/dL Creatinine 5.26 H (0.66-1.25) mg/dL Glucose 176 H (74-99) mg/dL POC Glucose (mg/dL) 211 H (70-110) mg/dL Calcium 8.2 L (8.4-10.2) mg/dL 02/20/23 Range/Units 13:17 RBC (4.40-5.60) X 10*6/uL Hgb (13.0-17.0) g/dL Hct (39.6-50.0) % MCHC (32.0-37.0) g/dL BUN 25 H (9-20) mg/dL Creatinine 5.67 H (0.66-1.25) mg/dL Glucose 241 H (74-99) mg/dL POC Glucose (mg/dL) (70-110) mg/dL Calcium 8.3 L (8.4-10.2) mg/dL
[2023-02-20 20:08] LABS: Glucose,Whole Blood 309 mg/dL (70-110)
[2023-02-21] MEDS: HEPARIN SODIUM,PORCINE 5,000 UNIT/ML 1 ML VIAL SQ SCH ×2 (00:04→08:52)
[2023-02-21] MEDS: METOCLOPRAMIDE 5 MG/ML 2 ML VIAL IVP SCH ×2 (03:06→10:52)
[2023-02-21 05:59] LABS: Glucose,Whole Blood 69 mg/dL (70-110)
[2023-02-21 06:21] LABS: Glucose,Whole Blood 87 mg/dL (70-110)
[2023-02-21] MEDS: INSULIN ASPART (NovoLOG) 100 UNIT/ML VIAL SQ SCH ×2 (06:31→12:07)
[2023-02-21] MEDS: LEVOTHYROXINE 88 MCG TAB PO SCH (06:32)
[2023-02-21] MEDS: CALCIUM ACETATE 667 MG TAB PO SCH ×2 (06:32→12:07)
[2023-02-21 07:47] LABS: African American GFR (CKD) 15 (>60 ml/min/1.73 sqM); Anion Gap 9 mmol/L; Blood Urea Nitrogen 27 mg/dL (9-20); Calcium 8.2 mg/dL (8.4-10.2); Carbon Dioxide 24 mmol/L (22-30); Chloride 104 mmol/L (98-107); Glucose 95 mg/dL (74-99); Non-African American GFR(CKD) 13 (>60 ml/min/1.73 sqM); Potassium 4.6 mmol/L (3.5-5.1); Sodium 137 mmol/L (137-145)
[2023-02-21 08:20] LABS: HGB 9.8 gm/dL (13.0-17.5); MCHC 32.8 g/dL (31.0-37.0); MCV 91.7 fL (80.0-100.0); Mean Platelet Volume 9.4; Platelet Count 295 k/uL (150-450); RBC 3.27 m/uL (4.30-5.90); RDW 13.8 % (11.5-15.5); WBC 7.7 k/uL (3.8-10.6)
[2023-02-21] MEDS: ATORVASTATIN 10 MG TAB PO SCH (08:52)
[2023-02-21] MEDS: CHOLECALCIFEROL 25 MCG (1000 IU) TABLET PO SCH (08:52)
[2023-02-21] MEDS: INSULIN DETEMIR (LEVEMIR) 100 UNIT/ML SYR SQ SCH (08:55)
[2023-02-21 08:58] LABS: Glucose,Whole Blood 196 mg/dL (70-110)
[2023-02-21 10:20] VITALS: BP 127/85; PULSE 69; RESP 14; TEMP 98.2
[2023-02-21] MEDS: PANTOPRAZOLE 40 MG/10 ML VIAL IV SCH (10:48)
[2023-02-21] MEDS: SODIUM CHLORIDE 0.9% 1,000 ML IV SCH (10:50)
--- NOTE | 2023-02-21 11:18 | P.PN ---
Subjective Patient is seen for follow-up for acute kidney injury. He was admitted to the hospital with complaints of nausea and increased weakness. Patient tested positive for influenza A. Serum creatinine was significantly elevated at 9.3 and increased to 10.1 . Previous creatinine 1.2 on 05/16/2022 and 1.7 on 06/05/2022. Started hemodialysis 02/16/2023. Status post 3 consecutive treatments. Hemodialysis on hold to assess recovery of renal function. Patient continues to have good urine output. About 2 L for 24 hours. Nausea has improved. Serum creatinine at 5.2 today from 5.6 yesterday. Objective - Vital Signs Vital signs: Vital Signs Temp 98.2 F 02/21/23 07:08 Pulse 69 02/21/23 07:08 Resp 14 02/21/23 07:08 BP 127/85 02/21/23 07:08 Pulse Ox 95 02/21/23 07:08 FiO2 Intake & Output 02/20/23 02/21/23 02/21/23 18:59 06:59 18:59 Output Total 1550 Balance -1550 Weight 73.936 kg Output: Urine 1550 Other: # Voids 1,000 - Exam Patient is awake, comfortable, no acute distress Examination of lower extremities shows no significant edema [employer] exam grossly intact No asterixis - Labs CBC & Chem 7: 02/21/23 06:46 02/21/23 06:46 Labs: Abnormal Lab Results - Last 24 Hours (Table) 02/20/23 02/20/23 02/20/23 Range/Units 12:08 13:17 16:28 RBC (4.30-5.90) m/uL Hgb (13.0-17.5) gm/dL Hct (39.0-53.0) % BUN 25 H (9-20) mg/dL Creatinine 5.67 H (0.66-1.25) mg/dL Glucose 241 H (74-99) mg/dL POC Glucose (mg/dL) 211 H 278 H (70-110) mg/dL Calcium 8.3 L (8.4-10.2) mg/dL 02/20/23 02/21/23 02/21/23 Range/Units 20:07 05:56 06:46 RBC 3.27 L (4.30-5.90) m/uL Hgb 9.8 L (13.0-17.5) gm/dL Hct 30.0 L (39.0-53.0) % BUN (9-20) mg/dL Creatinine (0.66-1.25) mg/dL Glucose (74-99) mg/dL POC Glucose (mg/dL) 309 H 69 L (70-110) mg/dL Calcium (8.4-10.2) mg/dL 02/21/23 02/21/23 Range/Units 06:46 08:57 RBC (4.30-5.90) m/uL Hgb (13.0-17.5) gm/dL Hct (39.0-53.0) % BUN 27 H (9-20) mg/dL Creatinine 5.29 H (0.66-1.25) mg/dL Glucose (74-99) mg/dL POC Glucose (mg/dL) 196 H (70-110) mg/dL Calcium 8.2 L (8.4-10.2) mg/dL Assessment and Plan Assessment: 1. Acute kidney injury ATN currently nonoliguric. UA is fairly benign with 1+ protein small blood and no WBCs or RBCs. Ultrasound shows no evidence of obstruction. Maintained on IV fluids with no significant improvement in renal function. Started hemodialysis on 02/16/2023 due to symptoms of uremia and worsening renal function. Urine output at about 2 L. Currently maintained on IV fluids. Hemodialysis has been on hold for 3 days. Serum creatinine staying stable around 5.2-5.6 mg/dL. 2. Hyperkalemia associated with acute kidney injury metabolic acidosis and use of JOON inhibitor as prior to admission along with NSAIDs. 3. Anion gap metabolic acidosis secondary to acute kidney injury. No DKA noted. 4. Hyponatremia, hypovolemic and associated with acute kidney injury. 5. Hyperphosphatemia associated with acute kidney injury 6. Chronic kidney disease NKF stage IIIa with previous creatinine as low as 1.2 in April 2022. UA shows 1+ proteins suggesting underlying diabetic kidney disease. 7. Nausea and vomiting possibly related to uremia versus influenza infection versus diabetic gastroparesis 8. Influenza A infection Plan: Continue to hold dialysis for now. Patient can be discharged from nephrology standpoint with plans for labs to be done in 2 days time. Based on labs next week we will decide if patient needs to continue hemodialysis. Maintained aggressive oral hydration post discharge. Continue to avoid NSAIDs.
[2023-02-21 12:01] LABS: Glucose,Whole Blood 199 mg/dL (70-110)
--- NOTE | 2023-02-21 12:39 | P.DS ---
Providers Date of admission: 02/14/23 14:51 Expected date of discharge: 02/21/23 Attending physician: Ramo Cohn MD Consults: 02/14/23 14:50 Consult Physician Urgent Consulting Provider: Celina العلي Consult Reason/Comments: venecia Do you want consulting provider notified?: Yes 02/16/23 10:39 Consult Physician Stat Consulting Provider: Bjorn Jacobsen Consult Reason/Comments: permacath placement Do you want consulting provider notified?: Yes Primary care physician: Jose Espinoza MD Hospital Course: Patient is a 37-year-old male with type 1 diabetes, dyslipidemia, hypertension, and hypothyroidism who initially presented to the ER with nausea and vomiting. Department he underwent an extensive evaluation. On arrival his vital signs were within normal limits. Laboratory analysis was remarkable for hemoglobin 11.8, sodium 130, bicarb 15, creatinine 9.35, BUN 95, and blood sugar of 429. Patient was ultimately found to be influenza A positive and had significant acute renal failure. Arrangements were made for admission. Patient was started on IV fluids and nephrology was consulted area despite aggressive fluid resuscitation the patient continued to have worsening renal function. Patient had a permacath placed on 02/16/23 and completed 3 days of consecutive dialysis and currently on day 3 of rest. 02/21 Patient was seen and examined. No nausea or vomiting. No complaints. CBC Hg 9.8. BMP BUN 27, Cr 5.29. Discussed with Dr. العلي, cleared for discharge, repeat BMP on Thursday, results to be followed up by Nephrology, keep HD catheter in place. Pertinent studies Renal Bladder US, CXR. Pertinent procedures HD catheter General: non toxic, no distress, appears at stated age Derm: warm, dry Head: atraumatic, normocephalic, symmetric Eyes: EOMI, no lid lag, anicteric sclera Cardiovascular: S1S2 reg, no murmur Lungs: CTA bilaterally, no rhonchi, no rales , no accessory muscle use Ext: no gross muscle atrophy, no edema, no contractures Neuro: no focal neuro deficits Psych: Alert, oriented, appropriate affect Discharge Diagnosis: Influenza A infection Acute kidney injury on chronic kidney disease stage IIIA Requiring dialysis High anion gap metabolic acidosis, hyperphosphatemia Anemia of chronic disease, secondary to stage III CKD Nausea and vomiting Vitamin D deficiency Type 1 diabetes mellitus with hyperglycemia, poorly controlled with hemoglobin A1c of 9.6% Hyperlipidemia Hypothyroidism This complex discharge took 35 minutes to complete. Patient Condition at Discharge: Stable Plan - Discharge Summary New Discharge Prescriptions: New Pantoprazole Sodium [Protonix] 40 mg PO DAILY #30 tab Metoclopramide HCl [Reglan] 10 mg PO AC-TID PRN #30 tablet PRN Reason: Nausea And Vomiting Calcium Acetate [PhosLo] 667 mg PO TID-W/MEALS #90 tab Continue Levothyroxine Sodium [Synthroid] 175 mcg PO DAILY Insulin Glargine,Hum.rec.anlog [Lantus Solostar Pen] 15 units SQ DAILY Insulin Aspart [NovoLOG Flexpen] 3 units SQ TID-W/MEALS Rosuvastatin Calcium 5 mg PO DAILY Glucagon Emergency Kit 1 mg SQ ONCE PRN PRN Reason: low blood sugar Azithromycin [Zithromax] See Taper PO DIRECTED Discontinued lisinopriL [Zestril] 5 mg PO DAILY Discharge Medication List Insulin Aspart [NovoLOG Flexpen] 3 units SQ TID-W/MEALS 05/16/22 [History] Insulin Glargine,Hum.rec.anlog [Lantus Solostar Pen] 15 units SQ DAILY 05/16/22 [History] Azithromycin [Zithromax] See Taper PO DIRECTED 02/14/23 [History] Glucagon Emergency Kit 1 mg SQ ONCE PRN 02/14/23 [History] Levothyroxine Sodium [Synthroid] 175 mcg PO DAILY 02/14/23 [History] Rosuvastatin Calcium 5 mg PO DAILY 02/14/23 [History] Calcium Acetate [PhosLo] 667 mg PO TID-W/MEALS #90 tab 02/21/23 [Rx] Metoclopramide HCl [Reglan] 10 mg PO AC-TID PRN #30 tablet 02/21/23 [Rx] Pantoprazole Sodium [Protonix] 40 mg PO DAILY #30 tab 02/21/23 [Rx] Follow up Appointment(s)/Referral(s): Celina العلي MD [STAFF PHYSICIAN] - 1 Week (Please call to schedule appointment ) Jose Espinoza MD [Primary Care Provider] - 1-2 days (Please call to schedule appointment ) Ambulatory/Diagnostic Orders: Basic Metabolic Panel [LAB.AMB] Time Frame: 02/24/23, Location: None Selected Activity/Diet/Wound Care/Special Instructions: DIET: RENAL REPEAT BMP ON THURSDAY. FOLLOW UP RESULTS WITH DR. العلي Discharge Disposition: HOME SELF-CARE
== END 2023-02-21 14:33 | disposition home or self-care (01) | DRG 193 ==
LOC: EC 12:23 → 4SSUR 14:51
PROVIDERS: ADMIT Student in an Organized Health Care Education/Training Program; ATTEND Student in an Organized Health Care Education/Training Program
PROC: 02HV33Z Insertion of Infusion Device into Superior Vena Cava, Percutaneous Approach (ICD-10-PCS; principal; 2023-02-16 14:40)
PROC: 5A1D70Z Performance of Urinary Filtration, Intermittent, Less than 6 Hours Per Day (ICD-10-PCS; principal; 2023-02-16 14:40)
DX: J09.X1 Influenza due to identified novel influenza A virus with pneumonia (principal); N17.0 Acute kidney failure with tubular necrosis; E87.20 Acidosis, unspecified; E87.1 Hypo-osmolality and hyponatremia; J12.9 Viral pneumonia, unspecified; D63.1 Anemia in chronic kidney disease; E83.51 Hypocalcemia; E83.39 Other disorders of phosphorus metabolism; E10.22 Type 1 diabetes mellitus with diabetic chronic kidney disease; E10.65 Type 1 diabetes mellitus with hyperglycemia; N18.31 Chronic kidney disease, stage 3a; Z99.2 Dependence on renal dialysis; Z79.4 Long term (current) use of insulin; Z28.310 Unvaccinated for COVID-19; I12.9 Hypertensive chronic kidney disease with stage 1 through stage 4 chronic kidney disease, or unspecified chronic kidney disease; E78.5 Hyperlipidemia, unspecified; E87.5 Hyperkalemia; E86.0 Dehydration; E86.1 Hypovolemia; E03.9 Hypothyroidism, unspecified; Z79.890 Hormone replacement therapy; Z79.899 Other long term (current) drug therapy
CPT/HCPCS: 36415; 36558; 71046; 76770; 76937; 77001; 80048; 80053; 81001; 82009; 82150; 82306; 82570; 83036; 83690; 83735; 84100; 84300; 85025; 85027; 86706; 87340; 87636; 90935; 96361; 96374; 96375; 99291

== ENCOUNTER 2023-02-24 09:59 | Emergency (ER) | payer BC ==
--- NOTE | 2023-02-24 11:45 | ED ---
Skin/Abscess/FB HPI - General Source: patient, RN notes reviewed Mode of arrival: ambulatory Limitations: no limitations <Saúl Johnson - Last Filed: 02/25/23 16:50> - History of Present Illness MD complaint: rash, discoloration -: days(s) Tetanus Up to Date: yes Location: generalized Severity: moderate Severity scale (1-10): 5 Quality: stabbing Consistency: constant Improves with: none Worsens with: none Context: recent illness Associated symptoms: denies other symptoms Treatments Prior to Arrival: none <Kan Méndez - Last Filed: 03/04/23 23:46> - General Chief complaint: Skin/Abscess/Foreign Body Stated complaint: Dialysis Port R Side Drainage Time Seen by Provider: 02/24/23 11:42 - History of Present Illness Initial comments: Patient is a 37-year-old male presented ER with chief complaint of a chest HEENT change. Patient states he had a catheter placed for dialysis and Band-Aid is needing to be changed. Patient denies any purulent drainage, fevers, chills, night sweats. (Saúl Johnson) This is a 29-year-old male to the emergency department for evaluation of the dialysis catheter changed secondary to significant amount of bleeding around the drain site. Patient is asking for wound care (Kan Méndez) - Related Data Home Medications Medication Instructions Recorded Confirmed Insulin Aspart [NovoLOG Flexpen] 3 units SQ TID-W/MEALS 05/16/22 02/14/23 Insulin Glargine,Hum.rec.anlog 15 units SQ DAILY 05/16/22 02/14/23 [Lantus Solostar Pen] Azithromycin [Zithromax] See Taper PO DIRECTED 02/14/23 02/14/23 Glucagon Emergency Kit 1 mg SQ ONCE PRN 02/14/23 02/14/23 Levothyroxine Sodium [Synthroid] 175 mcg PO DAILY 02/14/23 02/14/23 Rosuvastatin Calcium 5 mg PO DAILY 02/14/23 02/14/23 Previous Rx's Medication Instructions Recorded Calcium Acetate [PhosLo] 667 mg PO TID-W/MEALS #90 tab 02/21/23 Metoclopramide HCl [Reglan] 10 mg PO AC-TID PRN #30 tablet 02/21/23 Pantoprazole Sodium [Protonix] 40 mg PO DAILY #30 tab 02/21/23 Allergies Allergy/AdvReac Type Severity Reaction Status Date / Time No Known Allergies Allergy Verified 02/14/23 12:31 Review of Systems ROS Other: All systems not noted in ROS Statement are negative. <Saúl Johnson - Last Filed: 02/25/23 16:50> ROS Other: All systems not noted in ROS Statement are negative. <Kan Méndez - Last Filed: 03/04/23 23:46> ROS Statement: Those systems with pertinent positive or pertinent negative responses have been documented in the HPI. Past Medical History Past Medical History: Diabetes Mellitus Additional Past Medical History / Comment(s): T1D History of Any Multi-Drug Resistant Organisms: None Reported Past Surgical History: Tonsillectomy Past Anesthesia/Blood Transfusion Reactions: No Reported Reaction Past Psychological History: No Psychological Hx Reported Smoking Status: Never smoker Past Alcohol Use History: Rare Past Drug Use History: None Reported - Past Family History Father Family Medical History: Myocardial Infarction ([place]) Additional Family Medical History / Comment(s): of a heart attack <Saúl Johnson - Last Filed: 02/25/23 16:50> General Exam Limitations: no limitations <Saúl Johnson - Last Filed: 02/25/23 16:50> General appearance: alert, in no apparent distress Head exam: Present: atraumatic, normocephalic, normal inspection Eye exam: Present: normal appearance, PERRL, EOMI. Absent: scleral icterus, conjunctival injection, periorbital swelling ENT exam: Present: normal exam, mucous membranes moist Neck exam: Present: normal inspection. Absent: tenderness, meningismus, lymphadenopathy Respiratory exam: Present: normal lung sounds bilaterally. Absent: respiratory distress, wheezes, rales, rhonchi, stridor Cardiovascular Exam: Present: regular rate, normal rhythm, normal heart sounds. Absent: systolic murmur, diastolic murmur, rubs, gallop, clicks GI/Abdominal exam: Present: soft, normal bowel sounds. Absent: distended, tenderness, guarding, rebound, rigid Extremities exam: Present: normal inspection, full ROM, normal capillary refill. Absent: tenderness, pedal edema, joint swelling, calf tenderness Back exam: Present: normal inspection Neurological exam: Present: alert, oriented X3, CN II-XII intact Psychiatric exam: Present: normal affect, normal mood Skin exam: Present: warm, dry, intact, normal color. Absent: rash <Kan Méndez - Last Filed: 03/04/23 23:46> - General Exam Comments Initial Comments: Visual Physical Exam Vital signs reviewed General: Well-appearing, nontoxic, no acute distress. Head: Normocephalic, atraumatic Eyes: PERRLA, EOMI ENT: Airway patent Chest: Nonlabored breathing Skin: No visual rash, normal skin tone Neuro: Alert and oriented 3 Musculoskeletal: No gross abnormalities (Saúl Johnson) Course <Kan Méndez - Last Filed: 03/04/23 23:46> Vital Signs 02/24/23 02/24/23 10:10 17:10 Temperature 98.2 F 98 F Pulse Rate 89 78 Respiratory 18 16 Rate Blood Pressure 124/77 128/78 O2 Sat by Pulse 97 97 Oximetry - Reevaluation(s) Reevaluation #1: Records reviewed (Kan Méndez) Reevaluation #2: Patient symptoms are improved, resolved after bandage change (Kan Méndez) Reevaluation #3: Patient informed results and questions answered (Kan Méndez) Reevaluation #4: 02/24/23 17:07 Was pt. sent in by a medical professional or institution (, PA, [employer] [facility], urgent care, hospital, or residential...) When possible be specific @ -no Did you speak to anyone other than the patient for history (EMS, parent, family, police, friend...)? What history was obtained from this source @ -no Did you review nursing and triage notes (agree or disagree)? Why? @ -agree Are old charts reviewed (outside hosp., previous admission, EMS record, old EKG, old radiological studies, urgent care reports/EKG's, residential records)? Report findings @ -yes Differential Diagnosis (chest pain, altered mental status, abdominal pain women, abdominal pain men, vaginal bleeding, weakness, fever, dyspnea, syncope, headache, dizziness, GI bleed, back pain, seizure, CVA, palpatations, mental health, musculoskeletal)? @ -prior EKG interpreted by me (3pts min.). @ -no X-rays interpreted by me (1pt min.). @ -no CT interpreted by me (1pt min.). @ -no U/S interpreted by me (1pt. min.). @ -no What testing was considered but not performed or refused? (CT, X-rays, U/S, labs)? Why? @ -none What meds were considered but not given or refused? Why? @ -none Did you discuss the management of the patient with other professionals (professionals i.e. , PA, [employer], lab, RT, psych nurse, perinatal social worker, coffee blender, teacher, development officer, pillowcase sewer)? Give summary @ -no Was smoking cessation discussed for >3mins.? @ -no Was critical care preformed (if so, how long)? @ -no Were there social determinants of health that impacted care today? How? (Homelessness, low income, unemployed, alcoholism, drug addiction, transportation, low edu. Level, literacy, decrease access to med. care, long-term, rehab)? @ -none Was there de-escalation of care discussed even if they declined (Discuss DNR or withdrawal of care, Hospice)? DNR status @ -no What co-morbidities impacted this encounter? (DM, HTN, Smoking, COPD, CAD, Cancer, CVA, ARF, Chemo, Hep., AIDS, mental health diagnosis, sleep apnea, morbid obesity)? @ -none Was patient admitted / discharged? Hospital course, mention meds given and route, prescriptions, significant lab abnormalities, going to OR and other pertinent info. @ - 37 male presents today for evaluation of wound care, bands change here in the ER with a [facility] here without difficulty. Patient has no significant complaints and can be discharged home Discharge Undiagnosed new problem with uncertain prognosis? @ -no Drug Therapy requiring intensive monitoring for toxicity (Heparin, Nitro, Insulin, Cardizem)? @ -no Were any procedures done? @ -no Diagnosis/symptom? @ -Bandage change, wound care Acute, or Chronic, or Acute on Chronic? @ -Acute Uncomplicated (without systemic symptoms) or Complicated (systemic symptoms)? @ -Complicated Side effects of treatment? @ -no Exacerbation, Progression, or Severe Exacerbation? @ -exacerbation Poses a threat to life or bodily function? How? (Chest pain, [place], [place], pneumonia, PE, COPD, DKA, ARF, appy, cholecystitis, CVA, Diverticulitis, Homicidal, Suicidal, threat to staff... and all critical care pts) @ -no (Kan Méndez) Medical Decision Making - Lab Data Result diagrams: 02/24/23 15:20 02/24/23 15:20 <Saúl Johnson - Last Filed: 02/25/23 16:50> - Lab Data Result diagrams: 02/24/23 15:20 02/24/23 15:20 <Kan Méndez - Last Filed: 03/04/23 23:46> - Medical Decision Making I performed the quick note portion of the exam. Electronically signed by Saúl Johnson PA-C (Saúl Johnson) 37 male to the emergency department for evaluation of needing a wound care and dressing change dressing is changed here in the ER he feels well can be discharged home (Kan Méndez) - Lab Data Lab Results 02/24/23 02/24/23 Range/Units 15:20 15:20 WBC 9.4 (3.8-10.6) k/uL RBC 3.67 L (4.30-5.90) m/uL Hgb 11.3 L (13.0-17.5) gm/dL Hct 33.2 L (39.0-53.0) % MCV 90.6 (80.0-100.0) fL MCH 30.7 (25.0-35.0) pg MCHC 33.9 (31.0-37.0) g/dL RDW 14.0 (11.5-15.5) % Plt Count 328 (150-450) k/uL MPV 10.0 Sodium 138 (137-145) mmol/L Potassium 5.0 (3.5-5.1) mmol/L Chloride 100 (98-107) mmol/L Carbon Dioxide 25 (22-30) mmol/L Anion Gap 13 mmol/L BUN 38 H (9-20) mg/dL Creatinine 4.54 H (0.66-1.25) mg/dL Est GFR (CKD-EPI)AfAm 18 (>60 ml/min/1.73 sqM) Est GFR (CKD-EPI)NonAf 15 (>60 ml/min/1.73 sqM) Glucose 198 H (74-99) mg/dL Calcium 9.6 (8.4-10.2) mg/dL Total Bilirubin 0.6 (0.2-1.3) mg/dL AST 38 (17-59) U/L ALT 42 (4-49) U/L Alkaline Phosphatase 84 (38-126) U/L Total Protein 7.6 (6.3-8.2) g/dL Albumin 4.2 (3.5-5.0) g/dL Disposition Is patient prescribed a controlled substance at d/c from ED?: No <Saúl Johnson - Last Filed: 02/25/23 16:50> Is patient prescribed a controlled substance at d/c from ED?: No Time of Disposition: 17:00 <Kan Mnédez - Last Filed: 03/04/23 23:46> Clinical Impression: Encounter for wound care, Dressing change Disposition: HOME SELF-CARE Condition: Good Instructions (If sedation given, give patient instructions): Acute Wound Care (ED) Referrals: Jose Espinoza MD [Primary Care Provider] - 1-2 days
[2023-02-24 16:18] LABS: HCT 33.2 % (39.0-53.0); HGB 11.3 gm/dL (13.0-17.5); MCH 30.7 pg (25.0-35.0); MCHC 33.9 g/dL (31.0-37.0); MCV 90.6 fL (80.0-100.0); Platelet Count 328 k/uL (150-450); RBC 3.67 m/uL (4.30-5.90); WBC 9.4 k/uL (3.8-10.6)
[2023-02-24 16:39] LABS: ALT 42 U/L (4-49); AST 38 U/L (17-59); African American GFR (CKD) 18 (>60 ml/min/1.73 sqM); Albumin 4.2 g/dL (3.5-5.0); Alkaline Phosphatase 84 U/L (38-126); Anion Gap 13 mmol/L; Blood Urea Nitrogen 38 mg/dL (9-20); Calcium 9.6 mg/dL (8.4-10.2); Carbon Dioxide 25 mmol/L (22-30); Chloride 100 mmol/L (98-107); Glucose 198 mg/dL (74-99); Non-African American GFR(CKD) 15 (>60 ml/min/1.73 sqM); Sodium 138 mmol/L (137-145); Total Bilirubin 0.6 mg/dL (0.2-1.3); Total Protein 7.6 g/dL (6.3-8.2)
[2023-02-24 17:18] VITALS: BP 128/78; PULSE 78; RESP 16; TEMP 98
== END 2023-02-24 17:10 | disposition home or self-care (01) ==
LOC: EC 09:59
DX: Z48.00 Encounter for change or removal of nonsurgical wound dressing (principal); E11.9 Type 2 diabetes mellitus without complications; Z79.4 Long term (current) use of insulin; Z79.84 Long term (current) use of oral hypoglycemic drugs
CPT/HCPCS: 36415; 80053; 85027; 99283

== ENCOUNTER → 2023-02-24 | Outpatient (CLI) | payer BC ==
[2023-02-24 15:11] LABS: Blood Urea Nitrogen 34.8 mg/dL (9.0-27.0); Calcium 9.6 mg/dL (8.7-10.3); Carbon Dioxide 23.5 mmol/L (21.6-31.8); Chloride 99 mmol/L (96-109); Glucose 493 mg/dL (70-110); Potassium 5.3 mmol/L (3.5-5.5); Sodium 137 mmol/L (135-145)
== END | disposition home or self-care (01) ==
LOC: LABPAT 08:32
PROVIDERS: ATTEND Family Medicine
DX: N17.9 Acute kidney failure, unspecified (principal)
CPT/HCPCS: 80048

== ENCOUNTER → 2023-03-03 | Outpatient (CLI) | payer BC ==
[2023-03-03 15:49] LABS: BUN/Creat Ratio 11.48 Ratio (12.00-20.00); Calcium 9.8 mg/dL (8.7-10.3); Carbon Dioxide 24.3 mmol/L (21.6-31.8); Chloride 99 mmol/L (96-109); Glucose 328 mg/dL (70-110); Potassium 6.2 mmol/L (3.5-5.5); Sodium 137 mmol/L (135-145)
== END | disposition home or self-care (01) ==
LOC: LABWHC1 08:25
PROVIDERS: ATTEND Internal Medicine Nephrology
DX: N17.9 Acute kidney failure, unspecified (principal)
CPT/HCPCS: 36415; 80048

== ENCOUNTER → 2023-03-04 | Outpatient (CLI) | payer BC ==
[2023-03-04 16:19] LABS: BUN/Creat Ratio 12.15 Ratio (12.00-20.00); Blood Urea Nitrogen 31.6 mg/dL (9.0-27.0); Calcium 9.4 mg/dL (8.7-10.3); Carbon Dioxide 24.8 mmol/L (21.6-31.8); Chloride 100 mmol/L (96-109); Glucose 352 mg/dL (70-110); Potassium 6.1 mmol/L (3.5-5.5); Sodium 136 mmol/L (135-145)
== END | disposition home or self-care (01) ==
LOC: LABWHC1 08:58
PROVIDERS: ATTEND Internal Medicine Nephrology
DX: N17.9 Acute kidney failure, unspecified (principal)
CPT/HCPCS: 36415; 80048

== ENCOUNTER → 2023-03-06 | Outpatient (CLI) | payer BC ==
[2023-03-06 16:42] LABS: BUN/Creat Ratio 12.12 Ratio (12.00-20.00); Blood Urea Nitrogen 30.3 mg/dL (9.0-27.0); Calcium 9.3 mg/dL (8.7-10.3); Chloride 102 mmol/L (96-109); Glucose 195 mg/dL (70-110); Potassium 4.5 mmol/L (3.5-5.5); Sodium 139 mmol/L (135-145)
== END | disposition home or self-care (01) ==
LOC: LABWHC1 08:52
PROVIDERS: ATTEND Internal Medicine Nephrology
DX: N17.9 Acute kidney failure, unspecified (principal)
CPT/HCPCS: 36415; 80048

== ENCOUNTER → 2023-04-10 | Outpatient (CLI) | payer BC ==
[2023-04-10 11:26] LABS: BUN/Creat Ratio 13.29 Ratio (12.00-20.00); Blood Urea Nitrogen 22.6 mg/dL (9.0-27.0); Calcium 10.1 mg/dL (8.7-10.3); Carbon Dioxide 24.5 mmol/L (21.6-31.8); Chloride 103 mmol/L (96-109); Glucose 175 mg/dL (70-110); Magnesium 2.3 mg/dL (1.5-2.4); Phosphorus 3.6 mg/dL (2.4-5.1); Potassium 5.1 mmol/L (3.5-5.5); Sodium 139 mmol/L (135-145)
== END | disposition home or self-care (01) ==
LOC: LABWHC1 07:36
PROVIDERS: ATTEND Nurse Practitioner Acute Care
DX: N17.9 Acute kidney failure, unspecified (principal)
CPT/HCPCS: 36415; 80048; 83735; 84100

== ENCOUNTER 2024-03-29 18:42 | Emergency (ER) | payer BC ==
[2024-03-29 18:46] LABS: Glucose,Whole Blood 427 mg/dL (70-110)
--- NOTE | 2024-03-29 19:14 | ED ---
General Adult HPI - General Chief complaint: Recheck/Abnormal Lab/Rx Stated complaint: Blood sugar issue Time Seen by Provider: 03/29/24 18:54 Source: patient Mode of arrival: ambulatory Limitations: no limitations - History of Present Illness Initial comments: Dictation was produced using [employer] dictation software. please excuse any grammatical, word or spelling errors. Chief Complaint: 38-year-old male with hyperglycemia History of Present Illness: 38-year-old male presents to the emergency department for hyperglycemia. Patient is diabetic relies on insulin pump for management of his diabetes. Patient has no other symptoms. States that sugars have been high for the last couple days. Patient has had an insulin pump for several months. He has had no issues. The ROS documented in this emergency department record has been reviewed and c onfirmed by me. Those systems with pertinent positive or negative responses have been documented in the HPI. All other systems are other negative and/or noncontributory. - Related Data Home Medications Medication Instructions Recorded Confirmed Insulin Aspart [NovoLOG Flexpen] 3 units SQ TID-W/MEALS 05/16/22 02/14/23 Insulin Glargine,Hum.rec.anlog 15 units SQ DAILY 05/16/22 02/14/23 [Lantus Solostar Pen] Azithromycin [Zithromax] See Taper PO DIRECTED 02/14/23 02/14/23 Glucagon Emergency Kit 1 mg SQ ONCE PRN 02/14/23 02/14/23 Levothyroxine Sodium [Synthroid] 175 mcg PO DAILY 02/14/23 02/14/23 Rosuvastatin Calcium 5 mg PO DAILY 02/14/23 02/14/23 Previous Rx's Medication Instructions Recorded Calcium Acetate [PhosLo] 667 mg PO TID-W/MEALS #90 tab 02/21/23 Metoclopramide HCl [Reglan] 10 mg PO AC-TID PRN #30 tablet 02/21/23 Pantoprazole Sodium [Protonix] 40 mg PO DAILY #30 tab 02/21/23 Allergies Allergy/AdvReac Type Severity Reaction Status Date / Time No Known Allergies Allergy Verified 03/29/24 18:52 Review of Systems ROS Statement: Those systems with pertinent positive or pertinent negative responses have been documented in the HPI. ROS Other: All systems not noted in ROS Statement are negative. Past Medical History Past Medical History: Diabetes Mellitus Additional Past Medical History / Comment(s): T1D History of Any Multi-Drug Resistant Organisms: None Reported Past Surgical History: Tonsillectomy Past Anesthesia/Blood Transfusion Reactions: No Reported Reaction Past Psychological History: No Psychological Hx Reported Smoking Status: Never smoker Past Alcohol Use History: Rare Past Drug Use History: None Reported - Past Family History Father Family Medical History: Myocardial Infarction (OR) Additional Family Medical History / Comment(s): of a heart attack General Exam - General Exam Comments Initial Comments: PHYSICAL EXAM: General Impression: Alert and oriented x3, not in acute distress HEENT: Normocephalic atraumatic, extra-ocular movements intact, pupils equal and reactive to light bilaterally, mucous membranes moist. Cardiovascular: Heart regular rate and rhythm Chest: Able to complete full sentences, no retractions, no tachypnea Abdomen: abdomen soft, non-tender, non-distended, no organomegaly Musculoskeletal: Pulses present and equal in all extremities, no peripheral edema Motor: no focal deficits noted Neurological: CN II-XII grossly intact, no focal motor or sensory deficits noted Skin: Intact with no visualized rashes Psych: Normal affect and mood Limitations: no limitations Course Vital Signs 03/29/24 18:50 Temperature 98.3 F Pulse Rate 131 H Respiratory 20 Rate Blood Pressure 119/72 O2 Sat by Pulse 96 Oximetry Medical Decision Making - Medical Decision Making Was pt. sent in by a medical professional or institution (KISHAN Hart, HEREDITARY CANCER PROGRAM COORDINATOR, urgent care, hospital, or penitentiary...) When possible be specific @ -No Did you speak to anyone other than the patient for history (EMS, parent, family, police, friend...)? What history was obtained from this source @ -No Did you review nursing and triage notes (agree or disagree)? Why? @ -I reviewed and agree with nursing and triage notes Were old charts reviewed (outside hosp., previous admission, EMS record, old EKG, old radiological studies, urgent care reports/EKG's, penitentiary records)? Report findings @ -No old charts were reviewed Differential Diagnosis (chest pain, altered mental status, abdominal pain women, abdominal pain men, vaginal bleeding, musculoskeletal, weakness, fever, dyspnea, syncope, headache, dizziness, GI bleed, back pain, seizure, CVA, palpatations, mental health)? @ -DKA, hyperosmolar coma, hyperglycemia EKG interpreted by me (3pts min.). @ -None done X-rays interpreted by me (1pt min.). @ -None done CT interpreted by me (1pt min.). @ -None done U/S interpreted by me (1pt. min.). @ -None done What testing was considered but not performed or refused? (CT, X-rays, U/S, labs)? Why? @ -None What meds were considered but not given or refused? Why? @ -None Was smoking cessation discussed for >3mins.? @ -No Were there social determinants of health that impacted care today? How? (Homelessness, low income, unemployed, alcoholism, drug addiction, transportation, low edu. Level, literacy, decrease access to med. care, usp, rehab)? @ -No Was there de-escalation of care discussed even if they declined (Discuss DNR or withdrawal of care, Hospice)? DNR status @ -No What co-morbidities impacted this encounter? (DM, HTN, Smoking, COPD, CAD, Cancer, CVA, ARF, Chemo, Hep., AIDS, mental health diagnosis, sleep apnea, morbid obesity)? @ -Diabetes Was patient admitted / discharged? Hospital course, mention meds given and route, prescriptions, significant lab abnormalities, going to OR and other pertinent info. @ -38-year-old diabetic male presents to the emergency department for hyperglycemia. Patient diabetes managed with insulin pump. Initial blood sugars 427. Patient well-appearing at the bedside with stable physical exam. Laboratory evaluation obtained showing hyperglycemia of 393.. Patient given IV fluids. Monitored in the emergency department. States that his insulin pump must not have been working well prior to this because his sugar now appears to be much more controlled. Potassium low 5.7 seen on labs however with hemolysis. Patient not having symptoms hyperglycemia is likely a lab error. Patient IV fluids stable for discharge advised follow-up with his software support representative. Did you discuss the management of the patient with other professionals (bartolo duarte i.e. , PA, HEREDITARY CANCER PROGRAM COORDINATOR, lab, RT, psych nurse, long term care social worker, referral and information aide, teacher, property utilization officer, window caser)? Give summary @ -No Was critical care preformed (if so, how long)? @ -No Undiagnosed new problem with uncertain prognosis? @ -No Drug Therapy requiring intensive monitoring for toxicity (Heparin, Nitro, Insulin, Cardizem)? @ -No Were any procedures done? @ -No Diagnosis/symptom? Acute, or Chronic, or Acute on Chronic? Uncomplicated (without systemic symptoms) or Complicated (systemic symptoms)? @ -Hyperglycemia Side effects of treatment? @ -No Exacerbation, Progression, or Severe Exacerbation? @ -No Poses a threat to life or bodily function? How? (Chest pain, [place], OR, pneumonia, PE, COPD, DKA, ARF, appy, cholecystitis, CVA, Diverticulitis, Homicidal, Suicidal, threat to staff... and all critical care pts) @ -No - Lab Data Result diagrams: 03/29/24 19:05 03/29/24 19:05 Lab Results 03/29/24 03/29/24 03/29/24 Range/Units 18:45 19:05 19:05 WBC 8.6 (3.8-10.6) k/uL RBC 4.79 (4.30-5.90) m/uL Hgb 13.6 (13.0-17.5) gm/dL Hct 41.4 (39.0-53.0) % MCV 86.4 (80.0-100.0) fL MCH 28.5 (25.0-35.0) pg MCHC 33.0 (31.0-37.0) g/dL RDW 16.0 H (11.5-15.5) % Plt Count 126 L (150-450) k/uL MPV 10.3 Neutrophils % 84 % Lymphocytes % 10 % Monocytes % 5 % Eosinophils % 1 % Basophils % 1 % Neutrophils # 7.3 (1.3-7.7) k/uL Lymphocytes # 0.8 L (1.0-4.8) k/uL Monocytes # 0.4 (0-1.0) k/uL Eosinophils # 0.1 (0-0.7) k/uL Basophils # 0.1 (0-0.2) k/uL Sodium 134 L (137-145) mmol/L Potassium 5.7 H (3.5-5.1) mmol/L Chloride 97 L (98-107) mmol/L Carbon Dioxide 21 L (22-30) mmol/L Anion Gap 16 mmol/L BUN 34 H (9-20) mg/dL Creatinine 1.79 H (0.66-1.25) mg/dL Est GFR (CKD-EPI)AfAm 54 (>60 ml/min/1.73 sqM) Est GFR (CKD-EPI)NonAf 47 (>60 ml/min/1.73 sqM) Glucose 393 H (74-99) mg/dL POC Glucose (mg/dL) 427 H (70-110) mg/dL POC Glu Polygraph Examiner ID [place] Calcium 9.6 (8.4-10.2) mg/dL Disposition Clinical Impression: Hyperglycemia Disposition: HOME SELF-CARE Condition: Fair Instructions (If sedation given, give patient instructions): Diabetic Hyper glycemia (ED) Is patient prescribed a controlled substance at d/c from ED?: No Referrals: Jose Espinoza DO [Primary Care Provider] - 1-2 days Time of Disposition: 21:44
[2024-03-29 19:27] LABS: African American GFR (CKD) 54 (>60 ml/min/1.73 sqM); Anion Gap 16 mmol/L; Blood Urea Nitrogen 34 mg/dL (9-20); Calcium 9.6 mg/dL (8.4-10.2); Carbon Dioxide 21 mmol/L (22-30); Chloride 97 mmol/L (98-107); Glucose 393 mg/dL (74-99); Non-African American GFR(CKD) 47 (>60 ml/min/1.73 sqM); Sodium 134 mmol/L (137-145)
[2024-03-29 19:30] LABS: Potassium 5.7 mmol/L (3.5-5.1)
[2024-03-29 19:57] LABS: Basophils # (A) 0.1 k/uL (0-0.2); Basophils % (A) 1 %; Eosinophils # (A) 0.1 k/uL (0-0.7); Eosinophils % (A) 1 %; HCT 41.4 % (39.0-53.0); HGB 13.6 gm/dL (13.0-17.5); Lymphocytes # (A) 0.8 k/uL (1.0-4.8); Lymphocytes % (A) 10 %; MCH 28.5 pg (25.0-35.0); MCV 86.4 fL (80.0-100.0); Mean Platelet Volume 10.3; Monocytes # (A) 0.4 k/uL (0-1.0); Monocytes % (A) 5 %; Neutrophils # (A) 7.3 k/uL (1.3-7.7); Neutrophils % (A) 84 %; Platelet Count 126 k/uL (150-450); RBC 4.79 m/uL (4.30-5.90); WBC 8.6 k/uL (3.8-10.6)
[2024-03-29] MEDS: SODIUM CHLORIDE 0.9% 1,000 ML IV STA ×2 (20:05→20:26)
[2024-03-29 22:08] LABS: Glucose,Whole Blood 50 mg/dL (70-110)
[2024-03-29 23:19] LABS: Glucose,Whole Blood 55 mg/dL (70-110)
[2024-03-29 23:24] VITALS: TEMP 98
[2024-03-29 23:44] LABS: Glucose,Whole Blood 77 mg/dL (70-110)
[2024-03-29 23:52] VITALS: BP 134/76; PULSE 104; RESP 17
== END 2024-03-29 23:52 | disposition home or self-care (01) ==
LOC: EC 18:42
DX: E11.65 Type 2 diabetes mellitus with hyperglycemia (principal)
CPT/HCPCS: 36415; 80048; 85025; 96360; 96361; 99284

== ENCOUNTER → 2024-06-16 | Outpatient (CLI) | payer BC ==
[2024-06-16 15:20] LABS: Appearance,Urine Clear (Clear); Bilirubin,Urine Negative (Negative); Blood,Urine Small (Negative); Color,Urine Yellow (Yellow); Ketones,Urine Negative (Negative); Nitrite,Urine Negative (Negative); Specific Gravity,Urine 1.017 (1.001-1.030)
[2024-06-16 15:28] LABS: Bacteria,Urine None Seen (None Seen)
[2024-06-16 15:36] LABS: Basophils # (A) 0.07 X 10*3/uL (0.00-0.10); Basophils % (A) 1.1 %; Eosinophils # (A) 0.33 X 10*3/uL (0.04-0.35); Eosinophils % (A) 5.3 %; HCT 43.9 % (39.6-50.0); HGB 14.3 g/dL (13.0-17.0); Lymphocytes # (A) 2.33 X 10*3/uL (0.90-5.00); Lymphocytes % (A) 37.5 %; MCH 28.6 pg (27.0-32.0); MCHC 32.6 g/dL (32.0-37.0); MCV 87.8 FL (80.0-97.0); Mean Platelet Volume 12.4 FL (9.5-12.2); Monocytes # (A) 0.38 X 10*3/uL (0.20-1.00); Monocytes % (A) 6.1 %; NRBC Per 100 WBC 0 X 10*3/uL (0.00-0.01); Neutrophils % (A) 49.8 %; Platelet Count 152 X 10*3/uL (140-440); RDW 14.1 % (11.5-14.5); WBC 6.22 X 10*3/uL (4.50-10.00)
[2024-06-16 16:42] LABS: % Iron Saturation 27.02 (15.00-50.00); Iron 87 UG/DL (65-175); Magnesium 2.5 mg/dL (1.5-2.4); Phosphorus 3.7 mg/dL (2.4-5.1); Total Iron Binding Capacity 322 UG/DL (228-460); Uric Acid 5.2 mg/dL (3.7-8.7)
[2024-06-16 18:10] LABS: Albumin 4.6 g/dL (3.8-4.9); BUN/Creat Ratio 16.41 Ratio (12.00-20.00); Blood Urea Nitrogen 27.9 mg/dL (9.0-27.0); Calcium 9.4 mg/dL (8.7-10.3); Glucose 140 mg/dL (70-110)
[2024-06-16 18:37] LABS: Urine Creatinine 98.2 mg/dL (39.0-259.0)
[2024-06-16 22:57] LABS: Chloride 105 mmol/L (96-109); Potassium 4.9 mmol/L (3.5-5.5); Sodium 144 mmol/L (135-145)
== END | disposition home or self-care (01) ==
LOC: LABWHC1 09:11
PROVIDERS: ATTEND Nurse Practitioner Acute Care
DX: E11.9 Type 2 diabetes mellitus without complications (principal)
CPT/HCPCS: 36415; 80048; 81001; 82040; 82043; 82306; 82570; 82728; 83540; 83550; 83735; 83970; 84100; 84550; 85025

== ENCOUNTER → 2024-09-28 | Outpatient (CLI) | payer BC ==
[2024-09-28 18:54] LABS: Basophils # (A) 0.09 X 10*3/uL (0.00-0.10); Basophils % (A) 1.7 %; Eosinophils # (A) 0.27 X 10*3/uL (0.04-0.35); Eosinophils % (A) 5.0 %; HCT 40.5 % (39.6-50.0); HGB 13.4 g/dL (13.0-17.0); Immature Grans, Automated 0.40 %; Lymphocytes # (A) 2.35 X 10*3/uL (0.90-5.00); Lymphocytes % (A) 43.6 %; MCH 29.1 pg (27.0-32.0); MCHC 33.1 g/dL (32.0-37.0); MCV 87.9 FL (80.0-97.0); Monocytes # (A) 0.33 X 10*3/uL (0.20-1.00); Monocytes % (A) 6.1 %; NRBC Per 100 WBC 0 X 10*3/uL (0.00-0.01); Neutrophils # (A) 2.33 X 10*3/uL (1.80-7.70); Neutrophils % (A) 43.2 %; Platelet Count 140 X 10*3/uL (140-440); RBC 4.61 X 10*6/uL (4.40-5.60); RDW 14.7 % (11.5-14.5); WBC 5.39 X 10*3/uL (4.50-10.00)
[2024-09-28 19:44] LABS: Albumin 4.7 g/dL (3.8-4.9); Anion Gap 10.90 mmol/L (4.00-12.00); BUN/Creat Ratio 15.80 Ratio (12.00-20.00); Blood Urea Nitrogen 23.7 mg/dL (9.0-27.0); Calcium 9.5 mg/dL (8.7-10.3); Carbon Dioxide 26.1 mmol/L (21.6-31.8); Chloride 102 mmol/L (96-109); Glucose 116 mg/dL (70-110); Magnesium 2.3 mg/dL (1.5-2.4); Potassium 5.3 mmol/L (3.5-5.5); Sodium 139 mmol/L (135-145)
== END | disposition home or self-care (01) ==
LOC: LABWHC1 11:42
PROVIDERS: ATTEND Internal Medicine Nephrology
DX: N18.31 Chronic kidney disease, stage 3a (principal)
CPT/HCPCS: 36415; 80048; 82040; 82043; 82306; 82570; 83735; 83970; 84100; 85025